=== PATIENT | male | born 1945 | race Caucasian/White ===

== ENCOUNTER 2017-07-07 12:32 | Observation (INO) | payer OTHER ==
--- OUTSIDE RECORDS SUMMARY | 2017-07-07 12:35 | XMS REPORT ---
:1945 Author Organization eClinicalWorks Care Team Providers Name Role Phone Drake Blanca Provider Role Unavailable Allergies, Adverse Reactions, Alerts Substance Reaction Event Type penicillin Info Not Available Drug Allergy Sulfa Info Not Available Drug Allergy Tetanus swelling Drug Allergy Low-Dose Aspirin hives Drug Allergy Problems Problem Type Condition Code Onset Dates Condition Status Problem Abnormal CT scan R93.8 Active Problem Lumbar radiculopathy M54.16 Active Problem Pure hypercholesterolemia E78.00 Active Problem Allergic rhinitis J30.9 Active Problem Obesity E66.9 Active Problem Hyperlipidemia E78.5 Active Problem Plantar fasciitis M72.2 Active Problem Colonic polyp K63.5 Active Problem Peripheral neuropathy G62.9 Active Problem HTN (hypertension) I10 Active Assessment Cough R05 Active Assessment Allergic rhinitis, unspecified J30.9 Active seasonality, unspecified trigger Problem Spinal stenosis of lumbar region M48.062 Active with neurogenic claudication Problem Anemia, mild D64.9 Active Medications Medication Code Code Instructions Start End Status Dosage System Date Cymbalta [facility] 73490199538 30 MG Orally Active 1 capsule Once a day Multivitamins [facility] 65247-38960 Active not defined Lisinopril [facility] 41237323804 20MG Active TAKE ONE TABLET BY MOUTH ONCE DAILY Triamcinolone ND 29698866566 0.1 % Mar 28, Active 1 application Acetonide Externally 2018 to affected Twice a day area PredniSONE ND 08986656465 20 MG Orally Active 1 tablet BID Fish Oil [facility] [address]-58 Active not defined CoQ-10 [facility] 89782-95752 Active not defined Proctosol HC [facility] 06102922695 2.5 % Rectal Active 1 application Twice a day to affected area Claritin [facility] 66947311162 10 MG Orally Active 1 capsule Once a day Flor Allergy ND 16512747846 180 MG Orally Active 1 tablet as Once a day needed Pravastatin ND 44488870165 40MG Active TAKE ONE Sodium TABLET BY MOUTH ONCE [place] [address]-49 Active not defined MiraLax [facility] 06622974947 - Orally Active not defined Results No Known Results Summary Purpose eClinicalWorks Submission
[2017-07-07] MEDS ORDERED: AZITHROMYCIN IV 500 MG in NA CHLORIDE 0.9% 250 ML IVPB ONE (14:00)
--- NOTE | 2017-07-07 14:22 | ER ---
Nurse's Notes [facility] Name: Terrence Monroy Age: 71 yrs Sex: Male : 1945 Arrival Date: 07/07/2017 Time: 12:36 Bed 16 Private MD: Alissa Uribe Diagnosis: Pneumonia due to other specified bacteria;Fever, unspecified;Hypoxemia Presentation: 07/07 12:39 Presenting complaint: Patient states: I have had a cough for over a week and its la1 getting worse, I get SOB very easy. Transition of care: patient was not received from another setting of care. Onset of symptoms was July 07, 2017. Initial Sepsis Screen: Does the patient meet any 2 criteria? RR > 20 per min. HR > 90 bpm. Does the patient have a suspected source of infection? Yes: Productive cough/pneumonia. Care prior to arrival: None. 12:39 Method Of Arrival: Ambulatory la1 12:39 Acuity: CARMEN 2 la1 Triage Assessment: 12:45 Respiratory: Onset: The symptoms/episode began/occurred gradually, the patient has rb1 moderate shortness of breath. Historical: - Allergies: 12:40 Aspirin; la1 12:40 PENICILLINS; la1 12:40 Tetanus-Diphtheria Toxoids-Td; la1 12:40 Sulfa (Sulfonamide Antibiotics); la1 - PMHx: 12:40 High Cholesterol; Hypertension; la1 - Immunization history:: Adult Immunizations up to date. - Social history:: Smoking status: Patient/guardian denies using tobacco. - Family history:: not pertinent. Screenin:45 Abuse screen: Denies threats or abuse. Nutritional screening: No deficits noted. rb1 Tuberculosis screening: No symptoms or risk factors identified. Fall Risk None identified. Assessment: 12:45 General: Appears in no apparent distress. comfortable, Behavior is calm, cooperative. rb1 Neuro: Level of Consciousness is awake, alert, obeys commands, Oriented to person, place, time, situation. Cardiovascular: Capillary refill < 3 seconds is brisk in bilateral fingers. Respiratory: Reports cough that is productive. Respiratory: Airway is patent Respiratory effort is even, labored, Respiratory pattern is regular, symmetrical. Derm: Skin is pink, warm \T\ dry. Musculoskeletal: Range of motion: intact in all extremities. 12:45 Pain: Denies pain. Cardiovascular: Rhythm is regular. rb1 12:45 Respiratory: Breath sounds are diminished bilaterally. Breath sounds with rhonchi rb1 Breath sounds with wheezes bilaterally. 13:40 Reassessment: Patient appears in no apparent distress at this time. No changes from rb1 previously documented assessment. 14:30 Reassessment: Patient appears in no apparent distress at this time. Patient and/or rb1 family updated on plan of care and expected duration. Pain level reassessed. Patient is alert, oriented x 3, equal unlabored respirations, skin warm/dry/pink. Medications delayed due to blood cultures needing to be drawn. 15:27 Reassessment: Patient appears in no apparent distress at this time. No changes from rb1 previously documented assessment. 16:20 Reassessment: Patient appears in no apparent distress at this time. Patient and/or rb1 family updated on plan of care and expected duration. Pain level reassessed. Patient is alert, oriented x 3, equal unlabored respirations, skin warm/dry/pink. Called report to SHANNON Nails. Information from the SB[facility] was given. All questions asked and answered. Patient denies pain at this time. Patient states symptoms have improved. Vital Signs: 12:40 BP 131 / 70; Pulse 132; Resp 24; Temp 98.3(O); Pulse Ox 91% on R/A; Weight 108.86 kg; la1 Height 6 ft. 0 in. (182.88 cm); 14:00 BP 136 / 72; Pulse 98; Resp 18; Pulse Ox 98% on R/A; rb1 15:00 BP 129 / 79; Pulse 89; Resp 19; Pulse Ox 99% on R/A; rb1 16:00 BP 132 / 71; Pulse 91; Resp 19; Pulse Ox 98% on R/A; rb1 12:40 Body Mass Index 32.55 (108.86 kg, 182.88 cm) la1 ED Course: 12:36 Patient arrived in ED. sb2 12:37 Alissa Uribe MD is Private Physician. sb2 12:39 Triage completed. la1 12:40 Arm band placed on left wrist. la1 12:42 Jevon Elizabeth MD is Attending Physician. gagandeep 12:45 Patient has correct armband on for positive identification. Bed in low position. Call rb1 light in reach. Pulse ox on. NIBP on. Warm blanket given. 13:02 Tara Rondon RN is Primary Nurse. rb1 13:52 X-ray completed. jw2 13:53 Chest Pa And Lat (2 Views) XRAY In Process Unspecified. EDMS 14:08 Inserted saline lock: 20 gauge in right antecubital area, using aseptic technique. aa5 Blood collected. 14:08 Initial lab(s) drawn, by me, sent to lab. First set of blood cultures drawn by me. aa5 14:20 Harley Navarro MD is Hospitalizing Provider. [facility] 14:22 Unable to collect 2nd set of blood cultures, lab contacted and construction laborer will come draw. aa5 17:00 No provider procedures requiring assistance completed. Patient admitted, IV remains in rb1 place. Administered Medications: 14:40 Drug: AtroVENT Aerosol 0.5 mg Route: Inhalation; rb1 14:40 Drug: SOLU-Medrol 125 mg Route: IVP; Site: right antecubital; rb1 15:59 Follow up: Response: No adverse reaction rb1 14:40 Drug: Xopenex 2.5 mg Route: Inhalation; rb1 14:45 Drug: NS 0.9% 1000 ml Route: IV; Rate: 1 bolus; Site: right antecubital; rb1 16:14 Follow up: IV Status: Completed infusion rb1 14:45 Drug: Rocephin - (cefTRIAXone) 2 grams Route: IVPB; Infused Over: 30 mins; Site: right rb1 antecubital; 14:50 Follow up: IV Status: Completed infusion rb1 15:10 Follow up: Response: No adverse reaction rb1 14:50 Drug: Zithromax 500 mg Route: IVPB; Infused Over: 1 hrs; Site: right antecubital; rb1 15:54 Follow up: Response: No adverse reaction; IV Status: Completed infusion rb1 15:54 Drug: Xopenex 2.5 mg Route: Inhalation; rb1 Outcome: 14:21 Decision to Hospitalize by Provider. gagandeep 17:00 Patient left the ED. rb1 17:00 Admitted to Tele accompanied by tech, via wheelchair, room 429, with chart, Report rb1 called to SHANNON Nails 17:00 Condition: stable 17:00 Instructed on the need for admit. Signatures: Dispatcher [employer] EDJevon Snider MD MD cha Calderon, Audri RN RN aa5 Willian Denny RN RN la1 Tara Rondon RN RN rb1 Coco Tian jw2 Rachel Dudley sb2 Corrections: (The following items were deleted from the chart) 15:57 12:45 Respiratory: Airway is patent Respiratory effort is even, unlabored, Respiratory rb1 pattern is regular, symmetrical, rb1 18:51 17:14 Patient left the ED. rb1 rb1 18:54 16:20 Reassessment: Patient appears in no apparent distress at this time. Patient rb1 and/or family updated on plan of care and expected duration. Pain level reassessed. Patient is alert, oriented x 3, equal unlabored respirations, skin warm/dry/pink. Patient denies pain at this time. Patient states symptoms have improved. rb1
--- NOTE | 2017-07-07 14:22 | EDPHYS ---
Physician Documentation [facility] Name: Terrence Monroy Age: 71 yrs Sex: Male : 1945 Arrival Date: 07/07/2017 Time: 12:36 Bed 16 Private MD: Alissa Uribe ED Physician Jevon Elizabeth HPI: 07/07 13:11 This 71 yrs old Male presents to ER via Ambulatory with complaints of gagandeep Productive Cough. 13:11 The patient or guardian reports cough, difficulty breathing. Onset: The gagandeep symptoms/episode began/occurred 3 day(s) ago. Severity of symptoms: At their worst the symptoms were moderate, in the emergency department the symptoms are unchanged. Modifying factors: The symptoms are alleviated by nothing, the symptoms are aggravated by nothing. Associated signs and symptoms: The patient has no apparent associated signs or symptoms. The patient has not experienced similar symptoms in the past. Historical: - Allergies: 12:40 Aspirin; la1 12:40 PENICILLINS; la1 12:40 Tetanus-Diphtheria Toxoids-Td; la1 12:40 Sulfa (Sulfonamide Antibiotics); la1 - PMHx: 12:40 High Cholesterol; Hypertension; la1 - Immunization history:: Adult Immunizations up to date. - Social history:: Smoking status: Patient/guardian denies using tobacco. - Family history:: not pertinent. ROS: 13:11 Constitutional: Negative for fever, chills, and weight loss, Eyes: Negative for injury, gagandeep pain, redness, and discharge, ENT: Negative for injury, pain, and discharge, Neck: Negative for injury, pain, and swelling, Abdomen/GI: Negative for abdominal pain, nausea, vomiting, diarrhea, and constipation, Back: Negative for injury and pain, : Negative for injury, bleeding, discharge, and swelling, MS/Extremity: Negative for injury and deformity, Skin: Negative for injury, rash, and discoloration, Neuro: Negative for headache, weakness, numbness, tingling, and seizure, Psych: Negative for depression, anxiety, suicide ideation, homicidal ideation, and hallucinations, Allergy/Immunology: Negative for hives, rash, and allergies, Endocrine: Negative for neck swelling, polydipsia, polyuria, polyphagia, and marked weight changes, Hematologic/Lymphatic: Negative for swollen nodes, abnormal bleeding, and unusual bruising. 13:11 Cardiovascular: Positive for chest pain, Negative for palpitations. Exam: 13:11 Constitutional: This is a well developed, well nourished patient who is awake, alert, gagandeep and in no acute distress. Head/Face: Normocephalic, atraumatic. Eyes: Pupils equal round and reactive to light, extra-ocular motions intact. Lids and lashes normal. Conjunctiva and sclera are non-icteric and not injected. Cornea within normal limits. Periorbital areas with no swelling, redness, or edema. ENT: Nares patent. No nasal discharge, no septal abnormalities noted. Tympanic membranes are normal and external auditory canals are clear. Oropharynx with no redness, swelling, or masses, exudates, or evidence of obstruction, uvula midline. Mucous membranes moist. Neck: Trachea midline, no thyromegaly or masses palpated, and no cervical lymphadenopathy. Supple, full range of motion without nuchal rigidity, or vertebral point tenderness. No Meningismus. Chest/axilla: Normal chest wall appearance and motion. Nontender with no deformity. No lesions are appreciated. Cardiovascular: Regular rate and rhythm with a normal S1 and S2. No gallops, murmurs, or rubs. Normal PMI, no JVD. No pulse deficits. Abdomen/GI: Soft, non-tender, with normal bowel sounds. No distension or tympany. No guarding or rebound. No evidence of tenderness throughout. Back: No spinal tenderness. No costovertebral tenderness. Full range of motion. Male : Normal genitalia with no discharge or lesions. Skin: Warm, dry with normal turgor. Normal color with no rashes, no lesions, and no evidence of cellulitis. MS/ Extremity: Pulses equal, no cyanosis. Neurovascular intact. Full, normal range of motion. Neuro: Awake and alert, GCS 15, oriented to person, place, time, and situation. Cranial nerves II-XII grossly intact. Motor strength 5/5 in all extremities. Sensory grossly intact. Cerebellar exam normal. Normal gait. Psych: Awake, alert, with orientation to person, place and time. Behavior, mood, and affect are within normal limits. 13:11 Respiratory: moderate respiratory distress is noted, Respirations: normal, Breath sounds: decreased breath sounds, rhonchi, wheezing: Respiratory rate: 24 Vital Signs: 12:40 BP 131 / 70; Pulse 132; Resp 24; Temp 98.3(O); Pulse Ox 91% on R/A; Weight 108.86 kg; la1 Height 6 ft. 0 in. (182.88 cm); 14:00 BP 136 / 72; Pulse 98; Resp 18; Pulse Ox 98% on R/A; rb1 15:00 BP 129 / 79; Pulse 89; Resp 19; Pulse Ox 99% on R/A; rb1 16:00 BP 132 / 71; Pulse 91; Resp 19; Pulse Ox 98% on R/A; rb1 12:40 Body Mass Index 32.55 (108.86 kg, 182.88 cm) la1 MDM: 12:42 Patient medically screened. [facility] 13:18 Data reviewed: vital signs, nurses notes, lab test result(s), EKG, radiologic studies, gagandeep plain films. 07/07 13:11 Order name: Basic Metabolic Panel; Complete Time: 15:06 [facility] 07/07 13:11 Order name: BNP; Complete Time: 15: [facility] 07/07 13:11 Order name: CBC with Diff; Complete Time: 15: [facility] 07/07 13:11 Order name: Ckmb; Complete Time: 15: [facility] 07/07 13:11 Order name: CPK; Complete Time: 15: [facility] 07/07 13:11 Order name: LFT's; Complete Time: 15: [facility] 07/07 13:11 Order name: Magnesium; Complete Time: 15:06 [facility] 07/07 13:11 Order name: PT-INR; Complete Time: 15: [facility] 07/07 13:11 Order name: Ptt, Activated; Complete Time: 15: [facility] 07/07 13:11 Order name: Troponin (emerg Dept Use Only); Complete Time: 15:06 [facility] 07/07 13:11 Order name: Lactate; Complete Time: 15: [facility] 07/07 13:11 Order name: Blood Culture Adult (2) [facility] 07/07 13:11 Order name: Procalcitonin; Complete Time: 15:06 [facility] 07/07 13:12 Order name: Blood Culture EDNE 07/07 13:11 Order name: EKG; Complete Time: 13:13 [facility] 07/07 13:11 Order name: Cardiac monitoring; Complete Time: 14:44 [facility] 07/07 13:11 Order name: EKG - Nurse/Tech; Complete Time: 16:15 [facility] 07/07 13:11 Order name: IV Saline Lock; Complete Time: 14:43 [facility] 07/07 13:11 Order name: Labs collected and sent; Complete Time: 14:44 [facility] 07/07 13:11 Order name: O2 Per Protocol; Complete Time: 14:44 [facility] 07/07 13:11 Order name: Chest Pa And Lat (2 Views) XRAY; Complete Time: 15:06 [facility] 07/07 16:28 Order name: Urine Dipstick--Ancillary (enter results) ag 07/07 17:07 Order name: Urine Dipstick-Ancillary EDMS 07/07 13:11 Order name: O2 Sat Monitoring; Complete Time: 14:44 [facility] 07/07 13:11 Order name: Urine Dipstick-Ancillary (obtain specimen); Complete Time: 16:22 [facility] Administered Medications: 14:40 Drug: AtroVENT Aerosol 0.5 mg Route: Inhalation; rb1 14:40 Drug: SOLU-Medrol 125 mg Route: IVP; Site: right antecubital; rb1 15:59 Follow up: Response: No adverse reaction rb1 14:40 Drug: Xopenex 2.5 mg Route: Inhalation; rb1 14:45 Drug: NS 0.9% 1000 ml Route: IV; Rate: 1 bolus; Site: right antecubital; rb1 16:14 Follow up: IV Status: Completed infusion rb1 14:45 Drug: Rocephin - (cefTRIAXone) 2 grams Route: IVPB; Infused Over: 30 mins; Site: right rb1 antecubital; 14:50 Follow up: IV Status: Completed infusion rb1 15:10 Follow up: Response: No adverse reaction rb1 14:50 Drug: Zithromax 500 mg Route: IVPB; Infused Over: 1 hrs; Site: right antecubital; rb1 15:54 Follow up: Response: No adverse reaction; IV Status: Completed infusion rb1 15:54 Drug: Xopenex 2.5 mg Route: Inhalation; rb1 Disposition: 07/07/17 14:21 Hospitalization ordered by Harley Navarro for Inpatient Admission. Preliminary diagnosis are Pneumonia due to other specified bacteria, Fever, unspecified, Hypoxemia. - Bed requested for Telemetry/MedSurg (Inpatient). - Status is Inpatient Admission. rb1 - Condition is Fair. - Problem is new. - Symptoms have improved. UTI on Admission? No Signatures: Dispatcher [employer] EDMS Jevon Elizabeth MD MD cha Attema, Lee RN RN la1 Mary Jo Chandra Rebecca, RN RN rb1 Corrections: (The following items were deleted from the chart) 15:59 14:21 Hospitalization Ordered by Harley Navarro MD for Inpatient Admission. ag Preliminary diagnosis is Pneumonia due to other specified bacteria; Fever, unspecified; Hypoxemia. Bed requested for Telemetry/MedSurg (Inpatient). Status is Inpatient Admission. Condition is Fair. Problem is new. Symptoms have improved. UTI on Admission? No. [facility] 17:14 15:59 07/07/2017 14:21 Hospitalization Ordered by Harley Navarro MD for Inpatient rb1 Admission. Preliminary diagnosis is Pneumonia due to other specified bacteria; Fever, unspecified; Hypoxemia. Bed requested for Telemetry/MedSurg (Inpatient). Status is Inpatient Admission. Condition is Fair. Problem is new. Symptoms have improved. UTI on Admission? No. ag
[2017-07-07 14:23] LABS: Absolute Lymphocytes (CBC) 2.2 K/uL (0.7-4.9); Absolute Monocytes 1.8 K/uL (0.1-1.3); Absolute Neutrophil 11.9 K/uL (1.8-8.0); Basophils % 0.6 % (0-1.3); Eosinophils % 0.9 % (0-4.4); Hematocrit 43.3 % (39.6-49.0); Lymphocytes % 13.6 % (15.3-44.8); MCH 31.4 pg (27.0-35.0); MCV 94.9 fL (80-100); MPV 8.8 fL (7.6-11.3); RBC Red Blood Cell Count 4.56 M/uL (4.33-5.43)
[2017-07-07 14:26] LABS: Protime INR 0.96
[2017-07-07 14:34] LABS: Potassium 4.3 mEq/L (3.6-5.0)
[2017-07-07 14:40] LABS: Bilirubin Direct 0.1 mg/dL (0-0.2); Bilirubin Total 0.8 mg/dL (0.3-1.2); Magnesium 2.1 mg/dL (1.8-2.5); Protein, Total 8.1 g/dL (6.0-8.3)
[2017-07-07 14:43] LABS: CKMB Creatine Kinase MB 1.7 ng/ml (0.3-4.0)
[2017-07-07] MEDS ORDERED: CEFTRIAXONE/SWI 2gm 2 GM/20 ML SYR IVP ONE (15:00)
[2017-07-07] MEDS ORDERED: CEFTRIAXONE/SWI 2gm 2 GM/20 ML SYR IV ONE (15:00)
--- NOTE | 2017-07-07 15:03 | RAD REPORT ---
EXAM DESCRIPTION: Raudel Cueva And Lat (2 Views)07/07/2017 1:58 pm CLINICAL HISTORY: Cough COMPARISON: August 2016 FINDINGS: Mild reticulonodular opacities are present within the left lower lobe. Right lung appears clear. The heart is normal size IMPRESSION: Mild reticulonodular opacities within left lower lobe may indicate an atypical pneumonia
--- NOTE | 2017-07-07 15:24 | P.HP ---
Certification for Inpatient Patient admitted to: Inpatient With expected LOS: >2 Midnights Practitioner: I am a practitioner with admitting privileges, knowledge of patient current condition, hospital course, and medical plan of care. Services: Services provided to patient in accordance with Admission requirements found in Title 42 Section 412.3 of the Code of Federal Regulations Patient History Date of Service: 07/07/17 Reason for admission: Productive cough and shortness of breath History of Present Illness: Patient is 71 years of age no significant past medical history admitted with 1 week history of a productive cough he went to urgent care it and was given medication for 10 days I presume antibiotic he took some Mucinex DM over-the- counter with no relief any ended up here in the emergency room while he brought his were HIDA severe my good in attack this morning also has some dyspnea for the past couple of days he denies any baseline dyspnea quit smoking 15 years ago former pack-a-day smoker no prior history of obstructive airways disease or any cardiac history Allergies aspirin Allergy (Verified 04/18/16 16:12) Itching/Hives/Rash Penicillins Allergy (Verified 04/18/16 16:12) Hives/Rash Tetanus Vaccines and Toxoid [Tetanus Vaccines & Toxoid] Allergy (Verified 16:12) Anaphylaxis Teta Allergy (Uncoded 09/06/16 17:31) Unknown Home Medications: Acetaminophen [Pain Reliever] 500 mg PO DAILY 06/23/14 Fish Oil/Borage/Flax/Om3,6,9#1 [[place] 3-6-9 1,200 mg Softgel] 1,200 mg PO DAILY 06/23/14 Lisinopril [Prinivil*] 20 mg PO [id number] 06/23/14 Multivitamin/Iron/Folic Acid [Multi-Day Plus Iron Tablet] 1 each PO DAILY Pravastatin [Pravachol*] 40 mg PO DAILY 06/23/14 Ubidecarenone [Co Q-10] 200 mg PO DAILY 06/23/14 Duloxetine HCl [Cymbalta] 30 mg PO DAILY 04/17/16 Polyethylene Glycol 3350 [Miralax] 17 gm PO DAILY 04/17/16 Turmeric/Turmeric Root Extract [Turmeric] 500 mg PO DAILY 04/17/16 - Past Medical/Surgical History Diabetic: No -: HTN -: ARTHRITIS -: CHOLESTEROL -: back surg 2006 -: back surg 2012 -: right shoulder replacement 2013 -: right knee replacement 2014 -: left knee replacement 2015 - Family History Father -: Heart disease, Hypertension Notes: mother had 2 strokes, bro diabetes Mother -: Stroke - Social History Alcohol use: No CD- Drugs: No Caffeine use: Yes Review of Systems 10-point ROS is otherwise unremarkable Physical Examination - Physical Exam General: Alert, Oriented x3, Mild distress HEENT: Atraumatic Neck: Supple Respiratory: Crackles/rales (Basilar crackles), Expiratory wheezes Cardiovascular: No edema, Regular rate/rhythm, Normal S1 S2 Gastrointestinal: Normal bowel sounds, Soft and benign Musculoskeletal: No clubbing, No swelling, No contractures Integumentary: No rashes, No breakdown, No significant lesion Neurological: Normal speech, Normal strength at 5/5 x4 extr, Cranial nerves 3- 12 intact - Studies Laboratory Data (last 24 hrs) 07/07/17 14:08: PT 11.3, INR 0.96, APTT 24.1 L 07/07/17 14:08: WBC 16.1 H, Hgb 14.3, Hct 43.3, Plt Count 247 07/07/17 14:08: B-Natriuretic Peptide 29 07/07/17 14:08: Sodium 133 L, Potassium 4.3, BUN 24 H, Creatinine 1.10, Glucose 96, Magnesium 2.1, Total Bilirubin 0.8, AST 23, ALT 26, Alkaline Phosphatase 64 Assessment and Plan - Problems (Diagnosis) (1) COPD (chronic obstructive pulmonary disease) Current Visit: Yes Status: Acute Plan: Patient is 71 years of age admitted with a week's history of or duct of cough that would not and improve with antibiotics and Mucinex DM admission precipitated by a shortness of breath is a former smoker the multiple orthopedic problems blood pressure thus well controlled no prior history of coronary artery disease I suspect that he has underlying COPD chest x-rays clear labs unremarkable apart from a mildly elevated white count treated with steroids fluoroquinolones and bronchodilators he can probably be discharged home tomorrow on low-dose prednisone 10 mg twice a day for 7 days and Advair follow-up with me in 2 weeks may be levofloxacin for 304 days 2D echo with Doppler Rodri room-air pulse ox - Advance Directives Does patient have a Living Will: Yes Does patient have a Durable POA for Healthcare: Yes
[2017-07-07 17:06] LABS: Urine Blood NEGATIVE (NEG); Urine Glucose NEGATIVE (NEG); Urine Protein NEGATIVE (NEG); Urine Specific Gravity 1.015 (1.005-1.030)
[2017-07-07] MEDS: levoFLOXacin 500 MG TAB PO SCH (17:22)
[2017-07-07] MEDS: METHYLPREDNISOLONE 40 MG INJ IV SCH (17:22)
[2017-07-07 18:47] VITALS: BMI 4686.6
[2017-07-07] MEDS: ARFORMOTEROL TARTRATE 15 MCG/2 ML VIAL.NEB NEB SCH (20:07)
[2017-07-07] MEDS: IPRATROPIUM BROM 0.5MG/2.5ML NEB SCH (20:07)
[2017-07-08] MEDS: METHYLPREDNISOLONE 40 MG INJ IV SCH ×2 (00:42→09:16)
[2017-07-08] MEDS: IPRATROPIUM BROM 0.5MG/2.5ML NEB SCH ×3 (01:32→14:44)
[2017-07-08 05:27] LABS: Hematocrit 37.7 % (39.6-49.0); MCH 31.8 pg (27.0-35.0); MCV 95.5 fL (80-100); MPV 9.1 fL (7.6-11.3); RBC Red Blood Cell Count 3.95 M/uL (4.33-5.43)
[2017-07-08] MEDS ORDERED: LISINOPRIL 10 MG TAB PO SCH (06:00)
--- NOTE | 2017-07-08 08:01 | EKG ---
Test Date: 2017-07-07 Test Time: 16:14:11 Prosthodontist/Owner: JOSHUA MEASUREMENT RESULTS: Intervals: Rate: 101 MD: 138 QRSD: 92 QT: 366 QTc: 474 [place]: P: 58 MD: 138 QRS: -23 T: 59 INTERPRETIVE STATEMENTS: Sinus tachycardia Otherwise normal ECG Compared to ECG 09/06/2016 12:56:01 Sinus rhythm no longer present Atrial premature complex(es) no longer present Prolonged QT interval no longer present Electronically Signed On 07-08-17 07:59:54 CDT by Daniel Gandara
[2017-07-08] MEDS: ARFORMOTEROL TARTRATE 15 MCG/2 ML VIAL.NEB NEB SCH (08:25)
[2017-07-08] MEDS ORDERED: DULOXETINE 30 MG CAP PO SCH (09:00)
[2017-07-08] MEDS: levoFLOXacin 500 MG TAB PO SCH (09:16)
--- NOTE | 2017-07-08 10:42 | RAD REPORT ---
EXAM DESCRIPTION: RAD - Chest Pa And Lat (2 Views) - 07/08/2017 10:34 am CLINICAL HISTORY: Pneumonia, COPD COMPARISON: 07/07/2017, 09/06/2016 FINDINGS: Mild diffuse COPD is present. Reticular opacities in left lung base posteriorly appears es sentially stable since comparative study. The heart is normal in size. No displaced fractures. Bilate ral shoulder arthroplasty noted. IMPRESSION: Diffuse COPD with no significant change in reticular opacity in the left mid lung night clerk iorly.
--- NOTE | 2017-07-08 11:05 | ECHO ---
HEIGHT: 0 ft 6 in WEIGHT: 240 lb 0 oz DATE OF STUDY: 10/08/[address]: Harley Navarro MD 2-DIMENSIONAL: YES M.MODE: YES DOPPLER: YES COLOR FLOW: YES TDS: NO PORTABLE: NO DEFINITY: NO BUBBLE STUDY: NO DIAGNOSIS: DYSPNEA CARDIAC HISTORY: CATHERIZATION: NO SURGERY: NO PROSTHETIC VALVE: NO PACEMAKER: NO MEASUREMENTS (cm) DIASTOLIC (NORMALS) SYSTOLIC (NORMALS) IVSd 1.1 (0.6-1.2) LA Diam 3.8 (1.9-4.0) LVEF 74% LVIDd 4.3 (3.5-5.7) LVIDs 2.5 (2.0-3.5) %FS 43% LVPWd 1.0 (0.6-1.2) Ao Diam 2.9 (2.0-3.7) 2 DIMENSIONAL ASSESSMENT: RIGHT ATRIUM: NORMAL LEFT ATRIUM: NORMAL RIGHT VENTRICLE: NORMAL LEFT VENTRICLE: NORMAL TRICUSPID VALVE: NORMAL MITRAL VALVE: NORMAL PULMONIC VALVE: NORMAL AORTIC VALVE: MILD SCLEROSIS PERICARDIAL EFFUSION: NONE AORTIC ROOT: NORMAL LEFT VENTRICULAR WALL MOTION: NORMAL. DOPPLER/COLOR FLOW: NO AORTIC STENOSIS OR AORTIC REGURGITATION. NORMAL CARDIAC DOPPLER. COMMENTS: NORMAL LEFT VENTRICULAR EJECTION FRACTION. AORTIC SCLEROSIS WITH NO AORTIC STENOSIS OR AORTIC REGURGITATION. OTHERWISE NORMAL 2D CHO WITH DOPPLER. TECHNOLOGIST: ELVIN PACK
--- NOTE | 2017-07-08 15:02 | P.DS ---
Admission Date: 07/07/17 Discharge Date: 07/08/17 Primary Care Provider: Dr. Uribe Disposition: ROUTINE DISCHARGE Discharge Condition: GOOD Reason for Admission: Productive cough and shortness of breath Consultations: Pulmonology-Dr. Navarro Procedures: Echocardiogram: Ejection fraction 74% Chest xray: FINDINGS: Mild reticulonodular opacities are present within the left lower lobe. Right lung appears clear. The heart is normal size IMPRESSION: Mild reticulonodular opacities within left lower lobe may indicate an atypical pneumonia - Problems (1) Shortness of breath Current Visit: Yes Status: Acute (2) Hypertension Current Visit: Yes Status: Chronic Qualifiers: Hypertension type: essential hypertension Qualified Code(s): I10 - Essential (primary) hypertension (3) Pneumonia Current Visit: Yes Status: Acute Qualifiers: Pneumonia type: due to unspecified organism Laterality: left Lung location: lower lobe of lung Qualified Code(s): J18.1 - Lobar pneumonia, unspecified organism (4) Hyperlipidemia Current Visit: Yes Status: Chronic Qualifiers: Hyperlipidemia type: unspecified Qualified Code(s): E78.5 - Hyperlipidemia , unspecified (5) CHF (congestive heart failure) Current Visit: Yes Status: Chronic Qualifiers: Heart failure type: diastolic Heart failure chronicity: chronic Qualified Code(s): I50.32 - Chronic diastolic (congestive) heart failure (6) COPD (chronic obstructive pulmonary disease) Current Visit: Yes Status: Acute Qualifiers: COPD type: COPD with acute exacerbation Qualified Code(s): J44.1 - Chronic obstructive pulmonary disease with (acute) exacerbation (7) Former tobacco use Current Visit: Yes Status: Chronic Brief History of Present Illness: 71-year-old male presented emergency room with increasing shortness of breath and cough. Patient evaluated emergency room. COPD exacerbation with possible atypical pneumonia was suspected. Patient was admitted for evaluation and treatment. Hospital Course: Patient presented with shortness of breath and cough. Patient with history of former tobacco use. Patient evaluated by pulmonology. Pulmonology felt the patient had underlying COPD exacerbation with atypical pneumonia. Echocardiogram showed an ejection fraction 75%. A component of possible diastolic CHF was also identified. Patient did well during the course of his stay. At discharge he did not require any oxygen. He was without any significant chest pain or shortness of breath. At discharge for his COPD has been started on Symbicort 160 mcg 2 puffs twice daily and Pro air 2 puffs 3 times a day as needed for shortness of breath. Patient will continue with prednisone 20 mg 1 pill twice daily for 5 days then 1 pill once daily for 5 days. Recommendation is to recheck chest x-ray in 2-4 weeks to monitor his progress. Recommendation is for the patient follow up with pulmonology as an outpatient for pulmonary function test evaluation. Patient found to have atypical pneumonia. Patient will continue with Levaquin 500 mg 1 pill daily for 7 days. As for possible CHF patient will continue with a 1500 cc per day fluid restriction. This can be further monitored and evaluated as an outpatient by his PCP. Patient has HTN. He will continue with his medication.Recommendation is to maintain blood pressures less 150/80. Further adjustment can be done by his PCP. Patient has hyperlipidemia. Patient continue with his medication. Vital Signs/Physical Exam: Temp Pulse Resp BP Pulse Ox 97.1 F 70 18 118/64 93 07/08/17 12:00 07/08/17 12:00 07/08/17 12:00 07/08/17 12:00 07/08/17 12:00 General: Alert, In no apparent distress, Oriented x3, Cooperative HEENT: Atraumatic Neck: Supple Respiratory: Expiratory wheezes (Minimal wheezing bilateral) Cardiovascular: Normal pulses, Regular rate/rhythm Gastrointestinal: Normal bowel sounds, Soft and benign, Non-distended, No tenderness, No masses, No rebound, No guarding Musculoskeletal: No erythema, No tenderness, No warmth Integumentary: No tenderness/swelling, No erythema, No warmth, No cyanosis Neurological: Normal speech, Normal strength at 5/5 x4 extr, Normal tone, Normal affect Lymphatics: No axilla or inguinal lymphadenopathy Laboratory Data at Discharge: WBC 13.0 K/uL (4.3-10.9) H D 07/08/17 04:58 Hgb 12.6 g/dL (13.6-17.9) L 07/08/17 04:58 Hct 37.7 % (39.6-49.0) L 07/08/17 04:58 Plt Count 217 K/uL (152-406) 07/08/17 04:58 PT 11.3 SECONDS (9.5-12.5) 07/07/17 14:08 INR 0.96 07/07/17 14:08 APTT 24.1 SECONDS (24.3-36.9) L 07/07/17 14:08 Sodium 133 mEq/L (135-145) L 07/07/17 14:08 Potassium 4.3 mEq/L (3.6-5.0) 07/07/17 14:08 BUN 24 mg/dL (6-20) H 07/07/17 14:08 Creatinine 1.10 mg/dL (0.61-1.24) 07/07/17 14:08 Glucose 96 mg/dL (65-120) 07/07/17 14:08 Magnesium 2.1 mg/dL (1.8-2.5) 07/07/17 14:08 Total Bilirubin 0.8 mg/dL (0.3-1.2) 07/07/17 14:08 AST 23 IU/L (10-42) 07/07/17 14:08 ALT 26 IU/L (10-60) 07/07/17 14:08 Alkaline Phosphatase 64 IU/L (42-121) 07/07/17 14:08 B-Natriuretic Peptide 29 pg/ml (<=100) 07/07/17 14:08 Home Medications: Acetaminophen [Pain Reliever] 500 mg PO DAILY 06/23/14 Fish Oil/Borage/Flax/Om3,6,9#1 [[place] 3-6-9 1,200 mg Softgel] 1,200 mg PO DAILY 06/23/14 Lisinopril [Prinivil*] 20 mg PO [id number] 06/23/14 Multivitamin/Iron/Folic Acid [Multi-Day Plus Iron Tablet] 1 each PO DAILY Pravastatin [Pravachol*] 40 mg PO DAILY 06/23/14 Ubidecarenone [Co Q-10] 200 mg PO DAILY 06/23/14 Duloxetine HCl [Cymbalta] 30 mg PO DAILY 04/17/16 Polyethylene Glycol 3350 [Miralax] 17 gm PO DAILY 04/17/16 Turmeric/Turmeric Root Extract [Turmeric 500 mg Capsule] 500 mg PO DAILY Albuterol Sulfate [Proair Hfa] 8.5 gm IH TID PRN #1 hfa.aer.ad 05/21/18 Budesonide/Formoterol Fumarate [Symbicort 160-4.5 Mcg Inhaler] 2 puff IH BID #1 hfa.aer.ad 07/08/17 Levofloxacin [Levaquin*] 500 mg PO DAILY #7 tab 07/08/17 Prednisone [Deltasone] 20 mg PO SEECOM #15 tab 07/08/17 New Medications: Albuterol Sulfate [Proair Hfa] 8.5 gm IH TID PRN #1 hfa.aer.ad PRN Reason: Shortness Of Breath Budesonide/Formoterol Fumarate [Symbicort 160-4.5 Mcg Inhaler] 2 puff IH BID #1 hfa.aer.ad Levofloxacin [Levaquin*] 500 mg PO DAILY #7 tab Prednisone [Deltasone] 20 mg PO SEECOM #15 tab Patient Discharge Instructions: 1. Patient will need to follow up with his PCP in 1 week to follow up this hospitalization. 2. Patient presented with shortness of breath and cough. Patient with history of former tobacco use. Patient evaluated by pulmonology. Pulmonology found to have underlying COPD exacerbation with atypical pneumonia. Echocardiogram showed an ejection fraction 75%. A component of possible diastolic CHF was also identified. Patient did well during the course of his stay. At discharge for his COPD, he has been started on Symbicort 160 mcg 2 puffs twice daily and Pro air 2 puffs 3 times a day as needed for shortness of breath. Patient will continue with prednisone 20 mg 1 pill twice daily for 5 days then 1 pill once daily for 5 days. Recommendation is to recheck chest x-ray in 2-4 weeks to monitor his progress. Recommendation is for the patient follow up with pulmonology as an outpatient for pulmonary function test evaluation. Patient found to have atypical pneumonia. Patient will continue with Levaquin 500 mg 1 pill daily for 7 days. As for possible CHF patient will continue with a 1500 cc per day fluid restriction. This can be further monitored and evaluated as an outpatient by his PCP. 3. Patient has HTN. He will continue with his medication.Recommendation is to maintain blood pressures less 150/80. Further adjustment can be done by his PCP. 4. Patient has hyperlipidemia. Patient continue with his medication. Diet: AHA Activity: Ad yolette Time spent managing pt's care (in minutes): 55
[2017-07-08 16:08] VITALS: O2SAT 94
[2017-07-08 17:39] VITALS: BP 122/64; TEMP 97.3
== END 2017-07-08 16:36 | disposition home or self-care (01) ==
LOC: ER 12:32 → ERHOLD 14:22 → INTOOBSV 14:22 → 4TH 16:26
PROVIDERS: ADMIT Internal Medicine Sleep Medicine; ATTEND Internal Medicine Sleep Medicine
DX: J44.0 Chronic obstructive pulmonary disease with (acute) lower respiratory infection (principal); J18.9 Pneumonia, unspecified organism; J44.1 Chronic obstructive pulmonary disease with (acute) exacerbation; Z87.891 Personal history of nicotine dependence; E78.5 Hyperlipidemia, unspecified; I10 Essential (primary) hypertension; Z88.6 Allergy status to analgesic agent; Z88.0 Allergy status to penicillin; Z88.7 Allergy status to serum and vaccine; Z96.611 Presence of right artificial shoulder joint; Z96.653 Presence of artificial knee joint, bilateral
CPT/HCPCS: 36415; 71046 ×2; 80048; 80076; 81003; 82550; 82553; 83605; 83735; 83880; 84145; 84484; 85025; 85027; 85610; 85730; 87040 ×2; 87070; 87077; 87186; 87205 ×2; 93005; 93306; 94640; 96361; 96365; 96375; 99285; G0378 ×2; J0456; J0696; J2920 ×3; J7605 ×2

== ENCOUNTER 2017-07-19 15:39 | Emergency (ER) | payer OTHER ==
--- OUTSIDE RECORDS SUMMARY | 2017-07-19 15:41 | XMS REPORT ---
[...] End Status Dosage System Date Cymbalta [facility] 61285213187 30 MG Orally Active 1 capsule Once a day Multivitamins [facility] [address] Active not defined Lisinopril [facility] 75228092979 20MG Active TAKE ONE TABLET BY MOUTH ONCE DAILY Triamcinolone ND 03476221287 0.1 % Mar 28, Active 1 application Acetonide Externally 2018 to affected Twice a day area PredniSONE ND 12669533713 20 MG Orally Active 1 tablet BID Fish Oil [facility] [address]-52 Active not defined CoQ-10 [facility] [address]851 Active not defined Proctosol HC [facility] 07908818163 2.5 % Rectal Active 1 application Twice a day to affected area Claritin [facility] 58715188345 10 MG Orally Active 1 capsule Once a day Flor Allergy ND 27170377896 180 MG Orally Active 1 tablet as Once a day needed Pravastatin ND 50635526407 40MG Active TAKE ONE Sodium TABLET BY MOUTH ONCE [place] [address]-51 Active not defined MiraLax [facility] 17790031851 - Orally Active not defined Results No Known Results Summary Purpose eClinicalWorks Submission
--- OUTSIDE RECORDS SUMMARY | 2017-07-19 15:41 | XMS REPORT ---
:1945 Author Organization eClinicalWorks Care Team Providers Name Role Phone Uribe, Na Provider Role Unavailable Allergies, Adverse Reactions, Alerts Substance Reaction Event Type penicillin Info Not Available Drug Allergy Tetanus swelling [...] Active Problem HTN (hypertension) I10 Active Assessment Hyperlipidemia E78.5 Active Assessment HTN (hypertension) I10 Active Problem Spinal stenosis of lumbar region M48.062 Active with neurogenic claudication Assessment Allergic rhinitis J30.9 Active Problem Anemia, mild D64.9 Active Medications Medication Code Code Instructions Start End Status Dosage System Date Date Lisinopril ND 09739929980 10 MG Orally Inactive 1 tablet Once a day Cymbalta [facility] 88997174685 30 MG Orally Active 1 capsule Once a day Flor Allergy [facility] 15675060186 180 MG Orally Active 1 tablet as Once a day needed Triamcinolone ND 94758808236 0.1 % Mar 28, Active 1 application Acetonide Externally 2018 to affected Twice a day area Lisinopril [facility] 98563365746 20MG Active TAKE ONE TABLET BY MOUTH ONCE DAILY Pravastatin ND 63777816218 40MG Active TAKE ONE Sodium TABLET BY MOUTH ONCE DAILY AT BEDTIME MiraLax ND 04180533347 - Orally Active not defined Proctosol HC ND 29329375151 2.5 % Rectal Active 1 application Twice a day to affected area Duloxetine HCl ND 82806107702 30MG Active TAKE ONE CAPSULE BY MOUTH AT BEDTIME Claritin ND 15085885827 10 MG Orally Active 1 capsule Once a day Results No Known Results Summary Purpose eClinicalWorks Submission
[2017-07-19] MEDS ORDERED: ONDANSETRON 4 MG/2 ML VIAL ONE (16:11)
--- NOTE | 2017-07-19 16:41 | RAD REPORT ---
EXAM DESCRIPTION: CT - Head Brain Wo Cont - 07/19/2017 4:10 pm CLINICAL HISTORY: Headache COMPARISON: August 2016 TECHNIQUE: Computed axial tomography of the head was obtained. IV contrast was not requested. All CT scans are performed using dose optimization technique as appropriate and may include automated exposure control or mA/KV adjustment according to patient size. FINDINGS: An intracranial bleed is not seen . The ventricles are normal in caliber. No extra-axial fluid collection is noted. A 15 millimeter left cerebral calcification is unchanged co mpatible with a cavernous angioma Fluid within the maxillary sinuses is seen IMPRESSION: No acute intracranial abnormality is seen. If patient's symptoms persist MRI of the bra in would be recommended. Bilateral acute maxillary sinusitis
[2017-07-19] MEDS ORDERED: DIPHENHYDRAMINE 50 MG/ML VIAL ONE (17:15)
[2017-07-19] MEDS ORDERED: DEXAMETHASONE 10 MG/ML VIAL ONE (17:15)
[2017-07-19] MEDS ORDERED: METOCLOPRAMIDE 10 MG/2mL INJ ONE (17:29)
--- NOTE | 2017-07-19 18:22 | EDPHYS ---
Physician Documentation [facility] Name: Terrence Monroy Age: 71 yrs Sex: Male : 1945 Arrival Date: 07/19/2017 Time: 15:43 Bed 20 Private MD: Alissa Uribe ED Physician Shahzad Reilly HPI: 07/19 17:00 This 71 yrs old Male presents to ER via Wheelchair with complaints of pm1 Headache. 17:00 The patient complains of pain to the behind left eye. The patient describes the pm1 headache as constant. Onset: The symptoms/episode began/occurred at 03:00. Associated signs and symptoms: Pertinent positives: nausea, Pertinent negatives: dizziness, fever, rash, vision changes, vision loss, vomiting, weakness. Severity of symptoms: in the emergency department the pain is actually worse. Headache History: The patient has had previous headaches and this one is similar to previous episodes. The patient has experienced similar episodes in the past, multiple times. Patient with headache behind his left eye. Presents like his prior headaches but the headache did not go away with Tylenol and sleep as his prior headaches have resolved. Historical: - Allergies: 16:06 Aspirin; em 16:06 PENICILLINS; em 16:06 Sulfa (Sulfonamide Antibiotics); em 16:06 Tetanus-Diphtheria Toxoids-Td; em - Home Meds: 16:07 lisinopril 20 mg Oral tab 1 tab once daily [Active]; pravastatin 40 mg oral tab 1 tab em once daily [Active]; duloxetine 30 mg oral cpDR 1 cap once daily [Active]; meclizine 25 mg Oral tab as needed [Active]; - PMHx: 16:06 High Cholesterol; Hypertension; em 16:07 CHF; COPD; em - Immunization history:: Adult Immunizations up to date. - Social history:: Smoking status: Patient/guardian denies using tobacco. - Ebola Screening: : No symptoms or risks identified at this time. ROS: 17:00 Constitutional: Negative for fever, chills, and weight loss, Eyes: Negative for injury, pm1 pain, redness, and discharge, ENT: Negative for injury, pain, and discharge, Neck: Negative for injury, pain, and swelling, Cardiovascular: Negative for chest pain, palpitations, and edema, Respiratory: Negative for shortness of breath, cough, wheezing, and pleuritic chest pain, Back: Negative for injury and pain, MS/Extremity: Negative for injury and deformity, Skin: Negative for injury, rash, and discoloration. 17:00 Abdomen/GI: Positive for nausea, Negative for abdominal pain, vomiting, diarrhea. 17:00 Neuro: Positive for headache, Negative for altered mental status, dizziness. Exam: 17:00 Constitutional: This is a well developed, well nourished patient who is awake, alert, pm1 and in no acute distress. Head/Face: Normocephalic, atraumatic. Eyes: Pupils equal round and reactive to light, extra-ocular motions intact. Lids and lashes normal. Conjunctiva and sclera are non-icteric and not injected. Cornea within normal limits. Periorbital areas with no swelling, redness, or edema. ENT: Nares patent. No nasal discharge, no septal abnormalities noted. Tympanic membranes are normal and external auditory canals are clear. Oropharynx with no redness, swelling, or masses, exudates, or evidence of obstruction, uvula midline. Mucous membranes moist. Neck: Trachea midline, no thyromegaly or masses palpated, and no cervical lymphadenopathy. Supple, full range of motion without nuchal rigidity, or vertebral point tenderness. No Meningismus. Chest/axilla: Normal chest wall appearance and motion. Nontender with no deformity. No lesions are appreciated. Cardiovascular: Regular rate and rhythm with a normal S1 and S2. No gallops, murmurs, or rubs. Normal PMI, no JVD. No pulse deficits. Respiratory: Lungs have equal breath sounds bilaterally, clear to auscultation and percussion. No rales, rhonchi or wheezes noted. No increased work of breathing, no retractions or nasal flaring. Abdomen/GI: Soft, non-tender, with normal bowel sounds. No distension or tympany. No guarding or rebound. No evidence of tenderness throughout. Back: No spinal tenderness. No costovertebral tenderness. Full range of motion. Skin: Warm, dry with normal turgor. Normal color with no rashes, no lesions, and no evidence of cellulitis. MS/ Extremity: Pulses equal, no cyanosis. Neurovascular intact. Full, normal range of motion. 17:00 Neuro: Orientation: is normal, Mentation: is normal, Cranial nerves: CN II- XII are normal as tested, Cerebellar function: normal finger to nose testing, Motor: moves all fours, strength is 5/5 in all extremities, Sensation: is normal, no obvious gross deficits. Vital Signs: 16:04 BP 101 / 64; Pulse 68; Resp 16; Temp 97.5(O); Pulse Ox 96% on R/A; Weight 115.21 kg; em Height 6 ft. 0 in. (182.88 cm); Pain 8/10; 16:49 BP 118 / 73; Pulse 62; Resp 18; Pulse Ox 98% on R/A; em 17:37 BP 117 / 73; Pulse 59; Resp 16; Pulse Ox 96% on R/A; Pain 6/10; em 18:45 BP 116 / 66; Pulse 75; Resp 18; Pulse Ox 100% on R/A; Pain 2/10; em 16:04 Body Mass Index 34.45 (115.21 kg, 182.88 cm) em MDM: 15:47 Patient medically screened. pm1 18:21 Data reviewed: vital signs. Data interpreted: Pulse oximetry: on room air is 96 %. pm1 Interpretation: normal. Counseling: I had a detailed discussion with the patient and/or guardian regarding: the historical points, exam findings, and any diagnostic results supporting the discharge/admit diagnosis, radiology results, the need for outpatient follow up, to return to the emergency department if symptoms worsen or persist or if there are any questions or concerns that arise at home. 07/19 15:56 Order name: CT Head Brain wo Cont; Complete Time: 16:52 pm1 07/19 15:56 Order name: IV Saline Lock; Complete Time: 16:21 pm1 Administered Medications: 16:21 Drug: Zofran 4 mg Route: IVP; Site: right antecubital; ae1 17:21 Follow up: Response: No adverse reaction em 17:18 Drug: Benadryl 12.5 mg Route: IVP; Site: right antecubital; ae1 18:57 Follow up: Response: No adverse reaction; Pain is decreased em 17:22 Drug: Decadron - Dexamethasone 10 mg Route: IVP; Site: right antecubital; ae1 18:57 Follow up: Response: No adverse reaction; Pain is decreased em 17:30 Drug: Reglan 10 mg Route: IVP; Site: right antecubital; ae1 18:57 Follow up: Response: No adverse reaction; Pain is decreased em Point of Care Testing: Blood Glucose: 15:47 Blood Glucose: 90 mg/dL; ae1 Ranges: Critical Glucose Levels:Adult <50 mg/dl or >400 mg/dl <40 mg/dl or >180 mg/dl Disposition: 07/19/17 18:21 Discharged to Home. Impression: Headache. - Condition is Stable. - Discharge Instructions: General Headache Without Cause, Migraine Headache. - Medication Reconciliation Form, Thank You Letter form. - Follow up: Emergency Department; When: As needed; Reason: Worsening of condition. Follow up: Alissa Uribe MD; When: 2 - 3 days; Reason: Recheck today's complaints, Continuance of care, Re-evaluation by your physician. - Problem is new. - Symptoms have improved. Signatures: Dispatcher [employer] EDMS Marko Sam, PROFESSOR CRIMINAL JUSTICE PROFESSOR CRIMINAL JUSTICE em Aldo Rubio, [employer] T[employer]OR pm1 Andres Cedillo RN RN ae1 Corrections: (The following items were deleted from the chart) 18:58 18:21 07/19/2017 18:21 Discharged to Home. Impression: Headache. Condition is Stable. em Forms are Medication Reconciliation Form, Thank You Letter, Antibiotic Education, Prescription Opioid Use. Follow up: Emergency Department; When: As needed; Reason: Worsening of condition. Follow up: Alissa Uribe; When: 2 - 3 days; Reason: Recheck today's complaints, Continuance of care, Re-evaluation by your physician. Problem is new. Symptoms have improved. pm1
--- NOTE | 2017-07-19 18:22 | ER ---
Nurse's Notes [facility] Name: Terrence Monroy Age: 71 yrs Sex: Male : 1945 Arrival Date: 07/19/2017 Time: 15:43 Bed 20 Private MD: Alissa Uribe Diagnosis: Headache Presentation: 07/19 16:01 Presenting complaint: Patient states: has had a headache since 0300 this morning, hx of em headaches but this one is worse, c/o pain behind left eye described as sharp rates 8/10, reports nausea, denies vomiting, was seen by neurologist yesterday. Transition of care: patient was not received from another setting of care. Onset of symptoms was July 19, 2017. Risk Assessment: Do you want to hurt yourself or someone else? Patient reports no desire to harm self or others. Initial Sepsis Screen: Does the patient meet any 2 criteria? No. Patient's initial sepsis screen is negative. Does the patient have a suspected source of infection? No. Patient's initial sepsis screen is negative. Care prior to arrival: None. 16:01 Method Of Arrival: Wheelchair em 16:01 Acuity: CARMEN 3 aa5 Triage Assessment: 16:08 Headache History: The patient has had previous headaches and this one is more severe em than previous episodes. General: Appears in no apparent distress. uncomfortable, Behavior is cooperative. Pain: Also complains of. Pain: Complains of pain in left eye. Pain: Pain currently is 8 out of 10 on a pain scale. Quality of pain is described as sharp, Pain began 0300. Neuro: Level of Consciousness is awake, alert, obeys commands, Oriented to person, place, time, situation, Clinical Rn are equal bilaterally Speech is normal, Facial symmetry appears normal, Pupils are PERRLA, Reports headache in left. Cardiovascular: Cardiovascular: Capillary refill < 3 seconds. Respiratory: Airway is patent Respiratory effort is even, unlabored, Respiratory pattern is regular, symmetrical. GI: Abdomen is flat. : No signs and/or symptoms were reported regarding the genitourinary system. Derm: Skin is intact, Skin is clammy, Skin is dusky, Skin temperature is cool. Musculoskeletal: Range of motion: intact in all extremities. Historical: - Allergies: 16:06 Aspirin; em 16:06 PENICILLINS; em 16:06 Sulfa (Sulfonamide Antibiotics); em 16:06 Tetanus-Diphtheria Toxoids-Td; em - Home Meds: 16:07 lisinopril 20 mg Oral tab 1 tab once daily [Active]; pravastatin 40 mg oral tab 1 tab em once daily [Active]; duloxetine 30 mg oral cpDR 1 cap once daily [Active]; meclizine 25 mg Oral tab as needed [Active]; - PMHx: 16:06 High Cholesterol; Hypertension; em 16:07 CHF; COPD; em - Immunization history:: Adult Immunizations up to date. - Social history:: Smoking status: Patient/guardian denies using tobacco. - Ebola Screening: : No symptoms or risks identified at this time. Screenin:20 Abuse screen: Denies threats or abuse. Nutritional screening: No deficits noted. em Tuberculosis screening: No symptoms or risk factors identified. Fall Risk None identified. Assessment: 16:07 General: Appears in no apparent distress. uncomfortable, Behavior is cooperative. Pain: em Complains of pain in left eye Pain currently is 8 out of 10 on a pain scale. Pain began 0300. Neuro: Level of Consciousness is awake, alert, obeys commands, Oriented to person, place, time, situation. Cardiovascular: Capillary refill < 3 seconds Patient's skin is warm and dry. Respiratory: Airway is patent Respiratory effort is even, unlabored, Respiratory pattern is regular, symmetrical. GI: Abdomen is flat. : No signs and/or symptoms were reported regarding the genitourinary system. Derm: Skin is intact, Skin is clammy, Skin is dusky, Skin temperature is cool. 16:07 Reassessment: I agree with assessment completed by Marko Sam LVN . aa5 16:07 GI: Reports nausea. aa5 16:49 Reassessment: Patient appears in no apparent distress at this time. Patient and/or em family updated on plan of care and expected duration. Pain level reassessed. Patient is alert, oriented x 3, equal unlabored respirations, skin warm/dry/pink. 17:45 Reassessment: Patient appears in no apparent distress at this time. Patient and/or em family updated on plan of care and expected duration. Pain level reassessed. Patient is alert, oriented x 3, equal unlabored respirations, skin warm/dry/pink. rates pain 3/10 Patient states feeling better. Patient states symptoms have improved. 18:48 Reassessment: Patient appears in no apparent distress at this time. Patient and/or em family updated on plan of care and expected duration. Pain level reassessed. Patient is alert, oriented x 3, equal unlabored respirations, skin warm/dry/pink. pt ambulated to the restroom Patient states feeling better. Vital Signs: 16:04 BP 101 / 64; Pulse 68; Resp 16; Temp 97.5(O); Pulse Ox 96% on R/A; Weight 115.21 kg; em Height 6 ft. 0 in. (182.88 cm); Pain 8/10; 16:49 BP 118 / 73; Pulse 62; Resp 18; Pulse Ox 98% on R/A; em 17:37 BP 117 / 73; Pulse 59; Resp 16; Pulse Ox 96% on R/A; Pain 6/10; em 18:45 BP 116 / 66; Pulse 75; Resp 18; Pulse Ox 100% on R/A; Pain 2/10; em 16:04 Body Mass Index 34.45 (115.21 kg, 182.88 cm) em ED Course: 15:43 Patient arrived in ED. sb2 15:47 Aldo Rubio NP is PHCP. pm1 15:47 Shahzad Reilly MD is Attending Physician. pm1 15:58 Alissa Uribe MD is Private Physician. sb2 16:01 Marko Sam LVN is Primary Nurse. em 16:05 Arm band placed on. em 16:07 Patient has correct armband on for positive identification. Placed in gown. Bed in low em position. Call light in reach. Side rails up X2. Adult w/ patient. 16:07 No provider procedures requiring assistance completed. Inserted saline lock: 20 gauge em in right antecubital area, using aseptic technique. Blood collected. 16:10 CT Head Brain wo Cont In Process Unspecified. EDMS 16:46 Triage completed. aa5 18:21 Alissa Uribe MD is Referral Physician. pm1 18:56 IV discontinued, intact, bleeding controlled, No redness/swelling at site. Pressure em dressing applied. Administered Medications: 16:21 Drug: Zofran 4 mg Route: IVP; Site: right antecubital; ae1 17:21 Follow up: Response: No adverse reaction em 17:18 Drug: Benadryl 12.5 mg Route: IVP; Site: right antecubital; ae1 18:57 Follow up: Response: No adverse reaction; Pain is decreased em 17:22 Drug: Decadron - Dexamethasone 10 mg Route: IVP; Site: right antecubital; ae1 18:57 Follow up: Response: No adverse reaction; Pain is decreased em 17:30 Drug: Reglan 10 mg Route: IVP; Site: right antecubital; ae1 18:57 Follow up: Response: No adverse reaction; Pain is decreased em Point of Care Testing: Blood Glucose: 15:47 Blood Glucose: 90 mg/dL; ae1 Ranges: Outcome: 18:21 Discharge ordered by MD. pm1 18:56 Discharged to home ambulatory. em 18:56 Condition: good 18:56 Discharge instructions given to patient, Instructed on discharge instructions, follow up and referral plans. Demonstrated understanding of instructions, follow-up care. 18:58 Patient left the ED. em Signatures: Dispatcher [employer] Marko Smith LVN LVN em Benita Davies RN RN aa5 Aldo Rubio NP SUPER[employer] pm1 Andres Cedillo RN RN ae1 Rachel Dudley sb2 Corrections: (The following items were deleted from the chart) 17:23 16:07 Pain: Pain em em 18:51 16:07 Reassessment: I agree with assessment completed by Marko Sam LVN . elvis aaNu 18:56 18:45 BP 116 / 66; Pulse 18bpm; Resp 18bpm; Pulse Ox 100% RA; Pain 2/10; em em
[2017-07-19 19:07] VITALS: TEMP 97.5
[2017-07-19 19:10] VITALS: BP 116/66; O2SAT 100
== END 2017-07-19 18:58 | disposition home or self-care (01) ==
LOC: ER 15:39
DX: R51 Headache (principal); I10 Essential (primary) hypertension; E78.00 Pure hypercholesterolemia, unspecified; J44.9 Chronic obstructive pulmonary disease, unspecified; Z88.6 Allergy status to analgesic agent; Z88.0 Allergy status to penicillin; Z88.2 Allergy status to sulfonamides; Z88.7 Allergy status to serum and vaccine
CPT/HCPCS: 70450; 82962; 96374; 96375; 99284; J1100; J2405; J2765

== ENCOUNTER 2020-06-13 14:41 | Emergency (ER) | payer SELFPAY ==
--- OUTSIDE RECORDS SUMMARY | 2020-06-13 14:44 | XMS REPORT | Continuity of Care Document ---
:1945 Author Organization [facility] t Address 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, stenosis, 8-08 Meth jane lumbar lumbar 00:00: st region region 00 with with neurogenic neurogenic claudicati claudicati on on Lumbar Lumbar Disease Active [place] stenosis stenosis 1-16 Method i with with 00:00: st neurogenic neurogenic 00 claudicati claudicati on on Allergies, Adverse Reactions, Alerts Allergy Allergy Status Severity Reaction(s) Onset Inactive Treating Comm ents Source Name Type Date Date Clinician Aspirin Propensi Active [place] ty to 1-15 Methodi adverse 00:00: st reaction 00 s to drug Penicill Propensi Active Ancato n amine ty to 1-15 Methodi adverse 00:00: st reaction 00 s to drug Sulfur Propensi Active [place] ty to 1-15 Methodi adverse 00:00: st reaction 00 s to drug Tetanus Propensi Active [place] Vaccines ty to 1-15 Methodi And adverse 00:00: st Toxoid reaction 00 s to drug penicill Adverse Active Info Not [facility] Tetanus Adverse Active swelling [facility] Reaction [facility] Clinics Low-Dose Adverse Active hives [facility] Aspirin Reaction [facility] Sulfa Adverse Active Info Not [facility] Reaction [facility] Family History Family Member Diagnosis Comments Start Date Stop Date Source Other Diabetes [place] Method ist Other Heart disease [place] Met hodist Other Hypertension [place] Meth odist Other Rheum arthritis [place] M ethodist Other Cancer [place] Method ist Social History Social Habit Start Date Stop Date Quantity Comments Source History of tobacco Current smoker [place] Religious use History [facility] Meth odist Alcohol Frequency History [facility] Meth odist Alcohol Binge Cigarettes smoked 2018-09-29 2018-09-29 [place] [facility] current (pack per 00:00:00 00:00:00 day) - Reported Cigarette 2018-09-29 2018-09-29 [place] Method ist pack-years 00:00:00 00:00:00 Tobacco use and 2018-09-29 2018-09-29 Never used Tal M ethodist exposure 00:00:00 00:00:00 Alcohol intake 2018-09-29 2018-09-29 Current drinker [place] [facility] 00:00:00 00:00:00 of alcohol (finding) Alcohol Comment 2018-09-15 2018-09-15 rarely Tal Kraft ethodist 00:00:00 00:00:00 History SDOH 2018-03-05 2018-03-05 2 [place] Meth odist Alcohol Std Drinks 00:00:00 00:00:00 Sex [birth year] Tal M ethodist 00:00:00 00:00:00 Smoking Status Start Date Stop Date Source Former smoker 2018-09-29 00:00:00 2018-09-29 00:00:00 [place] [facility] Medications Ordered Filled Start Stop Current Ordering Indication Dosage Frequency Signature Comments Components Source Medication Medication Date Date Medication? Clinician (SIG) Name Name Montelukast Montelukast Yes Na Uribe [address] [facility] Sodium Sodium 9-15 [facility] 00[facility] 00 l [facility] Ipratropium Ipratropium 2019-2020- No Na Uribe [address] [facility] Cartwright [place] 9-15 03-13 in each [facility] 00:00: 00:00 nostril [facility] 00 :00 [facility] lisinopril 2019-0 Yes 20mg QD Take 20 mg [place] (PRINIVIL,Z 8-11 by mouth Meth jane ESTRIL) 20 16:08: daily. st mg tablet 21 pravastatin 2019-0 Yes 40mg QD Take 40 mg [place] (PRAVACHOL) 8-11 by mouth Meth jane 40 MG 16:08: daily. st tablet 21 DULoxetine 2019- Yes 30mg QD Take 30 mg [place] (CYMBALTA) 8-11 by mouth Metho di 30 MG 16:08: daily. st capsule 21 folic 2019-0 Yes Take by [place] acid/multiv 8-11 mouth. Method i it-min/lute 16:08: st in (CENTRUM 21 SILVER ORAL) omega-3s/dh 2019-0 Yes Take by [place] a/epa/fish 8-11 mouth. Methodi oil (OMEGA 16:08: st 3 ORAL) 21 coenzyme 2019-0 Yes 200mg QD Take 200 [place] Q10 200 mg 8-11 mg by [facility] capsule 16:08: mouth st 21 daily. TURMERIC 2019-0 Yes 1500mg Take 1,500 [place] ORAL 8-11 mg by Methodi 16:08: mouth. st 21 gabapentin 2019-0 Yes 300mg [id number] Take 300 [place] (NEURONTIN) 8-11 [id number] mg by Swapnil escamillaodi 300 mg 16:08: 3D mouth 3 st capsule 21 (three) times a day. fluticasone 2019-0 Yes into each [place] propionate 8-11 nostril. Metho di (FLONASE 16:08: st NASL) 21 cetirizine 2019-0 Yes Take by [place] HCl (ZYRTEC 8-11 mouth. Method i ORAL) 16:08: st 21 Duloxetine Duloxetine Yes Na Uribe TAKE ONE [facility] HCl HCl CAPSULE BY [facility] AT [facility] BEDTIME [facility] Claritin Claritin Yes Na Uribe [address] [facility] Gabapentin Gabapentin Yes Na Uribe [address] [facility] Pravastatin Pravastatin Yes Na Uribe TAKE ONE [facility] Sodium Sodium TABLET BY [facility]TH ONCE [facility] DAILY AT l BEDTIME Outpati ent Clinics Lisinopril Lisinopril Yes Na Uribe Take [address] [facility] tablet by [facility] - mouth once [facility] daily l Outpat[facility] ent Clinics Procedures Procedure Date / Time Performed Performing Clinician Sourc e CT SPINE EXTERNAL STUDY 2019-10-06 11:49:00 Agustin Hanson Religious Plan of Care Planned Activity Planned Date Details Comments Source Future Scheduled 2020-09-18 INFLUENZA VACCINE [place] [facility] Test 00:00:00 [code = INFLUENZA VACCINE] Future Scheduled 2008-07-30 65+ PNEUMOCOCCAL [place] [facility] Test 00:00:00 VACCINE (1 of 1 - PPSV23) [code = 65+ PNEUMOCOCCAL VACCINE (1 of 1 - PPSV23)] Future Scheduled 1993-07-30 SHINGLES VACCINES (#1) [facility] Religious Test 00:00:00 [code = SHINGLES VACCINES (#1)] Future Scheduled 1993-07-30 COLONOSCOPY SCREENING [place] [facility] Test 00:00:00 [code = COLONOSCOPY SCREENING] Future Scheduled 1961-07-30 Hepatitis C screening [place] [facility] Test 00:00:00 (procedure) [code = 219502590] Future Scheduled 1959 COVID-19 VACCINE (1) [place] Religious Test 00:00:00 [code = COVID-19 VACCINE (1)] Encounters Start End Encounter Admission Attending Care Care Encounter Source Date/Time Date/Time Type Type Clinicians Facility Department ID 2020-05-31 2020-05-31 Outpatient [facility] [id number] [facility] 2020-04-19 2020-04-19 Outpatient [facility] [id number] [facility] 2020-04-19 2020-04-19 Outpatient [facility] [id number] [facility] 2020-04-12 2020-04-12 Outpatient [facility] [id number] [facility] 2019-12-18 2019-12-18 Outpatient [facility] [id number] [facility] 2019-12-03 2019-12-03 Outpatient [facility] [id number] [facility] 2019-12-01 2019-12-01 Outpatient [facility] [id number] [facility] 2019-11-26 2019-11-26 Outpatient [facility] [id number] [address] [place] [address] 00:00:00 00:00:00 AGUSTIN Cui [facility] i [facility] 2019-11-03 2019-11-03 [facility] [id number] [facility] 11:00:00 11:00:00 t [employer] s - [facility]Port [facility] Medicine Medicine Outpati ent Clinics 2019-11-03 2019-11-03 [facility] [id number] 09:23:00 09:23:00 t [employer] - [facility] [facility] Medicine Medicine Outpati ent Clinics 2019-09-16 2019-09-16 [facility] [id number] 13:52:00 13:52:00 t [employer] - [facility] l Medicine Outpati ent Clinics 2019-08-03 2019-08-03 [facility] [id number] 08:04:00 08:04:00 t [employer] - [employer] [facility] l Medicine Outpati ent Clinics 2019-07-29 2019-07-29 [facility] [id number] [address] 10:00:00 10:00:00 t [employer] [facility] Medicine l Medicine Outpati ent Clinics 2019-07-29 2019-07-29 [facility] [id number] 09:00:00 09:00:00 t [employer] s - Drive [facility] Medicine Outpati ent Clinics 2019-04-07 2019-04-07 [facility] [id number] 08:41:00 08:41:00 t [employer] [facility] Medicine Outpati ent Clinics 2019-03-30 2019-03-30 [facility] [id number] 10:00:00 10:00:00 t [employer] - Drive [facility] Medicine Outpati ent Clinics 2018-12-26 2018-12-26 [facility] [id number] 10:00:00 10:00:00 t [employer] [facility] Medicine Outpati ent Clinics 2018-11-25 2018-11-25 [facility] [id number] 10[facility]20:00 10:20:00 t [employer] [facility] Medicine Outpati ent Clinics 2018-10-16 2018-10-16 [facility] [id number] 09:00:00 09:00:00 t [employer] [facility] Medicine Outpati ent Clinics 2018-08-27 2018-08-27 [facility] [id number] 11:40:00 11:40:00 t [employer] - [employer] [facility] Medicine Outpati ent Clinics 2018 2018 [facility] [id number] 10:16:00 10:16:00 t [employer] [address] [facility] Medicine Outpati ent Clinics 2018-06-19 2018-06-19 [facility] [id number] 08:28:00 08:28:00 t [employer] [facility] Medicine Outpati ent Clinics 2018-05-20 2018-05-20 [facility] [id number] 09:30:00 09:30:00 t Bone Bone and [facility] of [facility] ent Clinics 2018-04-28 2018-04-28 [facility] [id number] 16:04:00 16:04:00 t Learn with Homer [facility] Outpati ent Clinics 2018-04-10 2018-04-10 [facility] [id number] 09:30:00 09:30:00 t Learn with Homer [facility] Outpati ent Clinics 2018-04-07 2018-04-07 [facility] [id number] 14:59:00 14:59:00 t Learn with Homer [facility] Outpati ent Clinics 2017-09-26 2017-09-26 [facility] [id number] 10:00:00 10:00:00 t Bone Bone and [facility] 2017-09-05 2017-09-05 [facility] [id number] 09:00:00 09:00:00 t [employer] [facility] ent Clinics 2017-07-11 2017-07-11 [facility] [id number] 11:15:00 11:15:00 t [employer] [facility] Outpati ent Clinics 2017-07-01 2017-07-01 [facility] [id number] 11:15:00 11:15:00 t Urgent Urgent Care L [facility] Clinics 2017-06-06 2017-06-06 [facility] [id number] 08:45:00 08:45:00 t Learn with [facility] ent Clinics Results Test Description Test Time Test Comments Results Result Sour e Comments CT Spine External 2019-11-26 This exam was not [place] Study 16:26:33 acquired at a Religious Religious facility and has not been interpreted by a Religious Provider. The exam was imported into our imaging system.
--- NOTE | 2020-06-13 17:59 | ER ---
Nurse's Notes [facility] Name: Terrence Monroy Age: 74 yrs Sex: Male : 1945 Arrival Date: 06/13/2020 Time: 14:43 Bed Waiting Private MD: Alissa Uribe Diagnosis: Presentation: 06/13 14:53 Chief complaint: Patient states: L hand cat bite, L arm cat scratch, happened yesterday ll1 morning by a feral cat. No fever or pain. Coronavirus screen: Client denies travel out of the [place] in the last 14 days. At this time, the client does not indicate any symptoms associated with coronavirus-19. Ebola Screen: Patient denies travel to an Ebola-affected area in the 21 days before illness onset. Initial Sepsis Screen: Does the patient meet any 2 criteria? No. Patient's initial sepsis screen is negative. Does the patient have a suspected source of infection? Yes: Skin breakdown/wound. Risk Assessment: Do you want to hurt yourself or someone else? Patient reports no desire to harm self or others. Onset of symptoms was June 12, 2020. 14:53 Method Of Arrival: Ambulatory ll1 14:53 Acuity: CARMEN 4 ll1 Historical: - Allergies: 14:55 PENICILLINS; ll1 14:55 Aspirin; ll1 14:55 Sulfa (Sulfonamide Antibiotics); ll1 14:55 Tetanus-Diphtheria Toxoids-Td; ll1 - PMHx: 14:55 CHF; COPD; High Cholesterol; Hypertension; ll1 - PSHx: 14:55 joint sx; ll1 - Immunization history:: Client reports receiving the 2nd dose of the Covid vaccine, Last tetanus immunization: allergic. Pneumococcal vaccine is up to date, Flu vaccine is up to date. - Social history:: Smoking status: Patient denies any tobacco usage or history of. Vital Signs: 14:53 BP 135 / 78; Pulse 74; Resp 16; Temp 97.5; Pulse Ox 95% ; Weight 104.33 kg; Height 6 ll1 ft. 0 in. (182.88 cm); Pain 0/10; 14:53 Body Mass Index 31.19 (104.33 kg, 182.88 cm) ll1 ED Course: 14:43 Patient arrived in ED. am2 14:43 Alissa Uribe MD is Private Physician. am2 14:55 Triage completed. ll1 14:56 Arm band placed on. ll1 17:10 [facility] cp 17:10 Jevon Elizabeth MD is Attending Physician. cp 17:30 Patient's name was called from ER lobby. No response. aa5 Administered Medications: No medications were administered Outcome: 17:59 Patient left the ED. ll1 Signatures: Benita Davies RN RN aa5 Jevon Tilley PA PA Asha Jarquin am2 Cindy Harris RN RN ll1
[2020-06-13 18:12] VITALS: BP 135/78; TEMP 97.5; O2SAT 95
== END 2020-06-13 17:59 | disposition left against medical advice (07) ==
LOC: ER 14:41
DX: Z53.21 Procedure and treatment not carried out due to patient leaving prior to being seen by health care provider (principal)
CPT/HCPCS: 99281

== ENCOUNTER 2022-03-26 10:29 | Emergency (ER) | payer OTHER ==
--- OUTSIDE RECORDS SUMMARY | 2022-03-26 10:39 | XMS REPORT | Continuity of Care Document ---
:1945 Author Organization [facility] t Address [address] [place] [address] Care Team Providers Name Role Phone Alissa Uribe DO Primary Care Physician Alissa Uribe Attending Clinician Unavailable David Gómez Attending Clinician CHRIS BALDWIN Attending Clinician Unavailable Alen-Mbayo_A_AH Attending Clinician Unavailable Alen-Mbayo_A_AH Admitting Clinician Unavailable Payers Payer Name Policy Type Policy Number Effective Date Expiration Date S [place] [employer]NA MEDICARE C1 [id number] 2020 [facility] 00:00:00 - [facility] HU[employer]NA MEDICARE C1 [id number] 2020 Common Sp evelin 00:00:00 - [facility] [employer] OF [place] [id number] 2019 - [employer] 00:00:00 (MEDICARE REPLACEMENT/ADV ANTAGE - HMO) Problems Condition Condition Condition Status Onset Resolution Last Treating Co mments Source Name Details Category Date Date Treatment Clinician Date 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, stenosis, 8-08 st lumbar lumbar 00:00: Hospita region region 00 l with with neurogenic neurogenic claudicati claudicati on on Lumbar Lumbar Disease Active [facility] stenosis stenosis 1-16 st with with 00:00: Hospita neurogenic neurogenic 00 l claudicati claudicati on on Dizziness Dizziness Problem Active 2022-01-06 Memoria and and 10-26 13:04:20 l giddiness giddiness 00:00: Herm sergey (finding) (finding) 00 Active 10/26/2016 Problem 01/06/2022 [facility] Congenital Congenita Problem Active 2014-022022-01-06 Memoria vascular l vascular 0-30 13:04:20 l malformati malformati 00:00: He rmann on on 00 (disorder) (disorder) Active 12/17/2014 Problem 01/06/2022 [facility] Essential Essential Problem Active 2014-022022-01-06 Memoria hypertensi hypertensi 0-30 13:04:20 l on on 00:00: Christofer (disorder) (disorder) 00 Active 12/17/2014 Problem 01/06/2022 [facility] Lumbosacra Lumbosacr Problem Active 2014-022022-01-06 Memoria l al 0-30 13:04:20 l spondylosi spondylosi 00:00: He rmann s without s without 00 myelopathy myelopathy (disorder) (disorder) Active 12/17/2014 Problem 01/06/2022 [facility] [id number] Acute Problem Common bronchitis Spirit , - [facility] unspecifie [facility] [id number] Primary Problem 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 itis, - [facility]I right hand [facility] [id number] Primary Problem 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 itis, left - CHI hand [facility] [id number] Chronic Problem Common sinusitis, Spirit unspecifie - [facility] d location [facility] [id number] Decreased Problem Com mon hearing of Spirit right ear [facility] [id number] Temporary Problem Com mon low Spirit platelet - [facility] count [facility] Hyperlipid Hyperlipid Problem C ommon emia emia [facility] Allergic Allergic Problem Commo n rhinitis rhinitis [facility] Lumbar Lumbar Problem Common radiculopa radiculopa Sp evelin thy thy [facility] Colonic Colonic Problem Common polyp polyp [facility] Anemia Anemia, Problem Common mild [facility] 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 Spir it on of lumbar - CHI co-occurre region [facility] with [facility] spinal neurogenic Med ical stenosis claudicati Cent er of lumbar on region [id number] Pure Problem Common hyperchole [facility] sterolemia [facility] Plantar Plantar Problem Common fasciitis fasciitis Spir it [facility] Computed Abnormal Problem Commo n tomography CT scan Spiri t result - [facility] abnormal [facility] [id number] Hospital Problem Comm on discharge [facility] follow-up [facility] [id number] Chronic Problem Common obstructiv [facility] e [facility] pulmonary [facility] unspecifie Medica l d [facility] Center type [id number] Pneumonia, Problem Com mon primary [facility] atypical [facility] [id number] Fusion of Problem Com mon spine, [facility] lumbar [facility] region [facility] [id number] Primary Problem Commo n osteoarthr Spirit itis of [facility] left hip [facility] Peripheral Peripheral Problem C ommon neuropathy neuropathy Sp evelin [facility] [id number] Seasonal Problem Comm on allergic Spirit rhinitis, - [facility] unspecifie [facility] [id number] Pain of Problem Comm on [id number] left heel [facility] Hypertensi HTN Problem Commo n on (hypertens [facility] ion) [facility] Obesity Obesity Problem Common [facility] [id number] Left sided Problem Com mon sciatica [facility] [id number] Left hip Problem Commo n pain [facility] [id number] History of Problem Co mmon colon [facility] polyps [facility] [id number] BMI Problem Common 32.0-32.9, [facility] adult [facility] Headache Headache Problem Active 2022-01-06 Memoria (finding) (finding) 13:04:20 l Active Christofer Problem 01/06/2022 [facility] 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 13:04:20 l a haemangiom Ayad n (disorder) a (disorder) Active Problem 01/06/2022 [facility] Allergies, Adverse Reactions, Alerts Allergy Allergy Status Severity Reaction(s) Onset Inactive Treating Comm ents Source Name Type Date Date Clinician Aspirin Propensi Active Methodi ty to 1-15 st adverse 00:00: Hospita reaction 00 l s to drug Penicill Propensi Active Method i amine ty to 1-15 st adverse 00:00: Hospita reaction 00 l s to drug Sulfur Propensi Active Methodi ty to 1-15 st adverse 00:00: Hospita reaction 00 l s to drug Tetanus Propensi Active Methodi Vaccines ty to 1-15 st And adverse 00:00: Hospita Toxoid reaction 00 l s to drug Penicill Penicill Active Unknown Commo n in in [facility] [id number] Drug Active hives Common allergy [facility] aspirin aspirin Active Memoria l Christofer tetanus tetanus Active Memoria toxoid toxoid l [place] Family History Family Member Diagnosis Comments Start Date Stop Date Source Other Rheum arthritis [facility] Other [facility] Social History Social Habit Start Date Stop Date Quantity Comments Source History of Tobacco [facility] Use [facility] History [facility] Frequency [facility]ita l [facility] SDOH [facility] Alcohol intake 2018-09-29 2018-09-29 Current drinker [facility] 00:00:00 00:00:00 of [facility] (finding) History SDOH 2018-09-25 2018-09-25 2 [facility] Alcohol Std Drinks 00:00:00 00:00:00 Hospit al Tobacco use and 2018-09-15 2018-09-15 Smokeless tobacco Me [facility]ist exposure 00:00:00 00:00:00 non-user Hospital Cigarettes smoked 2018-09-15 2018-09-[address] current (pack per 00:00:00 00:00:00 Hospita l day) - Reported Cigarette 2018-09-15 2018-09-15 [facility] pack-years 00:00:00 00:00:00 Hospital Alcohol Comment 2018-09-15 2018-09-15 rarely [facility] 00:00:00 [facility]:00 Hospital Sex Ass[birth year] At [birth year] [facility] 00:[facility] Smoking Status Start Date Stop Date Source Never Smoker [facility] Tobacco smoking status 2022-01-03 16:01:00 2022-01-03 16:01:00 M javier Beaulieu Medications Ordered Filled Start Stop Current Ordering Indication Dosage Frequency Signature Comments Components Source Medication Medication Date Date Medication? Clinician (SIG) Name Name Triamcinolo Triamcinolo 2021-02 No 1{appli BID Triamcinol ne ne 2-28 cation} one Acetonide Acetonide 00:00: Acetonide 0.1 % 0.1 % 00 0.1 % Triamcinolo Triamcinolo 2021-02 No 1{appli BID Triamcinol ne ne 2-28 cation} one Acetonide Acetonide 00:00: Acetonide 0.1 % 0.1 % 00 0.1 % Triamcinolo Triamcinolo 2021-02 No 1{appli BID Triamcinol ne ne 2-28 cation} one Acetonide Acetonide 00:00: Acetonide 0.1 % 0.1 % 00 0.1 % Triamcinolo Triamcinolo 2021-02 No 1{appli BID Triamcinol ne ne 2-28 cation} one Acetonide Acetonide 00:00: Acetonide 0.1 % 0.1 % 00 0.1 % gabapentin 2021-02 Yes = 2 cap, Mem oria 300 mg oral 1-16 PO, BID, # l capsule 16:43: 360 cap, 2 Herm sergey 00 Refill(s), Pharmacy: [facility], 180.34, cm, 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, Height, 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, kg, 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, Weight Iron-150 2021-02 Yes 1 tab, PO, Mem oria oral tablet 1-16 Daily, 0 l 16:25: Refill(s) Christofer 00 Triamcinolo Triamcinolo No 1{appli BID Triamcinol ne ne 9-16 cation_ one Acetonide Acetonide 00:00: to_affe Acetonide 0.1 % 0.1 % 00 cted_ar 0.1 % ea} Triamcinolo Triamcinolo No 1{appli BID Triamcinol ne ne 9-16 cation_ one Acetonide Acetonide 00:00: to_affe Acetonide 0.1 % 0.1 % 00 cted_ar 0.1 % ea} Triamcinolo Triamcinolo No 1{appli BID Triamcinol ne ne 9-16 cation_ one Acetonide Acetonide 00:00: to_affe Acetonide 0.1 % 0.1 % 00 cted_ar 0.1 % ea} Triamcinolo Triamcinolo No 1{appli BID Triamcinol ne ne 9-16 cation_ one Acetonide Acetonide 00:00: to_affe Acetonide 0.1 % 0.1 % 00 cted_ar 0.1 % ea} Triamcinolo Triamcinolo No 1{appli BID Triamcinol ne ne 9-16 cation_ one Acetonide Acetonide 00:00: to_affe Acetonide 0.1 % 0.1 % 00 cted_ar 0.1 % ea} Triamcinolo Triamcinolo No 1{appli BID Triamcinol ne ne 9-16 cation_ one Acetonide Acetonide 00:00: to_affe Acetonide 0.1 % 0.1 % 00 cted_ar 0.1 % ea} Triamcinolo Triamcinolo No 1{appli BID Triamcinol ne ne 9-16 cation_ one Acetonide Acetonide 00:00: to_affe Acetonide 0.1 % 0.1 % 00 cted_ar 0.1 % ea} Triamcinolo Triamcinolo No 1{appli BID Triamcinol ne ne 9-16 cation_ one Acetonide Acetonide 00:00: to_affe Acetonide 0.1 % 0.1 % 00 cted_ar 0.1 % ea} ferrous Yes 325 mg = 1 Roverto adryan sulfate 325 7- tab, PO, l mg oral 15:54: Daily, 0 Ayad n enteric 00 Refill(s) coated tablet non-formula Yes Vertigone, Memoria ry - Refill(s) l 15:42: 0 Christofer 00 Azithromyci Azithromyci 2021- No QD Azithromyc n 250 MG n 250 MG 04-25 03-13 in 250 MG 00:00: 00:00 00 :00 gabapentin 0 Yes 600 mg = 2 M emoria 300 MG Oral 4-16 cap, PO, l Capsule 19:46: TID, # 540 Herm sergey 00 cap, 3 Refill(s), Pharmacy: [facility], 154.94, cm, 11/12/19 10:22:00 CDT, Height, 107.727, kg, 06/02/20 10:55:00 CDT, Weight pravastatin Yes 40 mg = 1 M emoria 40 mg oral 4-15 tab, PO, l tablet 15:59: Bedtime, # Chari nn 00 30 tab, 0 Refill(s) gabapentin Yes 600 mg = 2 M emoria 300 MG Oral 9-30 cap, PO, l Capsule 23:14: TID, # 540 Herm sergey 00 cap, 2 Refill(s), Pharmacy: [facility], 154.94, cm, 11/12/19 10:22:00 CDT, Height, 105.455, kg, 11/12/19 10:22:00 CDT, Weight gabapentin Yes 300 mg = 1 M emoria 300 MG Oral 9-24 cap, PO, l Capsule 15:37: TID, # 270 Herm sergey 00 cap, 3 Refill(s), Pharmacy: [facility], 154.94, cm, 11/12/19 10:22:00 CDT, Height, 105.455, kg, 11/12/19 10:22:00 CDT, Weight Montelukast Montelukast 2019-0 Yes Na Uribe 1 tablet Common Sodium Sodium 9-15 Spirit 00:00: - [facility] 00 [facility] Montelukast Montelukast 2019-0 No 1{table Montelukas Sodium 10 Sodium 10 9-15 t} t Sodium MG MG 00:00: 10 MG 00 Montelukast Montelukast 2019-0 No 1{table Montelukas Sodium 10 Sodium 10 9-15 t} t Sodium MG MG 00:00: 10 MG 00 Montelukast Montelukast 2019-0 No 1{table Montelukas Sodium 10 Sodium 10 9-15 t} t Sodium MG MG 00:00: 10 MG 00 Montelukast Montelukast 2020-0 No 1{table Montelukas Sodium 10 Sodium 10 9-15 t} t Sodium MG MG 00:00: 10 MG 00 Montelukast Montelukast 2020-0 No 1{table Montelukas Sodium 10 Sodium 10 9-15 t} t Sodium MG MG 00:00: 10 MG 00 Montelukast Montelukast 2020-0 No 1{table Montelukas Sodium 10 Sodium 10 9-15 t} t Sodium MG MG 00:00: 10 MG 00 Montelukast Montelukast 2020-0 No 1{table Montelukas Sodium 10 Sodium 10 9-15 t} t Sodium MG MG 00:00: 10 MG 00 Montelukast Montelukast 2020-0 No 1{table Montelukas Sodium 10 Sodium 10 9-15 t} t Sodium MG MG 00:00: 10 MG 00 Montelukast Montelukast 2020-0 No 1{table Montelukas Sodium 10 Sodium 10 9-15 t} t Sodium MG MG 00:00: 10 MG 00 Montelukast Montelukast 2020-0 No 1{table Montelukas Sodium 10 Sodium 10 9-15 t} t Sodium MG MG 00:00: 10 MG 00 Montelukast Montelukast 2020-0 No 1{table Montelukas Sodium 10 Sodium 10 9-15 t} t Sodium MG MG 00:00: 10 MG 00 Montelukast Montelukast 2020-0 No 1{table Montelukas Sodium 10 Sodium 10 9-15 t} t Sodium MG MG 00:00: 10 MG 00 Montelukast Montelukast 2020-0 No 1{table Montelukas Sodium 10 Sodium 10 9-15 t} t Sodium MG MG 00:00: 10 MG 00 Montelukast Montelukast 2020-0 No 1{table Montelukas Sodium 10 Sodium 10 9-15 t} t Sodium MG MG 00:00: 10 MG 00 Montelukast Montelukast 2020-0 No 1{table Montelukas Sodium 10 Sodium 10 9-15 t} t Sodium MG MG 00:00: 10 MG 00 Montelukast Montelukast 2020-0 No 1{table Montelukas Sodium 10 Sodium 10 9-15 t} t Sodium MG MG 00:00: 10 MG 00 Montelukast Montelukast No 1{table Montelukas Sodium 10 Sodium 10 9-15 t} t Sodium MG MG 00:00: 10 MG 00 Montelukast Montelukast 2019-0 No 1{table Montelukas Sodium 10 Sodium 10 9-15 t} t Sodium MG MG 00:00: 10 MG 00 Montelukast Montelukast No 1{table Montelukas Sodium 10 Sodium 10 9-15 t} t Sodium MG MG 00:00: 10 MG 00 Ipratropium Ipratropium 2020- No Na Uribe 2 sprays Common [place] 11-02 in each Spiri t 00:00: 00:00 nostril - CHI 00 :00 [facility] gabapentin Yes 600 mg = 2 M emoria 300 MG Oral 3-24 cap, PO, l Capsule 16:30: TID, # 180 Herm sergey 00 cap, 4 Refill(s), Pharmacy: [facility] gabapentin Yes = 1 cap, Mem oria 300 MG Oral 9-23 PO, BID, # l Capsule 16:20: 60 cap, 4 Chari nn 49 Refill(s), Pharmacy: [facility] lisinopril Yes 20mg QD Take 20 mg M ethodi (PRINIVIL,Z 8-[address] ESTRIL) 20 16:08: daily. Hospi ta mg tablet 21 l pravastatin Yes 40mg QD Take 40 mg Methodi (PRAVACHOL) 8-[address] 40 MG 16:08: daily. Hospita tablet 21 l DULoxetine Yes 30mg QD Take 30 mg M ethodi (CYMBALTA) 8-[address] 30 MG 16:08: daily. Hospita capsule 21 l folic 0 Yes Take by Methodi acid/multiv 8-[address] it-min/lute 16:08: Hospit a in (CENTRUM 21 l SILVER ORAL) omega-3s/dh Yes Take by Met hodi a/epa/fish [address] oil (OMEGA 16:08: Hospita 3 ORAL) 21 l coenzyme 2019-0 Yes 200mg QD Take 200 Meth jane Q10 200 mg 8-[address] capsule 16:08: mouth Hospita 21 daily. l TURMERIC 2019-0 Yes 1500mg Take 1,500 M ethodi ORAL 8-[address] 16:08: mouth. Hospita 21 l gabapentin 2019-0 Yes 300mg [id number] Take 300 Methodi (NEURONTIN) 8-11 [id number] mg by s t 300 mg 16:08: 3D mouth 3 Hospita capsule 21 (three) l times a day. fluticasone 2019-0 Yes into each M ethodi propionate 8-[address] (FLONASE 16:08: Hospita NASL) 21 l cetirizine 2019-0 Yes Take by Meth jane HCl (ZYRTEC 8-[address] ORAL) 16:08: Hospita 21 l lisinopril 2019-0 Yes 20mg QD Take 20 mg M ethodi (PRINIVIL,Z 8-[address] ESTRIL) 20 16:08: daily. Hospi ta mg tablet 21 l pravastatin 2019-0 Yes 40mg QD Take 40 mg Methodi (PRAVACHOL) 8-[address] 40 MG 16:08: daily. Hospita tablet 21 l DULoxetine 2019-0 Yes 30mg QD Take 30 mg M ethodi (CYMBALTA) 8-[address] 30 MG 16:08: daily. Hospita capsule 21 l folic 2019-0 Yes Take by Methodi acid/multiv 8-[address] it-min/lute 16:08: Hospit a in (CENTRUM 21 l SILVER ORAL) omega-3s/dh 2019-0 Yes Take by Met hodi a/epa/fish 8-[address] oil (OMEGA 16:08: Hospita 3 ORAL) 21 l coenzyme 2019-0 Yes 200mg QD Take 200 Meth jane Q10 200 mg 8-[address] capsule 16:08: mouth Hospita 21 daily. l TURMERIC 2019-0 Yes 1500mg Take 1,500 M ethodi ORAL 8-[address] 16:08: mouth. Hospita 21 l gabapentin 2019-0 Yes 300mg Q.[id number] Take 300 Methodi (NEURONTIN) 8-11 [id number] mg by s t 300 mg 16:08: 3D mouth 3 Hospita capsule 21 (three) l times a day. fluticasone Yes into each M ethodi propionate 8-[address] (FLONASE 16:08: Hospita NASL) 21 l cetirizine Yes Take by Meth jane HCl (ZYRTEC 8-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, Pharmacy: [facility] gabapentin 2017-02 No 300 mg = 1 M emoria 300 MG Oral 0-15 cap, PO, l Capsule 18:36: Bedtime, # Herm sergey 00 30 cap, 3 Refill(s), Pharmacy: [facility] lisinopril 2017-02 Yes 20 mg = 1 Me moria 20 mg oral 0-15 tab, PO, l tablet 18:34: Daily, # Puposky 00 30 tab, 0 Refill(s) Kenalog Kenalog No 40mg Common (Triamcinol (Triamcinol 2-08 S pirit one) one) 00:00: - [facility]I 00 [facility] Kenalog Kenalog No 40mg Common (Triamcinol (Triamcinol 2-08 S pirit one) one) 00:00: - CHI [facility] Kenalog Kenalog No 40mg Common (Triamcinol (Triamcinol 2-08 S pirit one) one) 00:00: - CHI [facility] Kenalog Kenalog 2018-0 No 40mg Common (Triamcinol (Triamcinol 2-08 S pirit one) one) 00:00: - CHI 00 [facility] Kenalog Kenalog 2018-0 No 40mg Common (Triamcinol (Triamcinol 2-08 S pirit one) one) 00:00: - CHI 00 [facility] Kenalog Kenalog 2018-0 No 40mg Common (Triamcinol (Triamcinol 2-08 S pirit one) one) 00:00: - CHI 00 [facility] Kenalog Kenalog 2018-0 No 40mg Common (Triamcinol (Triamcinol 2-08 S pirit one) one) 00:00: - CHI 00 [facility] Kenalog Kenalog 2018-0 No 40mg Common (Triamcinol (Triamcinol 2-08 S pirit one) one) 00:00: - CHI 00 [facility] Kenalog Kenalog 2018-0 No 40mg Common (Triamcinol (Triamcinol 2-08 S pirit one) one) 00:00: - CHI 00 [facility] Kenalog Kenalog 2018-0 No 40mg Common (Triamcinol (Triamcinol 2-08 S pirit one) one) 00:00: - CHI 00 [facility] Kenalog Kenalog 2018-0 No 40mg Common (Triamcinol (Triamcinol 2-08 S pirit one) one) 00:00: - CHI 00 [facility] Kenalog Kenalog 2018-0 No 40mg Common (Triamcinol (Triamcinol 2-08 S pirit one) one) 00:00: - CHI 00 [facility] Kenalog Kenalog 2018-0 No 40mg Common (Triamcinol (Triamcinol 2-08 S pirit one) one) 00:00: - CHI 00 [facility] Kenalog Kenalog 2018-0 No 40mg Common (Triamcinol (Triamcinol 2-08 S pirit one) one) 00:00: - CHI 00 [facility] Kenalog Kenalog 2018-0 No 40mg Common (Triamcinol (Triamcinol 2-08 S pirit one) one) 00:00: - CHI 00 [facility] Duloxetine Duloxetine Yes Na Uribe TAKE ONE Common HCl HCl CAPSULE BY Spirit MOUTH AT - CHI BEDTIME [facility] Claritin Claritin Yes Na Uribe 1 capsule Common Spirit CHI [facility] Gabapentin Gabapentin Yes Na Uribe 1 capsule Common Spirit - [facility] Pravastatin Pravastatin Yes Na Uribe TAKE ONE Common Sodium Sodium TABLET BY Spirit MOUTH ONCE - CHI DAILY AT [facility] Lisinopril Lisinopril Yes Na Uribe Take 1 Common tablet by Spirit mouth once - CHI daily [facility] Pravastatin Pravastatin No Pravastati Sodium 40MG Sodium 40MG n Sodium 40MG DULoxetine DULoxetine No DULoxetine HCl 30 MG HCl 30 MG HCl 30 MG Claritin 10 Claritin 10 No 1{capsu QD Claritin MG MG le} 10 MG Gabapentin Gabapentin No 2{capsu TID Gabapentin 300 MG 300 MG le} 300 MG Pravastatin Pravastatin No Pravastati Sodium 40 Sodium 40 n Sodium MG MG 40 MG Lisinopril Lisinopril No Lisinopril 20MG 20MG 20MG Lisinopril Lisinopril No Lisinopril 20 MG 20 MG 20 MG DULoxetine DULoxetine No DULoxetine HCl 30MG HCl 30MG HCl 30MG Pravastatin Pravastatin No Pravastati Sodium 40MG Sodium 40MG n Sodium 40MG DULoxetine DULoxetine No DULoxetine HCl 30 MG HCl 30 MG HCl 30 MG Claritin 10 Claritin 10 No 1{capsu QD Claritin MG MG le} 10 MG Gabapentin Gabapentin No 2{capsu TID Gabapentin 300 MG 300 MG le} 300 MG Pravastatin Pravastatin No Pravastati Sodium 40 Sodium 40 n Sodium MG MG 40 MG Lisinopril Lisinopril No Lisinopril 20MG 20MG 20MG Lisinopril Lisinopril No Lisinopril 20 MG 20 MG 20 MG DULoxetine DULoxetine No DULoxetine HCl 30MG HCl 30MG HCl 30MG Pravastatin Pravastatin No Pravastati Sodium 40MG Sodium 40MG n Sodium 40MG DULoxetine DULoxetine No DULoxetine HCl 30 MG HCl 30 MG HCl 30 MG Claritin 10 Claritin 10 No 1{capsu QD Claritin MG MG le} 10 MG Gabapentin Gabapentin No 2{capsu TID Gabapentin 300 MG 300 MG le} 300 MG Pravastatin Pravastatin No Pravastati Sodium 40 Sodium 40 n Sodium MG MG 40 MG Lisinopril Lisinopril No Lisinopril 20MG 20MG 20MG Lisinopril Lisinopril No Lisinopril 20 MG 20 MG 20 MG DULoxetine DULoxetine No DULoxetine HCl 30MG HCl 30MG HCl 30MG Lisinopril Lisinopril No Lisinopril 20 MG 20 MG 20 MG Pravastatin Pravastatin No Pravastati Sodium 40MG Sodium 40MG n Sodium 40MG Lisinopril Lisinopril No Lisinopril 20MG 20MG 20MG Claritin 10 Claritin 10 No 1{capsu QD Claritin MG MG le} 10 MG Gabapentin Gabapentin No 2{capsu TID Gabapentin 300 MG 300 MG le} 300 MG Pravastatin Pravastatin No Pravastati Sodium 40 Sodium 40 n Sodium MG MG 40 MG DULoxetine DULoxetine No DULoxetine HCl 30 MG HCl 30 MG HCl 30 MG DULoxetine DULoxetine No DULoxetine HCl 30MG HCl 30MG HCl 30MG Lisinopril Lisinopril No Lisinopril 20 MG 20 MG 20 MG Lisinopril Lisinopril No Lisinopril 20MG 20MG 20MG DULoxetine DULoxetine No DULoxetine HCl 30MG HCl 30MG HCl 30MG Pravastatin Pravastatin No Pravastati Sodium 40MG Sodium 40MG n Sodium 40MG Pravastatin Pravastatin No Pravastati Sodium 40 Sodium 40 n Sodium MG MG 40 MG DULoxetine DULoxetine No DULoxetine HCl 30 MG HCl 30 MG HCl 30 MG Claritin 10 Claritin 10 No 1{capsu QD Claritin MG MG le} 10 MG Gabapentin Gabapentin No 2{capsu TID Gabapentin 300 MG 300 MG le} 300 MG DULoxetine DULoxetine No 1{capsu QD DULoxetine HCl 30 MG HCl 30 MG le} HCl 30 MG Lisinopril Lisinopril No Lisinopril 20MG 20MG 20MG DULoxetine DULoxetine No DULoxetine HCl 30MG HCl 30MG HCl 30MG Pravastatin Pravastatin No Pravastati Sodium 40MG Sodium 40MG n Sodium 40MG Pravastatin Pravastatin No Pravastati Sodium 40 Sodium 40 n Sodium MG MG 40 MG Lisinopril Lisinopril No Lisinopril 20 MG 20 MG 20 MG Claritin 10 Claritin 10 No 1{capsu QD Claritin MG MG le} 10 MG Gabapentin Gabapentin No 2{capsu TID Gabapentin 300 MG 300 MG le} 300 MG Pravastatin Pravastatin No Pravastati Sodium 40 Sodium 40 n Sodium MG MG 40 MG Lisinopril Lisinopril No Lisinopril 20 MG 20 MG 20 MG Claritin 10 Claritin 10 No 1{capsu QD Claritin MG MG le} 10 MG Gabapentin Gabapentin No 2{capsu TID Gabapentin 300 MG 300 MG le} 300 MG DULoxetine DULoxetine No DULoxetine HCl 30MG HCl 30MG HCl 30MG DULoxetine DULoxetine No 1{capsu QD DULoxetine HCl 30 MG HCl 30 MG le} HCl 30 MG Pravastatin Pravastatin No Pravastati Sodium 40 Sodium 40 n Sodium MG MG 40 MG Lisinopril Lisinopril No Lisinopril 20 MG 20 MG 20 MG Claritin 10 Claritin 10 No 1{capsu QD Claritin MG MG le} 10 MG Gabapentin Gabapentin No 2{capsu TID Gabapentin 300 MG 300 MG le} 300 MG DULoxetine DULoxetine No DULoxetine HCl 30MG HCl 30MG HCl 30MG DULoxetine DULoxetine No 1{capsu QD DULoxetine HCl 30 MG HCl 30 MG le} HCl 30 MG Pravastatin Pravastatin No Pravastati Sodium 40 Sodium 40 n Sodium MG MG 40 MG Lisinopril Lisinopril No Lisinopril 20 MG 20 MG 20 MG Claritin 10 Claritin 10 No 1{capsu QD Claritin MG MG le} 10 MG Gabapentin Gabapentin No 2{capsu TID Gabapentin 300 MG 300 MG le} 300 MG DULoxetine DULoxetine No DULoxetine HCl 30MG HCl 30MG HCl 30MG DULoxetine DULoxetine No 1{capsu QD DULoxetine HCl 30 MG HCl 30 MG le} HCl 30 MG Pravastatin Pravastatin No Pravastati Sodium 40 Sodium 40 n Sodium MG MG 40 MG Lisinopril Lisinopril No Lisinopril 20 MG 20 MG 20 MG Claritin 10 Claritin 10 No 1{capsu QD Claritin MG MG le} 10 MG Gabapentin Gabapentin No 2{capsu TID Gabapentin 300 MG 300 MG le} 300 MG DULoxetine DULoxetine No DULoxetine HCl 30MG HCl 30MG HCl 30MG DULoxetine DULoxetine No 1{capsu QD DULoxetine HCl 30 MG HCl 30 MG le} HCl 30 MG DULoxetine DULoxetine No DULoxetine HCl 30 MG HCl 30 MG HCl 30 MG Gabapentin Gabapentin No 2{capsu TID Gabapentin 300 MG 300 MG le} 300 MG Pravastatin Pravastatin No Pravastati Sodium 40 Sodium 40 n Sodium MG MG 40 MG Lisinopril Lisinopril No Lisinopril 20 MG 20 MG 20 MG Claritin 10 Claritin 10 No 1{capsu QD Claritin MG MG le} 10 MG Pravastatin Pravastatin No Pravastati Sodium 40 Sodium 40 n Sodium MG MG 40 MG Gabapentin Gabapentin No 2{capsu TID Gabapentin 300 MG 300 MG le} 300 MG Lisinopril Lisinopril No Lisinopril 20MG 20MG 20MG DULoxetine DULoxetine No DULoxetine HCl 30 MG HCl 30 MG HCl 30 MG Lisinopril Lisinopril No Lisinopril 20 MG 20 MG 20 MG Pravastatin Pravastatin No Pravastati Sodium 40MG Sodium 40MG n Sodium 40MG DULoxetine DULoxetine No DULoxetine HCl 30MG HCl 30MG HCl 30MG Claritin 10 Claritin 10 No 1{capsu QD Claritin MG MG le} 10 MG Claritin 10 Claritin 10 No 1{capsu QD Claritin MG MG le} 10 MG Lisinopril Lisinopril No Lisinopril 20 MG 20 MG 20 MG Lisinopril Lisinopril No Lisinopril 20MG 20MG 20MG DULoxetine DULoxetine No DULoxetine HCl 30MG HCl 30MG HCl 30MG Pravastatin Pravastatin No Pravastati Sodium 40MG Sodium 40MG n Sodium 40MG DULoxetine DULoxetine No DULoxetine HCl 30 MG HCl 30 MG HCl 30 MG Pravastatin Pravastatin No Pravastati Sodium 40 Sodium 40 n Sodium MG MG 40 MG Gabapentin Gabapentin No 2{capsu TID Gabapentin 300 MG 300 MG le} 300 MG Claritin 10 Claritin 10 No 1{capsu QD Claritin MG MG le} 10 MG Lisinopril Lisinopril No Lisinopril 20MG 20MG 20MG Pravastatin Pravastatin No Pravastati Sodium 40 Sodium 40 n Sodium MG MG 40 MG DULoxetine DULoxetine No DULoxetine HCl 30 MG HCl 30 MG HCl 30 MG Pravastatin Pravastatin No Pravastati Sodium 40MG Sodium 40MG n Sodium 40MG Lisinopril Lisinopril No Lisinopril 20 MG 20 MG 20 MG Gabapentin Gabapentin No 2{capsu TID Gabapentin 300 MG 300 MG le} 300 MG DULoxetine DULoxetine No DULoxetine HCl 30MG HCl 30MG HCl 30MG Gabapentin Gabapentin No 2{capsu TID Gabapentin 300 MG 300 MG le} 300 MG Claritin 10 Claritin 10 No 1{capsu QD Claritin MG MG le} 10 MG Mupirocin 2 Mupirocin 2 No 1{appli BID Mupirocin % % cation} 2 % Pravastatin Pravastatin No Pravastati Sodium 40MG Sodium 40MG n Sodium 40MG DULoxetine DULoxetine No DULoxetine HCl 30MG HCl 30MG HCl 30MG Lisinopril Lisinopril No Lisinopril 20MG 20MG 20MG Gabapentin Gabapentin No 2{capsu TID Gabapentin 300 MG 300 MG le} 300 MG Claritin 10 Claritin 10 No 1{capsu QD Claritin MG MG le} 10 MG Mupirocin 2 Mupirocin 2 No 1{appli BID Mupirocin % % cation} 2 % Pravastatin Pravastatin No Pravastati Sodium 40MG Sodium 40MG n Sodium 40MG DULoxetine DULoxetine No DULoxetine HCl 30MG HCl 30MG HCl 30MG Lisinopril Lisinopril No Lisinopril 20MG 20MG 20MG Gabapentin Gabapentin No 2{capsu TID Gabapentin 300 MG 300 MG le} 300 MG Claritin 10 Claritin 10 No 1{capsu QD Claritin MG MG le} 10 MG Mupirocin 2 Mupirocin 2 No 1{appli BID Mupirocin % % cation} 2 % Pravastatin Pravastatin No Pravastati Sodium 40MG Sodium 40MG n Sodium 40MG DULoxetine DULoxetine No DULoxetine HCl 30MG HCl 30MG HCl 30MG Lisinopril Lisinopril No Lisinopril 20MG 20MG 20MG Gabapentin Gabapentin No 2{capsu TID Gabapentin 300 MG 300 MG le} 300 MG Claritin 10 Claritin 10 No 1{capsu QD Claritin MG MG le} 10 MG Mupirocin 2 Mupirocin 2 No 1{appli BID Mupirocin % % cation} 2 % Pravastatin Pravastatin No Pravastati Sodium 40MG Sodium 40MG n Sodium 40MG DULoxetine DULoxetine No DULoxetine HCl 30MG HCl 30MG HCl 30MG Lisinopril Lisinopril No Lisinopril 20MG 20MG 20MG Pravastatin Pravastatin No Pravastati Sodium 40MG Sodium 40MG n Sodium 40MG DULoxetine DULoxetine No DULoxetine HCl 30 MG HCl 30 MG HCl 30 MG Claritin 10 Claritin 10 No 1{capsu QD Claritin MG MG le} 10 MG Gabapentin Gabapentin No 2{capsu TID Gabapentin 300 MG 300 MG le} 300 MG Pravastatin Pravastatin No Pravastati Sodium 40 Sodium 40 n Sodium MG MG 40 MG Lisinopril Lisinopril No Lisinopril 20MG 20MG 20MG Lisinopril Lisinopril No Lisinopril 20 MG 20 MG 20 MG DULoxetine DULoxetine No DULoxetine HCl 30MG HCl 30MG HCl 30MG Immunizations Ordered Immunization Filled Immunization Date Status Commen ts Source Name Name FLUZONE HIGH DOSE FLUZONE HIGH DOSE 2021-10-24 [facility] OVER [facility] 10:19:00 [facility] FLUZONE HIGH DOSE FLUZONE HIGH DOSE 2021-10-24 Completed [facility] OVER 65 OVER 65 10:19:00 [facility] FLUZONE HIGH DOSE FLUZONE HIGH DOSE 2021-10-24 Completed [facility] OVER 65 OVER 65 10:19:00 [facility] FLUZONE HIGH DOSE FLUZONE HIGH DOSE 2021-10-24 Completed [facility] OVER 65 OVER 65 10:19:00 [facility] FLUZONE HIGH DOSE FLUZONE HIGH DOSE 2021-10-24 Completed [facility] OVER 65 OVER 65 10:19:00 [facility] FLUZONE HIGH DOSE FLUZONE HIGH DOSE 2021-10-24 Completed [facility] OVER 65 OVER 65 10:19:00 [facility] FLUZONE HIGH DOSE FLUZONE HIGH DOSE 2021-10-24 Completed [facility] OVER 65 OVER 65 10:19:00 [facility] FLUZONE HIGH DOSE FLUZONE HIGH DOSE 2021-10-24 Completed [facility] OVER 65 OVER 65 10:19:00 [facility] COVID19 [facility] COVID-19 2021-10-24 Com[facility] Vaccine (Low Dose Vaccine (Low Dose 10:17:00 - [facility] Booster) Booster) [facility] COVID19 Moderna COVID-19 2021-10-24 Completed [facility] Vaccine (Low Dose Vaccine (Low Dose 10:17:00 [facility] Booster) Booster) [facility] COVID19 [facility] COVID19 2021-10-24 Com[facility] Vaccine (Low Dose Vaccine (Low Dose 10:17:00 - [facility] Booster) Booster) [facility] COVID19 [facility] COVID19 2021-10-24 Com[facility] Vaccine (Low Dose Vaccine (Low Dose 10:17:00 - [facility] Booster) Booster) [facility] [address] COVID19 2021-10-24 Com[facility] Vaccine (Low Dose Vaccine (Low Dose 10:17:00 - [facility] Booster) Booster) [facility] [address] COVID19 2021-10-24 Com[facility] Vaccine (Low Dose Vaccine (Low Dose 10:17:00 - [facility] Booster) Booster) [facility] [address] COVID19 2021-10-24 Com[facility]ine (Low Dose Vaccine (Low Dose 10:17:[address] - [facility] Booster) Booster) [facility] [address] [facility]24 [facility] Vaccine (Low Dose Vaccine (Low Dose 10:17:00 - [facility] Booster) Booster) [facility] Td Td 2020-06-14 Com[facility] 14:12:00 [facility] Td Td 2020-06-14 Completed [facility] 14:12:00 [facility] Td Td 2020-06-14 Completed [facility] 14:12:00 [facility] Td Td 2020-06-14 Completed [facility] 14:12:00 [facility] Td Td 2020-06-14 Completed [facility] 14:12:00 [facility] Td Td 2020-06-14 Completed [facility] 14:12:00 [facility] Td Td 2020-06-14 Completed [facility] 14:12:00 [facility] Td Td 2020-06-14 Completed [facility] 14:12:00 [facility] Td Td 2020-06-14 Completed [facility] 14:12:00 [facility] Td Td 2020-06-14 Completed [facility] 14:12:00 - [facility] Td Td 2020-06-14 Completed [facility] 14:12:00 - [facility] Td Td 2020-06-14 Completed [facility] 14:12:00 - [facility] Td Td 2020-06-14 Completed [facility] 14:12:00 - [facility] Td Td 2020-06-14 Completed [facility] 14:12:00 - [facility] Td Td 2020-06-14 Completed [facility] 14:12:00 - [facility] Td Td 2020-06-14 Completed [facility] 14:12:00 - [facility] Td Td 2020-06-14 Completed [facility] 14:12:00 - [facility] Td Td 2020-06-14 Completed [facility] 14[facility]12:00 - [facility] Td Td 2020-06-14 Completed [facility] 14:12:00 - [facility] Fluzone Fluzone 2019-10-26 Completed [facility] 09:38:00 - [facility] Fluzone Fluzone 2019-10-26 Completed [facility] 09:38:00 - [facility] Fluzone Fluzone 2019-10-26 Completed [facility] 09:38:00 - [facility] Fluzone Fluzone 2019-10-26 Completed [facility] 09:38:00 - [facility] Fluzone Fluzone 2019-10-26 Completed [facility] 09:38:00 - [facility] Fluzone Fluzone 2019-10-26 Completed [facility] 09:38:00 - [facility] Fluzone Fluzone 2019-10-26 Completed [facility] 09:38:00 - [facility] Fluzone Fluzone 2019-10-26 Completed [facility] 09:38:00 - [facility] Fluzone Fluzone 2019-10-26 Completed [facility] 09:38:00 - [facility] Fluzone Fluzone 2019-10-26 Completed [facility] 09:38:00 [facility] Fluzone Fluzone 2019-10-26 Completed [facility] 09:38:00 - [facility] Fluzone Fluzone 2019-10-26 Completed [facility] 09:38:00 - [facility] Fluzone Fluzone 2019-10-26 Completed [facility] 09:38:00 - [facility] Fluzone Fluzone 2019-10-26 Completed [facility] 09:38:00 - [facility] Fluzone Fluzone 2019-10-26 Completed [facility] 09:38:00 - [facility] Fluzone Fluzone 2019-10-26 Completed [facility] 09:38:00 - [facility] Fluzone Fluzone 2019-10-26 Completed [facility] 09:38:00 - [facility] Fluzone Fluzone 2019-10-26 Completed [facility] 09:38:00 - [facility] Fluzone Fluzone 2019-10-26 Completed [facility] 09:38:00 - [facility] FLUZONE HIGH DOSE FLUZONE HIGH DOSE 2018-11-03 Completed [facility] OVER 65 OVER 65 08:03:00 - [facility] FLUZONE HIGH DOSE FLUZONE HIGH DOSE 2018-11-03 Completed [facility] OVER 65 OVER 65 08:03:00 - [facility] FLUZONE HIGH DOSE FLUZONE HIGH DOSE 2018-11-03 Completed [facility] OVER 65 OVER 65 08:03:00 - [facility] FLUZONE HIGH DOSE FLUZONE HIGH DOSE 2018-11-03 Completed [facility] OVER 65 OVER 65 08:03:00 - [facility] FLUZONE HIGH DOSE FLUZONE HIGH DOSE 2018-11-03 Completed [facility] OVER 65 OVER 65 08:03:00 - [facility] FLUZONE HIGH DOSE FLUZONE HIGH DOSE 2018-11-03 Completed [facility] OVER 65 OVER 65 08:03:00 - [facility] FLUZONE HIGH DOSE FLUZONE HIGH DOSE 2018-11-03 Completed [facility] OVER 65 OVER 65 08:03:00 - [facility] FLUZONE HIGH DOSE FLUZONE HIGH DOSE 2018-11-03 Completed [facility] OVER 65 OVER 65 08:03:00 - [facility] FLUZONE HIGH DOSE FLUZONE HIGH DOSE 2018-11-03 Completed [facility] OVER 65 OVER 65 08:03:00 - [facility] FLUZONE HIGH DOSE FLUZONE HIGH DOSE 2018-11-03 Completed [facility] OVER 65 OVER 65 08:03:00 - [facility] FLUZONE HIGH DOSE FLUZONE HIGH DOSE 2018-11-03 Completed [facility] OVER 65 OVER 65 08:03:00 - [facility] FLUZONE HIGH DOSE FLUZONE HIGH DOSE 2018-11-03 Completed [facility] OVER 65 OVER 65 08:03:00 - [facility] FLUZONE HIGH DOSE FLUZONE HIGH DOSE 2018-11-03 Completed [facility] OVER 65 OVER 65 08:03:00 - [facility] FLUZONE HIGH DOSE FLUZONE HIGH DOSE 2018-11-03 Completed [facility] OVER 65 OVER 65 08:03:00 - [facility] FLUZONE HIGH DOSE FLUZONE HIGH DOSE 2018-11-03 Completed [facility] OVER 65 OVER 65 08:03:00 - [facility] FLUZONE HIGH DOSE FLUZONE HIGH DOSE 2018-11-03 Completed [facility] OVER 65 OVER 65 08:03:00 - [facility] FLUZONE HIGH DOSE FLUZONE HIGH DOSE 2018-11-03 Completed [facility] OVER 65 OVER 65 08:03:00 - [facility] FLUZONE HIGH DOSE FLUZONE HIGH DOSE 2018-11-03 Completed [facility] OVER 65 OVER 65 08:03:00 - [facility] FLUZONE HIGH DOSE FLUZONE HIGH DOSE 2018-11-03 Completed [facility] OVER 65 OVER 65 08:03:00 - [facility] Kenalog Kenalog 2017-03-28 Completed [facility] (Triamcinolone) (Triamcinolone) 15:52:00 - I [facility] Vital Signs Vital Name Observation Time Observation Value Comments Source height 2022-02-14 15:40:00 72 [in_i] [facility] weight 2022-02-14 15:40:00 234.0 [lb_av] [facility] temperature 2022-02-14 15:40:00 97.2 [degF] [facility] bmi 2022-02-14 15:40:00 31.73 kg/m2 [facility] 2022-02-14 15:40:00 98 % [facility] respiratory rate 2022-02-14 15:40:00 17 /min Comm on [facility] blood pressure 2022-02-14 15:40:00 125 mm[Hg] [facility] systolic [facility] blood pressure 2022-02-14 15:40:00 71 mm[Hg] [facility] diastolic [facility] height 2022-01-04 14:20:00 72 [in_i] [facility] weight 2022-01-04 14:20:00 229 [lb_av] [facility] bmi 2022-01-04 14:20:00 31.05 kg/m2 [facility] height 2021-12-01 08:20:00 72 [in_i] [facility] weight 2021-12-01 08:20:00 229.6 [lb_av] Common [facility] temperature 2021-12-01 08:20:00 97.9 [degF] [facility] bmi 2021-12-01 08:20:00 31.14 kg/m2 [facility] oximetry 2021-12-01 08:20:00 97 % [facility] respiratory rate 2021-12-01 08:20:00 15 /min Comm on [facility] blood pressure 2021-12-01 08:20:00 127 mm[Hg] [facility] - systolic [facility] blood pressure 2021-12-01 08:20:00 71 mm[Hg] [facility] height 2021-05-30 08:20:00 72 [in_i] [facility] weight 2021-05-30 08:20:00 235 [lb_av] Common [facility] temperature 2021-05-30 08:20:00 97.7 [degF] [facility] bmi 2021-05-30 08:20:00 31.87 kg/m2 [facility] oximetry 2021-05-30 08:20:00 96 % Common [facility] respiratory rate 2021-05-30 08:20:00 18 /min Comm on [facility] blood pressure 2021-05-30 08:20:00 133 mm[Hg] [facility] blood pressure 2021-05-30 08:20:00 68 mm[Hg] [facility] - diastolic [facility] height 2021-04-25 12:00:00 72 [in_i] Common [facility] weight 2021-04-25 12:00:00 232 [lb_av] [facility] bmi 2021-04-25 12:00:00 31.46 kg/m2 [facility] weight 2020-11-29 08:00:00 232 [lb_av] [facility] temperature 2020-11-29 08:00:00 97.2 [degF] [facility] bmi 2020-11-29 08:00:00 31.46 kg/m2 [facility] oximetry 2020-11-29 08:00:00 95 % Common [facility] respiratory rate 2020-11-29 08:00:00 19 /min Comm on [facility] blood pressure 2020-11-29 08:00:00 131 mm[Hg] [facility] - systolic [facility] blood pressure 2020-11-29 08:00:00 68 mm[Hg] [facility] - diastolic [facility] height 2020-11-29 08:00:00 72.00 [in_i] [facility] Systolic (mm Hg) 2022-01-03 16:00:00 [facility] Diastolic (mm Hg) 2022-01-03 16:00:00 [facility] Heart Rate 2022-01-03 16:00:00 [facility] Height 2022-01-03 16:00:00 5 [ft_i] [facility] Weight 2022-01-03 16:00:00 [facility] BMI Calculated 2022-01-03 16:00:00 [facility] Systolic (mm Hg) 2021-09-08 15:40:00 [facility] Diastolic (mm Hg) 2021-09-08 15:40:00 [facility] Heart Rate 2021-09-08 15:40:00 [facility] Respitory Rate 2021-09-08 15:40:00 [facility] Height 2021-09-08 15:40:00 180.34 cm [facility] Weight 2021-09-08 15:40:00 [facility] BMI Calculated 2021-09-08 15:40:00 [facility] Systolic (mm Hg) 2021-08-08 18:58:00 [facility] Diastolic (mm Hg) 2021-08-08 18:58:00 [facility] Heart Rate 2021-08-08 18:58:00 [facility] Respitory Rate 2021-08-08 18:58:00 [facility] Height 2021-08-08 18:58:00 180.34 cm [facility] Weight 2021-08-08 18:58:00 [facility] BMI Calculated 2021-08-08 18:58:00 [facility] Systolic (mm Hg) 2021-03-09 16:47:00 [facility] Diastolic (mm Hg) 2021-03-09 16:47:00 [facility] Heart Rate 2021-03-09 16:47:00 [facility] Respitory Rate 2021-03-09 16:47:00 [facility] Height 2021-03-09 16:47:00 180.34 cm [facility] Weight 2021-03-09 16:47:00 [facility] BMI Calculated 2021-03-09 16:47:00 [facility] Systolic (mm Hg) 2020-06-02 15:55:00 [facility] Diastolic (mm Hg) 2020-06-02 15:55:00 [facility] Heart Rate 2020-06-02 15:55:00 [facility] Respitory Rate 2020-06-02 15:55:00 [facility] Weight 2020-06-02 15:55:00 [facility] Systolic (mm Hg) 2019-11-12 15:22:00 [facility] Diastolic (mm Hg) 2019-11-12 15:22:00 [facility] Heart Rate 2019-11-12 15:22:00 [facility] Respitory Rate 2019-11-12 15:22:00 [facility] Height 2019-11-12 15:22:00 154.94 cm [facility] Weight 2019-11-12 15:22:00 [facility] BMI Calculated 2019-11-12 15:22:00 [facility] Systolic (mm Hg) 2019-05-12 15:58:00 [facility] Diastolic (mm Hg) 2019-05-12 15:58:00 [facility] Heart Rate 2019-05-12 15:58:00 [facility] Respitory Rate 2019-05-12 15:58:00 [facility] Height 2019-05-12 15:58:00 180.34 cm [facility] Weight 2019-05-12 15:58:00 [facility] BMI Calculated 2019-05-12 15:58:00 [facility] Systolic (mm Hg) 2018-11-10 16:03:00 [facility] Diastolic (mm Hg) 2018-11-10 16:03:00 [facility] Heart Rate 2018-11-10 16:03:00 [facility] Respitory Rate 2018-11-10 16:03:00 [facility] Height 2018-11-10 16:03:00 180.34 cm [facility] Weight 2018-11-10 16:03:00 [facility] BMI Calculated 2018-11-10 16:03:00 [facility] BMI Calculated 2018-07-02 14:22:00 [facility] Weight 2018-07-02 14:22:00 [facility] Height 2018-07-02 14:22:00 177.8 cm [facility] Heart Rate 2018-07-02 14:22:00 [facility] Respitory Rate 2018-07-02 14:22:00 [facility] Systolic (mm Hg) 2018-07-02 14:22:00 [facility] Diastolic (mm Hg) 2018-07-02 14:22:00 [facility] Weight 2017-12-31 17:56:00 [facility] Height 2017-12-31 17:56:00 182.88 cm [facility] BMI Calculated 2017-12-31 17:56:00 [facility] Heart Rate 2017-12-31 17:56:00 [facility] Respitory Rate 2017-12-31 17:56:00 [facility] Systolic (mm Hg) 2017-12-31 17:56:00 [facility] Diastolic (mm Hg) 2017-12-31 17:56:00 [facility] BMI Calculated 2017-12-02 18:08:00 [facility] Weight 2017-12-02 18:08:00 [facility] Height 2017-12-02 18:08:00 180.34 cm [facility] Heart Rate 2017-12-02 18:08:00 [facility] Systolic (mm Hg) 2017-12-02 18:08:00 [facility] Diastolic (mm Hg) 2017-12-02 18:08:00 [facility] Procedures Procedure Date / Time Performed Performing Clinician [facility] e Lumbar spinal fusion [facility] Plan of Care Planned Activity Planned Date Details Comments Source Future Scheduled 2022-03-04 COVID-19 VACCINE (#1) [facility] Test 21:27:28 [code = COVID-19 VACCINE (#1)] Future Scheduled 2022-03-04 Hepatitis C screening [facility] Test 21:27:28 (procedure) [code = 633655583] Future Scheduled 2022-03-04 SHINGLES VACCINES (1 [facility] Test 21:27:28 of 2) [code = SHINGLES VACCINES (1 of 2)] Future Scheduled 2022-03-04 65+ [facility] 21:27:28 VACCINE (1 - PCV) [code = 65+ PNEUMOCOCCAL VACCINE (1 - PCV)] Future Scheduled 2022-03-04 [facility]ACCINE [facility] 21:27:28 [code = INFLUENZA VACCINE] Future Scheduled 2021-12-22 HEPATITIS B VACCINES [facility] Test 09:19:05 (1 of 3 - 3-dose series) [code = HEPATITIS B VACCINES (1 of 3 - 3-dose series)] Future Scheduled 2021-12-22 COVID-19 VACCINE (#1) [facility] Test 09:19:05 [code = COVID-19 VACCINE (#1)] Future Scheduled 2021-12-22 Hepatitis C screening [facility] Test 09:19:05 (procedure) [code = [id number]] Future Scheduled 2021-12-22 SHINGLES VACCINES (1 [facility] Test 09:19:05 of 2) [code = SHINGLES VACCINES (1 of 2)] Future Scheduled 2021-12-22 65+ [facility]:05 VACCINE (1 - PCV) [code = 65+ PNEUMOCOCCAL VACCINE (1 - PCV)] Future Scheduled 2021-12-22 [facility] VACCINE [facility] 09:19:05 [code = INFLUENZA VACCINE] Encounters Start End Encounter Admission Attending Care Care Encounter Source Date/Time Date/Time Type Type Clinicians Facility Department ID 2022-02-01 Outpatient Uribe, Na STLMLC STLMLC [id number] 2 Common 14:53:00 [facility] 2022-01-31 Outpatient Uribe, Na STLMLC STLMLC [id number] 2 Common 09:46:00 [facility] 2022-01-04 Outpatient Uribe, Na STLMLC STLMLC [id number] 2 Common 08:54:01 [facility] 2022-01-03 Outpatient Uribe, Na STLMLC STLMLC [id number] 2 Common 15:07:00 [facility] 2022-01-02 Outpatient Uribe, Na STLMLC STLMLC [id number] 2 Common 15:52:00 [facility] 2021-05-26 Outpatient Uribe, Na STLMLC STLMLC [id number] 2 Common 10:31:00 [facility] 2021-04-25 Outpatient Uribe, Na STLMLC STLMLC [id number] 2 Common 11:00:01 [facility] 2021-03-15 Outpatient Uribe, Na STLMLC STLMLC [id number] 2 Common 13:58:48 [id number] [facility] 2021-03-15 Outpatient Uribe, Na STLMLC STLMLC [id number] 2 Common 13:58:27 [id number] [facility] 2021-03-15 Outpatient Uribe, Na STLMLC STLMLC [id number] 2 Common 12:50:58 [id number] [facility] 2021-03-15 Outpatient Uribe, Na STLMLC STLMLC [id number] 2 Common 12:50:38 [id number] [facility] 2021-03-15 Outpatient Uribe, Na STLMLC STLMLC [id number] 2 Common 12:36:11 [id number] [facility] 2021-03-15 Outpatient Uribe, Na STLMLC STLMLC [id number] 2 Common 12:35:21 [id number] [facility] 2021-03-15 Outpatient Uribe, Na STLMLC STLMLC [id number] 2 Common 12:32:30 [id number] [facility] 2021-03-15 Outpatient Uribe, Na STLMLC STLMLC [id number] 2 Common 11:54:17 [id number] [facility] 2021-03-15 Outpatient Uribe, Na STLMLC STLMLC [id number] 2 Common 11:53:36 [id number] [facility] 2021-03-15 Outpatient Uribe, Na STLMLC STLMLC [id number] 2 Common 11:49:06 [id number] [facility] 2021-03-15 Outpatient Uribe, Na STLMLC STLMLC [id number] 2 Common 11:45:59 [id number] [facility] 2021-03-15 Outpatient Uribe, Na STLMLC STLMLC [id number] 2 Common 11:06:01 [id number] [facility] 2022-07-03 2022-07-03 Outpatient MHIE MHIE [id number] [facility] 10:45:00 10:45:00 18 cuco [place]ul[place] 2022-03-07 2022-03-07 (TEL) STLMLC STLMLC [id number] [facility] 00:00:00 00:00:00 [facility] 2022-03-07 2022-03-07 (TEL) STLMLC STLMLC [id number] [facility] 00:00:00 00:00:00 [facility] 2022-02-14 2022-02-14 OFFICE STLMLC STLMLC [id number] [facility] 00:00:00 00:00:00 VISIT EST Spir it PT LEVEL 3 [facility] 2022-02-13 2022-02-13 (TEL) STLMLC STLMLC [id number] [facility] 00:00:00 00:00:00 [facility] 2022-02-02 2022-02-02 OFFICE STLMLC STLMLC [id number] Co mmon 00:00:00 00:00:00 VISIT EST Spir it PT LEVEL 3 [facility] 2022-01-03 2022-01-04 Outpatient MHIE MNA [id number] Memoria 16:15:00 05:59:59 Neurology 17 cuco Beaulieu 2022-01-04 2022-01-04 OFFICE STLMLC STLMLC [id number] Co mmon 00:00:00 00:00:00 VISIT EST Spir it PT LEVEL 3 [facility] 2022-01-03 2022-01-03 Outpatient AARTI GómezMISCHER MHMISCHER [id number] 10:15:00 23:59:59 David Mari aD Leong 2022-01-03 2022-01-03 Outpatient MHIE MHIE [id number] Memoria 10:15:00 10:15:00 17 cuco Beaulieu 2021-12-01 2021-12-01 OFFICE STLMLC STLMLC [id number] Co mmon 00:00:00 00:00:00 VISIT Spirit ESTAB PT - CHI LEVEL 4 [facility] 2021-11-02 2021-11-02 (TEL) STLMLC STLMLC [id number] Co mmon 00:00:00 00:00:00 [facility] 2021-09-08 2021-09-09 Outpatient nullFlavo MNA [id number] Memoria 15:45:00 04:59:59 r Neurology 16 l Tal Puposky 2021-09-08 2021-09-08 Outpatient Dalia, MHMISCHER MHMISCHER [id number] 10:45:00 23:59:59 David 16 Salo 2021-09-08 2021-09-08 Outpatient MHIE MHIE [id number] Memoria 10:45:00 10:45:00 16 cuco Beaulieu 2021-08-28 2021-08-28 (TEL) STLMLC STLMLC [id number] Co mmon 00:00:00 00:00:00 [facility] 2021-08-08 2021-08-09 Outpatient nullFlavo MNA [id number] Memoria 19:00:00 04:59:59 r Neurology 15 l Tal Puposky 2021-08-08 2021-08-08 Outpatient Dalia, MHMISCHER MHMISCHER [id number] 14:00:00 23:59:59 David 15 Salo 2021-08-08 2021-08-08 Outpatient MHIE MHIE [id number] Memoria 14:00:00 14:00:00 15 cuco Beaulieu 2021-08-01 2021-08-01 (TEL) STLMLC STLMLC [id number] Co mmon 00:00:00 00:00:00 [facility] 2021-06-20 2021-06-20 (TEL) STLMLC STLMLC [id number] Co mmon 00:00:00 00:00:00 [facility] 2021-05-30 2021-05-30 OFFICE STLMLC STLMLC [id number] Co mmon 00:00:00 00:00:00 VISIT EST Spir it PT LEVEL 3 - [facility] 2021-05-22 2021-05-22 (TEL) STLMLC STLMLC [id number] Co mmon 00:00:00 00:00:00 [facility] 2021-04-25 2021-04-25 (TEL) STLMLC STLMLC [id number] Co mmon 00:00:00 00:00:00 [facility] 2021-04-25 2021-04-25 OL DIG E/M STLMLC STLMLC [id number] Common 00:00:00 00:00:00 [facility] 11-20 Spir it [facility] 2021-03-31 2021-03-31 (TEL) STLMLC STLMLC [id number] Co mmon 00:00:00 00:00:00 [facility] 2021-03-28 2021-03-28 (TEL) STLMLC STLMLC [id number] Co mmon 00:00:00 00:00:00 [facility] 2021-03-09 2021-03-10 Outpatient nullFlavo MNA [id number] Memoria 16:45:00 05:59:59 r Neurology 14 l Tal Beaulieu 2021-03-09 2021-03-09 Outpatient Dalia, MHMISCHER MHMISCHER [id number] 10:45:00 23:59:59 David 14 Salo 2021-03-09 2021-03-09 Outpatient MHIE MHIE [id number] Memoria 10:45:00 10:45:00 14 l Christofer 2020-12-13 2020-12-13 (TEL) STLMLC STLMLC [id number] Co mmon 00:00:00 00:00:00 [facility] 2020-11-29 2020-11-29 OFFICE STLMLC STLMLC [id number] Co mmon 00:00:00 00:00:00 VISIT [facility] 4 [facility] 2020-10-11 2020-10-11 Outpatient STLMLC STLMLC [id number] Common 00:00:00 00:00:00 [facility] 2020-06-14 2020-06-14 Outpatient STLMLC STLMLC [id number] Common 00:00:00 00:00:00 [facility] 2020-06-02 2020-06-03 Outpatient nullFlavo MNA [id number] Memoria 15:45:00 04:59:59 r Neurology 13 cuco Beaulieu 2020-06-02 2020-06-02 Outpatient GRACE GómezSCHER MISCHER [id number] 10:45:00 23:59:59 David Nydia Leong 2020-06-02 2020-06-02 Outpatient MHIE MHIE [id number] Memoria 10:45:00 10:45:00 13 cuco Beaulieu 2020-05-31 2020-05-31 Outpatient STLMLC STLMLC [id number] Common 00:00:00 00:00:00 [facility] 2020-05-11 2020-05-11 Ambulatory nullFlavo MNA [id number] Memoria 15:00:00 15:00:00 Pre-Reg r Neurology 12 cuco Beaulieu 2020-05-11 2020-05-11 Outpatient MHIE MHIE [id number] Memoria 10:00:00 10:00:00 12 cuco Baeulieu 2020-05-11 2020-05-11 Outpatient GRACE GómezSCHER MISCHER [id number] 10:00:00 10:00:00 Davidcharleen Leong 2020-04-19 2020-04-19 Outpatient STLMLC STLMLC [id number] Common 00:00:00 00:00:00 [facility] 2020-04-19 2020-04-19 Outpatient STLMLC STLMLC [id number] Common 00:00:00 00:00:00 [facility] 2020-04-12 2020-04-12 Outpatient STLMLC STLMLC [id number] Common 00:00:00 00:00:00 [facility] 2019-12-18 2019-12-18 Outpatient STLMLC STLMLC [id number] Common 00:00:00 00:00:00 [facility] 2019-12-03 2019-12-03 Outpatient STLMLC STLMLC [id number] Common 00:00:00 00:00:00 [facility] 2019-12-01 2019-12-01 Outpatient STLMLC STLMLC [id number] Common 00:00:00 00:00:00 [facility] 2019-11-26 2019-11-26 Outpatient DENNY [facility] [id number] [address] [place] [address] 00:00:00 00:00:00 CHRIS wheatley 2019-11-12 2019-11-13 Outpatient nullFlavo MNA [id number] Memoria 15:15:00 04:59:59 r Neurology 11 l Tal Puposky 2019-11-12 2019-11-12 Outpatient AARTI GómezMISCHER MISCHER [id number] 10:15:00 23:59:59 David 11 Salo 2019-11-12 2019-11-12 Ambulatory nullFlavo MNA [id number] Memoria 15:15:00 15:15:00 Pre-Reg r Neurology 10 l Tal Puposky 2019-11-12 2019-11-12 Outpatient MHIE MHIE [id number] Memoria 10:15:00 10:15:00 11 l Puposky 2019-11-12 2019-11-12 Outpatient MHIE MHIE [id number] Memoria 10:15:00 10:15:00 10 l Puposky 2019-11-12 2019-11-12 Outpatient GRACE GómezSCHER MISCHER [id number] 10:15:00 10:15:00 David 10 Salo 2019-11-03 2019-11-03 [facility] [id number] Common 11:00:00 11:00:[address] [facility] 2019-11-03 2019-11-03 [facility] [id number] Common 09:23:00 09:23:[address] [facility] 2019-09-16 2019-09-16 [facility] [id number] Common 13:52:00 13:52:[address] [facility] 2019-08-03 2019-08-03 [facility] [id number] Common 08:04:00 08:04:[address] [facility] 2019-07-29 2019-07-29 [facility] [id number] Common 10:00:00 10:00:[address] [facility] 2019-07-29 2019-07-29 [facility] [id number] Common 09:00:00 09:00:[address] [facility] 2019-05-12 2019-05-13 Outpatient nullFlavo MNA [id number] Memoria 16:00:00 04:59:59 r Neurology 09 l Tal Beaulieu 2019-05-12 2019-05-12 Outpatient Dalia, MHMISCHER MHMISCHER [id number] 11:00:00 23:59:59 David 09 Salo 2019-05-12 2019-05-12 Outpatient MHIE MHIE [id number] Memoria 11:00:00 11:00:00 09 l Christofer 2019-04-08 2019-04-08 Outpatient [facility] [id number] [facility] 07:18:00 07:18:00 _A_ [id number] Family Practic e 2019-04-07 2019-04-07 [facility] [id number] Common 08:41:00 08:41:[address] [facility] 2019-03-30 2019-03-30 [facility] [id number] Common 10:00:00 10:00:[address] [facility] 2018-12-26 2018-12-26 [facility] [id number] Common 10:00:00 10:00:[address] [facility] 2018-11-25 2018-11-25 [facility] [id number] Common 10:20:00 10:20:[address] [facility] 2018-11-10 2018-11-11 Outpatient nullFlavo MNA [id number] Memoria 16:00:00 04:59:59 r Neurology 08 l Tal Beaulieu 2018-11-10 2018-11-10 Outpatient AARTI GómezMISCHER MISCHER [id number] 11:00:00 23:59:59 David 08 Salo 2018-11-10 2018-11-10 Outpatient MHIE MHIE [id number] Memoria 11:00:00 11:00:00 08 cuco Christofer 2018-10-28 2018-10-28 Ambulatory nullFlavo MNA [id number] Memoria 14:15:00 14:15:00 Pre-Reg r Neurology 07 cuco Tal Beaulieu 2018-10-28 2018-10-28 Outpatient MHIE MHIE [id number] Memoria 09:15:00 09:15:00 07 cuco Christofer 2018-10-28 2018-10-28 Outpatient Dalia, MHMISCHER MISCHER [id number] 09:15:00 09:15:00 David Edgar Leong 2018-10-16 2018-10-16 [facility] [id number] Common 09:00:00 09:00:[address] [facility] 2018-08-27 2018-08-27 [facility] [id number] Common 11:40:00 11:40:[address] [facility] 2018 2018 [facility] [id number] Common 10:16:00 10:16:[address] [facility] 2018-07-18 2018-07-18 Ambulatory nullFlavo MNA [id number] Memoria 15:00:00 15:00:00 Pre-Reg r Neurology 01 cuco Tal Beaulieu 2018-07-18 2018-07-18 Outpatient MHIE MHIE [id number] Memoria 10:00:00 10:00:00 Jesus norwood Christofer 2018-07-18 2018-07-18 Outpatient GRACE GómezSCHER MHMISCHER [id number] 10:00:00 10:00:00 David Jesus Leong 2018-07-02 2018-07-03 Outpatient nullFlavo MNA [id number] Memoria 14:30:00 04:59:59 r Neurology 06 cuco Tal Beaulieu 2018-07-02 2018-07-02 Outpatient Dalia MHMISCHER MHMISCHER [id number] 09:30:00 23:59:59 David Topher Leong 2018-07-02 2018-07-02 Outpatient MHIE MHIE [id number] Memoria 09:30:00 09:30:00 06 cuco Christofer 2018-06-19 2018-06-19 [facility] [id number] Common 08:28:00 08:28:[address] [facility] 2018-05-20 2018-05-20 [facility] [id number] Common 09:30:00 09:30:00 [facility] 2018-04-28 2018-04-28 [facility] [id number] Common 16:04:00 16:04:[address] [facility] 2018-04-10 2018-04-10 [facility] [id number] Common 09:30:00 09:30:[address] [facility] 2018-04-07 2018-04-07 [facility] [id number] Common 14:59:00 14:59:[address] [facility] 2018-04-01 2018-04-01 Outpatient MHIE MHIE [id number] Memoria 11:00:00 11:00:00 05 cuco Christofer 2018-03-11 2018-03-13 Phone nullFlavo MNA [id number] Memoria 14:53:00 05:59:59 Message r Neurology 01 l Tal Beaulieu 2018-03-11 2018-03-12 Outpatient MHMISCHER MHMISCHER [id number] 08:53:00 23:59:59 2018-01-28 2018-01-30 Phone nullFlavo MNA [id number] Memoria 15:51:00 05:59:59 Message r Neurology 00 l Tal Beaulieu 2018-01-28 2018-01-29 Outpatient MHMISCHER MHMISCHER [id number] 09:51:00 23:59:59 00 2017-12-31 2018-01-01 Outpatient nullFlavo MNA [id number] Memoria 17:15:00 05:59:59 r Neurology 04 cuco [place] Christofer 2017-12-31 2017-12-31 [id number] 11:15:00 23:59:59 David Mignon Leong 2017-12-31 2017-12-31 Outpatient MHIE MHIE [id number] Memoria 11:15:00 11:15:00 04 cuco Christofer 2017-12-02 2017-12-03 Outpatient nullFlavo MNA [id number] Memoria 18:00:00 04:59:59 r Neurology 03 cuco [place] Christofer 2017-12-02 2017-12-02 [facility] [id number] 13:00:00 23:59:59 David Geri Leong 2017-12-02 2017-12-02 Outpatient MHIE MHIE [id number] Memoria 13:00:00 13:00:00 03 cuco Beaulieu 2017-11-05 2017-11-05 Outpatient MHIE MHIE [id number] Memoria 14:00:00 14:00:00 02 cuco Beaulieu 2017-09-26 2017-09-26 [facility] [id number] Common 10:00:00 10:00:00 t [facility] 2017-09-05 2017-09-05 [facility] [id number] Common 09:00:00 09:00:[address] Family [facility] 2017-07-18 2017-07-18 Outpatient MHIE MHIE [id number] Memoria 10:45:00 10:45:00 00 cuco Beaulieu 2017-07-11 2017-07-11 Out[facility] [id number] Common 11:15:00 11:15:[address] [facility] 2017-07-01 2017-07-01 Out[facility] [id number] Common 11:15:00 11:15:00 t [facility] 2017-06-06 2017-06-06 [facility] [id number] Common 08:45:00 08:45:00 t [place] [address] [facility] Results Test Description Test Time Test Comments Results Result Comments Source HEMATOLOGY 2021-08-09 12:07:00 Test Item Value Reference Range Interpretation Comme nts Monocytes # (test code = Monocytes #) 673 200-950 [facility]199-63-97 12:07:00 Test Item Value Reference Range Interpretation Comments Eosinophils # (test code = Eosinophils 436 15-500 #) [facility]3803-98-75 12:07:00 Test Item Value Reference Range Interpretation Comments Basophils # (test code 59 See_Comment [Aut omated message] The = Basophils #) system which generated this result tra nsmitted reference range : <=200. The reference r david was not used to int erpret this result as normal/abnormal . [facility] HospitalBfitbxkLMBHPUDUQY5483-63-67 12:07:00 Test Item Value Reference Range Interpretation Comments Segs (test code = Segs) 58.3 [facility] HospitalOcjwanhJEBFSIQWXL2072-57-55 12:07:00 Test Item Value Reference Range Interpretation Comments Lymphocytes (test code = Lymphocytes) 24.0 [facility] HospitalOhucrnnNLVGFWOABK0822-94-70 12:07:00 Test Item Value Reference Range Interpretation Comments Monocytes (test code = Monocytes) 10.2 [facility] HospitalLzrknxfWKMBSPQHHF7668-43-73 12:07:00 Test Item Value Reference Range Interpretation Comments Eosinophils (test code = Eosinophils) 6.6 [facility] HospitalWdqnrmgYCPKBTJISF9657-10-66 12:07:00 Test Item Value Reference Range Interpretation Comments Basophils (test code = Basophils) 0.9 [facility] HospitalYzmachwMKRWWANKDC3194-52-95 12:07:00 Test Item Value Reference Range Interpretation Comments Sed Rate (test code = Sed Rate) 48 [facility]8396[facility]19-64 12:07:00 Test Item Value Reference Range Interpretation Comments C-REACTIVE PROTEIN (test code = 4.5 C-REACTIVE PROTEIN) [facility]2022-06-22 12:07:00 Test Item Value Reference Range Interpretation Comments Vitamin B12 Lvl (test code = Vitamin 100 918-1181 B12 Lvl) [place] 977702-06-22 12:07:00 Test Item Value Reference Range Interpretation Comments Glucose Lvl (test code = Glucose Lvl) 88 65-99 [place] 977702-06-22 12:07:00 Test Item Value Reference Range Interpretation Comments BUN (test code = BUN) 16 7-25 [place] 977702-06-22 12:07:00 Test Item Value Reference Range Interpretation Comments Creatinine Lvl (test code = Creatinine 0.98 0.70-1.18 Lvl) [place] 977702-06-22 12:07:00 Test Item Value Reference Range Interpretation Comments eGFR NON-AFR. ZIMBABWEAN (test code = 74 eGFR NON-AFR. ZIMBABWEAN) [place] 977702-06-22 12:07:00 Test Item Value Reference Range Interpretation Comments eGFR (test code = eGFR 85 ) [place] 977702-06-22 12:07:00 Test Item Value Reference Range Interpretation Comments B/C Ratio (test code = B/C NOT APPLICABLE 08-09 Ratio) [place] 977702-06-22 12:07:00 Test Item Value Reference Range Interpretation Comments Sodium Lvl (test code = Sodium Lvl) 138 135-146 [place] 977702-06-22 12:07:00 Test Item Value Reference Range Interpretation Comments Potassium Lvl (test code = Potassium 4.7 3.5-5.3 Lvl) [place] 977702-06-22 12:07:00 Test Item Value Reference Range Interpretation Comments Chloride Lvl (test code = Chloride Lvl) 102 98-110 [place] 977702-06-22 12:07:00 Test Item Value Reference Range Interpretation Comments CO2 (test code = CO2) 29 20-32 [place] 977702-06-22 12:07:00 Test Item Value Reference Range Interpretation Comments Calcium Lvl (test code = Calcium Lvl) 9.5 8.6-10.3 [place] 977702-06-22 12:07:00 Test Item Value Reference Range Interpretation Comments Total Protein (test code = Total 7.3 6.1-8.1 Protein) [place] 977702-06-22 12:07:00 Test Item Value Reference Range Interpretation Comments Albumin Lvl (test code = Albumin Lvl) 4.0 3.6-5.1 [facility]2022-06-22 12:07:00 Test Item Value Reference Range Interpretation Comments Globulin (test code = Globulin) 3.3 1.9-3.7 [place] 977702-06-22 12:07:00 Test Item Value Reference Range Interpretation Comments A/G Ratio (test code = A/G Ratio) 1.2 1.0-2.5 [place] 977702-06-22 12:07:00 Test Item Value Reference Range Interpretation Comments Bili Total (test code = Bili Total) 0.7 0.2-1.2 [place] 977702-06-22 12:07:00 Test Item Value Reference Range Interpretation Comments Alk Phos (test code = Alk Phos) 82 35-144 [facility]2022-06-22 12:07:00 Test Item Value Reference Range Interpretation Comments ASPARTATE TRANSAMINASE (test code = 20 10-35 ASPARTATE TRANSAMINASE) [place] 977702-06-22 12:07:00 Test Item Value Reference Range Interpretation Comments ALANINE AMINOTRANSFERASE (test code = 12 9-46 ALANINE AMINOTRANSFERASE) [place] 800092-06-22 12:07:00 Test Item Value Reference Range Interpretation Comments WBC X 10x3 (test code = WBC X 10x3) 6.6 3.8-10.8 [place] 800092-06-22 12:07:00 Test Item Value Reference Range Interpretation Comments RBC X 10x6 (test code = RBC X 10x6) 3.81 4.20-5.80 [place] 800092-06-22 12:07:00 Test Item Value Reference Range Interpretation Comments Hgb (test code = Hgb) 12.1 13.2-17.1 [place] 800092-06-22 12:07:00 Test Item Value Reference Range Interpretation Comments Hct (test code = Hct) 36.8 38.5-50.0 [place] 800092-06-22 12:07:00 Test Item Value Reference Range Interpretation Comments MCV (test code = MCV) 96.6 80.0-100.0 [place] 800092-06-22 12:07:00 Test Item Value Reference Range Interpretation Comments MCH (test code = MCH) 31.8 pg 27.0-33.0 [facility]DmnmhitDAIKHXSUWP5059-01-21 12:07:00 Test Item Value Reference Range Interpretation Comments MCHC (test code = MCHC) 32.9 32.0-36.0 [facility] HospitalClguuywODZNFRRUCJ4056-67-59 12:07:00 Test Item Value Reference Range Interpretation Comments RDW (test code = RDW) 12.6 11.0-15.0 [facility] HospitalZwzdfyuLTWAUJSJBE6944-82-38 12:07:00 Test Item Value Reference Range Interpretation Comments Platelet (test code = Platelet) 200 140-400 [facility] HospitalTvyzfzbQJDATFTZLL5719-27-90 12:07:00 Test Item Value Reference Range Interpretation Comments MPV (test code = MPV) 11.2 7.5-12.5 [facility] HospitalBlruulxWLOLAUDZUT6063-37-69 12:07:00 Test Item Value Reference Range Interpretation Comments Neutrophils # (test code = Neutrophils 3848 7054-3726 #) [facility] HospitalSxttlxeNOOVRPCHET8436-20-49 12:07:00 Test Item Value Reference Range Interpretation Comments Lymphocytes # (test code = Lymphocytes 5711 299-9919 #) [facility]
[2022-03-26 12:03] LABS: Absolute Lymphocytes (CBC) 1.4 K/uL (0.7-4.9); Hematocrit 39.6 % (39.6-49.0); Lymphocytes % 25.8 % (15.3-44.8); MCV 94.9 fL (80-100); MPV 9.6 fL (7.6-11.3); RBC Red Blood Cell Count 4.18 M/uL (4.33-5.43)
[2022-03-26 12:11] LABS: Protime INR 1.01
[2022-03-26 12:16] LABS: SARS-CoV-2 Antigen Rapid Res Negative (Negative)
[2022-03-26 12:24] LABS: Albumin 3.7 g/dL (3.4-5.0); Bilirubin Direct 0.2 mg/dL (0-0.2); Bilirubin Total 0.7 mg/dL (0.2-1.0); Magnesium 2.4 mg/dL (1.6-2.4); Potassium 3.9 mmol/L (3.5-5.1); Protein, Total 7.7 g/dL (6.4-8.2); Troponin High Sensitivity 12.5 pg/mL (<58.9)
--- NOTE | 2022-03-26 12:57 | RAD REPORT ---
EXAM DESCRIPTION: CT - Soft Tissue Neck W/Contr - 03/26/2022 12:44 pm CLINICAL HISTORY: Neck swelling COMPARISON: None. TECHNIQUE: Computed axial tomography of the neck was obtained. 50 cc Isovue 300 was administered in travenously. Coronal and sagittal reconstruction was performed. All CT scans are performed using dose optimization technique as appropriate and may include automated exposure control or mA/KV adjustment according to patient size. FINDINGS: The pharynx, tongue base, larynx and subglottic trachea appear unremarkable The parotid and submandibular glands appear unremarkable. 24 millimeter nodule left lobe thyroid gland No lymphadenopathy is seen No fluid within the sinuses/mastoids IMPRESSION: 24 millimeter nodule left lobe of thyroid gland. Nonemergent ultrasound recommended
--- NOTE | 2022-03-26 13:17 | RAD REPORT ---
EXAM DESCRIPTION: [place] Single View03/26/2022 1:06 pm CLINICAL HISTORY: Chest pain COMPARISON: 2017 FINDINGS: The lungs appear clear of acute infiltrate. The heart is normal size IMPRESSION: No acute abnormalities displayed
--- NOTE | 2022-03-26 14:03 | EDPHYS ---
Physician Documentation [facility] Name: Terrence Monroy Age: 76 yrs Sex: Male : 1945 Arrival Date: 03/26/2022 Time: 10:34 Bed 9 Private MD: ED Physician Kailey Salazar HPI: 03/26 11:13 This 76 yrs old Male presents to ER via Ambulatory with complaints of Hives. snw 11:13 The patient's rash thought to be caused by an unknown cause. The rash is located on the snw body diffusely. The rash can be described as crusted, papular. Onset: The symptoms/episode began/occurred acutely. Severity of symptoms: At their worst the symptoms were moderate in the emergency department the symptoms are unchanged. The patient has not experienced similar symptoms in the past. has seen three providers for same rash. Historical: - Allergies: 11:08 Aspirin; ph 11:08 PENICILLINS; ph 11:08 Sulfa (Sulfonamide Antibiotics); ph 11:08 Tetanus-Diphtheria Toxoids-Td; ph - PMHx: 11:08 CHF; COPD; High Cholesterol; Hypertension; ph - Immunization history:: Adult Immunizations up to date. - Social history:: Smoking status: Patient denies any tobacco usage or history of. ROS: 11:11 Constitutional: Negative for fever, chills, and weight loss, Eyes: Negative for injury, snw pain, redness, and discharge, ENT: Negative for injury, pain, and discharge, Neck: Negative for injury, pain, and swelling, Cardiovascular: Negative for chest pain, palpitations, and edema, Respiratory: Negative for shortness of breath, cough, wheezing, and pleuritic chest pain, Abdomen/GI: Negative for abdominal pain, nausea, vomiting, diarrhea, and constipation, Back: Negative for injury and pain, : Negative for injury, bleeding, discharge, and swelling, MS/Extremity: Negative for injury and deformity, Neuro: Negative for headache, weakness, numbness, tingling, and seizure, Psych: Negative for depression, anxiety, suicide ideation, homicidal ideation, and hallucinations. 11:11 Skin: Positive for rash, diffusely, has seen three providers, three differing topical medications with steroids used without relief. Exam: 11:09 Constitutional: This is a well developed, well nourished patient who is awake, alert, snw and in no acute distress. Head/Face: Normocephalic, atraumatic. Eyes: Pupils equal round and reactive to light, extra-ocular motions intact. Lids and lashes normal. Conjunctiva and sclera are non-icteric and not injected. Cornea within normal limits. Periorbital areas with no swelling, redness, or edema. ENT: Nares patent. No nasal discharge, no septal abnormalities noted. Tympanic membranes are normal and external auditory canals are clear. Oropharynx with no redness, swelling, or masses, exudates, or evidence of obstruction, uvula midline. Mucous membranes moist. Neck: Trachea midline, no thyromegaly or masses palpated, and no cervical lymphadenopathy. Supple, full range of motion without nuchal rigidity, or vertebral point tenderness. No Meningismus. Chest/axilla: Normal chest wall appearance and motion. Nontender with no deformity. No lesions are appreciated. Cardiovascular: Regular rate and rhythm with a normal S1 and S2. No gallops, murmurs, or rubs. Normal PMI, no JVD. No pulse deficits. Respiratory: Lungs have equal breath sounds bilaterally, clear to auscultation and percussion. No rales, rhonchi or wheezes noted. No increased work of breathing, no retractions or nasal flaring. Abdomen/GI: Soft, non-tender, with normal bowel sounds. No distension or tympany. No guarding or rebound. No evidence of tenderness throughout. Back: No spinal tenderness. No costovertebral tenderness. Full range of motion. MS/ Extremity: Pulses equal, no cyanosis. Neurovascular intact. Full, normal range of motion. Neuro: Awake and alert, GCS 15, oriented to person, place, time, and situation. Cranial nerves II-XII grossly intact. Motor strength 5/5 in all extremities. Sensory grossly intact. Cerebellar exam normal. Normal gait. Psych: Awake, alert, with orientation to person, place and time. Behavior, mood, and affect are within normal limits. 11:09 Skin: Appearance: normal except for affected area, rash can be described as papular, and is diffusely located. Vital Signs: 11:06 BP 141 / 79; Pulse 85; Resp 18; Temp 98.2; Pulse Ox 96% on R/A; Weight 104.33 kg; ph Height 5 ft. 11 in. (180.34 cm); 14:09 BP 138 / 81; Pulse 71; Resp 14; Pulse Ox 98% on R/A; Pain 0/10; mb9 11:06 Body Mass Index 32.08 (104.33 kg, 180.34 cm) ph MDM: 11:07 Patient medically screened. snw 11:12 Differential diagnosis: allergic reaction, carcinoma. Data reviewed: vital signs, snw nurses notes. Care significantly affected by the following chronic conditions: Hypertension, Congestive Heart Failure, Chronic Obstructive Pulmonary Disease. 14:02 Counseling: I had a detailed discussion with the patient and/or guardian regarding: the snw historical points, exam findings, and any diagnostic results supporting the discharge/admit diagnosis, the presence of at least one elevated blood pressure reading (>120/80) during this emergency department visit, lab results, radiology results, the need for outpatient follow up, to return to the emergency department if symptoms worsen or persist or if there are any questions or concerns that arise at home. Special discussion: I have referred the patient to see his PCP for further evaluation of high blood pressure. Based on the history and exam findings, there is no indication for further emergent testing or inpatient evaluation. I discussed with the patient/guardian the need to see the primary care provider for further evaluation of the symptoms. 03/26 11:09 Order name: Basic Metabolic Panel; Complete Time: 12:27 snw 03/26 11:09 Order name: CBC with Diff; Complete Time: 12:05 snw 03/26 11:09 Order name: LFT's; Complete Time: 12:27 snw 03/26 11:09 Order name: Magnesium; Complete Time: 12:27 snw 03/26 11:09 Order name: NT PRO-BNP; Complete Time: 12:27 snw 03/26 11:09 Order name: PT-INR; Complete Time: 12:27 snw 03/26 11:09 Order name: Troponin HS; Complete Time: 12:27 snw 03/26 11:09 Order name: XRAY Chest (1 view); Complete Time: 13:17 snw 03/26 11:09 Order name: CT Soft Tissue Neck W/contr; Complete Time: 13:03 snw 03/26 11:11 Order name: Strep; Complete Time: 12:56 snw 03/26 11:11 Order name: SARS RAPID; Complete Time: 12:27 snw 03/26 13:00 Order name: Throat Culture EDMS 03/26 11:09 Order name: EKG; Complete Time: 11:10 snw 03/26 11:09 Order name: Cardiac monitoring; Complete Time: 12:24 snw 03/26 11:09 Order name: EKG - Nurse/Tech; Complete Time: 12:06 snw 03/26 11:09 Order name: IV Saline Lock; Complete Time: 12:06 snw 03/26 11:09 Order name: Labs collected and sent; Complete Time: 12:06 snw 03/26 11:09 Order name: O2 Per Protocol; Complete Time: 12:24 snw 03/26 11:09 Order name: O2 Sat Monitoring; Complete Time: 12:24 snw EC:15 Rate is 77 beats/min. Rhythm is irregular. Left axis deviation noted. No Q waves. snw Clinical impression: NSR w/ Non-specific ST/T Changes. Administered Medications: 14:09 Drug: Pepcid (famotidine) 20 mg Route: IVP; Site: right forearm; mb9 14:30 Follow up: Response: No adverse reaction ph 14:09 Drug: ZyrTEC - Cetirizine 10 mg Route: PO; mb9 14:30 Follow up: Response: No adverse reaction ph Disposition Summary: 03/26/22 14:03 Discharge Ordered Location: Home snw Condition: Stable snw Diagnosis - Rash and other nonspecific skin eruption snw Followup: snw - With: Lloyd Dunn DO - When: 2 - 3 days - Reason: Recheck today's complaints, Continuance of care, Re-evaluation by your physician Followup: snw - With: Emergency Department - When: As needed - Reason: Worsening of condition Discharge Instructions: - Discharge Summary Sheet snw - Allergies, Adult snw - Rash, Adult snw Forms: - Medication Reconciliation Form snw - Thank You Letter snw - Antibiotic Education snw - Prescription Opioid Use snw Prescriptions: - Zyrtec 10 mg Oral Tablet - take 1 tablet by ORAL route once daily As needed; 20 tablet; Refills: 0, snw Product Selection Permitted - Pepcid 20 mg Oral Tablet - take 1 tablet by ORAL route once daily; 20 tablet; Refills: 0, Product snw Selection Permitted Signatures: Dispatcher [employer] EDMS Laura Bassett, SEWER CONTRACTOR-C SEWER CONTRACTOR-Csnw Cynthia Reyez, RN RN Anne Mesa RN RN mb9
--- NOTE | 2022-03-26 14:03 | ER ---
Nurse's Notes [facility] Name: Terrence Monroy Age: 76 yrs Sex: Male : 1945 Arrival Date: 03/26/2022 Time: 10:34 Bed 9 Private MD: Diagnosis: Rash and other nonspecific skin eruption Presentation: 03/26 11:06 Chief complaint: Patient states: Itchy red rash to L flank, bilateral arms, and legs. ph Coronavirus screen: Vaccine status: Patient reports receiving the 2nd dose of the covid vaccine. Ebola Screen: No symptoms or risks identified at this time. Onset: The symptoms/episode began/occurred gradually. Anaphylaxis evaluation, the patient reports or I have noted the following symptoms which indicate a significant risk of anaphylaxis:. Initial Sepsis Screen: Does the patient meet any 2 criteria? No. Patient's initial sepsis screen is negative. Does the patient have a suspected source of infection? No. Patient's initial sepsis screen is negative. Risk Assessment: Do you want to hurt yourself or someone else? Patient reports no desire to harm self or others. Onset of symptoms was March 26, 2022. 11:06 Method Of Arrival: Ambulatory ph 11:06 Acuity: CARMEN 3 ph Historical: - Allergies: 11:08 Aspirin; ph 11:08 PENICILLINS; ph 11:08 Sulfa (Sulfonamide Antibiotics); ph 11:08 Tetanus-Diphtheria Toxoids-Td; ph - PMHx: 11:08 CHF; COPD; High Cholesterol; Hypertension; ph - Immunization history:: Adult Immunizations up to date. - Social history:: Smoking status: Patient denies any tobacco usage or history of. Screenin:05 [facility] ED Fall Risk Assessment (Adult) History of falling in the last 3 months, ph including since admission No falls in past 3 months (0 pts) Confusion or Disorientation No (0 pts) Intoxicated or Sedated No (0 pts) Impaired Gait No (0 pts) Mobility Assist Device Used No (0 pt) Altered Elimination No (0 pt) Score/Fall Risk Level 0 - 2 = Low Risk Oriented to surroundings, Maintained a safe environment, Hourly rounding (assess needs \\T\\ fall precautionary measures) done. Abuse screen: Denies threats or abuse. Denies injuries from another. Nutritional screening: No deficits noted. Tuberculosis screening: No symptoms or risk factors identified. Assessment: 12:24 General: Appears in no apparent distress. comfortable, Behavior is calm, cooperative, mb9 appropriate for age. Pain: Denies pain. Neuro: Boswell Agitation-Sedation Scale (RASS): 0 - Alert and Calm Level of Consciousness is awake, alert, obeys commands, Oriented to person, place, time, situation, none. Cardiovascular: Heart tones S1 S2 present Capillary refill < 3 seconds is brisk Patient's skin is warm and dry. Rhythm is regular. Respiratory: Airway is patent Respiratory effort is even, unlabored, Respiratory pattern is regular, symmetrical, Breath sounds are clear bilaterally. GI: Abdomen is round non-distended. : No signs and/or symptoms were reported regarding the genitourinary system. EENT: Dentures present. Throat is clear Reports "tightness of throat when drinking my coffee". Denies SOB and difficulty breathing. Derm: Rash noted that is red, urticaria, on chest, abdomen, right arm, left arm, right leg and left leg. Musculoskeletal: Range of motion: intact in all extremities. 12:38 Reassessment: pt taken to CT via wheelchair. mb9 13:30 Reassessment: No changes from previously documented assessment. Patient and/or family mb9 updated on plan of care and expected duration. Pain level reassessed. Patient is alert, oriented x 3, equal unlabored respirations, skin warm/dry/pink. Vital Signs: 11:06 BP 141 / 79; Pulse 85; Resp 18; Temp 98.2; Pulse Ox 96% on R/A; Weight 104.33 kg; ph Height 5 ft. 11 in. (180.34 cm); 14:09 BP 138 / 81; Pulse 71; Resp 14; Pulse Ox 98% on R/A; Pain 0/10; mb9 11:06 Body Mass Index 32.08 (104.33 kg, 180.34 cm) ph ED Course: 10:34 Patient arrived in ED. rg4 11:00 Kailey Salazar MD is Attending Physician. sp3 11:03 Cynthia Reyez, RN is Primary Nurse. ph 11:03 Laura Bassett FNP-C is PHCP. ph 11:08 Triage completed. ph 11:09 Arm band placed on Patient placed in an exam room. ph 12:06 Initial lab(s) drawn, by me, sent to lab. EKG done, by ED staff, reviewed by Laura em1 Danyelle HENRIQUEZ. Inserted saline lock: 20 gauge in right forearm, using aseptic technique. Blood collected. 12:45 CT Soft Tissue Neck W/contr In Process Unspecified. EDMS 13:08 XRAY Chest (1 view) In Process Unspecified. EDMS 14:00 Patient has correct armband on for positive identification. ph 14:03 Lloyd Dunn DO is Referral Physician. snw 14:30 No provider procedures requiring assistance completed. IV discontinued, intact, ph bleeding controlled, No redness/swelling at site. Pressure dressing applied. Administered Medications: 14:09 Drug: Pepcid (famotidine) 20 mg Route: IVP; Site: right forearm; mb9 14:30 Follow up: Response: No adverse reaction ph 14:09 Drug: ZyrTEC - Cetirizine 10 mg Route: PO; mb9 14:30 Follow up: Response: No adverse reaction ph Medication: 14:30 VIS not applicable for this client. ph Outcome: 14:03 Discharge ordered by . snw 14:32 Patient left the ED. ph 14:32 Discharged to home ambulatory. ph 14:32 Condition: good 14:32 Discharge instructions given to patient, significant other, Instructed on discharge instructions, follow up and referral plans. medication usage, Demonstrated understanding of instructions, follow-up care, medications, Prescriptions given X 2. Signatures: Dispatcher [employer] EDIN Laura Bassett FNP-C GREEN FEED ATTENDANT-Csnw Tin Acharya em1 Cynthia Reyez RN RN Keisha Matson 4 Kailey Salazar MD MD sp3 Anne Mesa RN RN mb9
[2022-03-26] MEDS ORDERED: CETIRIZINE HCL 5 MG TABLET ONE (14:08)
[2022-03-26] MEDS ORDERED: FAMOTIDINE 20 MG/2 ML VIAL IV ONE (14:08)
[2022-03-26 14:41] VITALS: TEMP 98.2
[2022-03-26 14:47] VITALS: BP 138/81; O2SAT 98
== END 2022-03-26 14:32 | disposition home or self-care (01) ==
LOC: ER 10:29
DX: R21 Rash and other nonspecific skin eruption (principal); I10 Essential (primary) hypertension; Z20.822 Contact with and (suspected) exposure to COVID-19; Z88.0 Allergy status to penicillin; Z88.2 Allergy status to sulfonamides; Z88.6 Allergy status to analgesic agent; Z88.7 Allergy status to serum and vaccine
CPT/HCPCS: 93005; 87070; 85025; 80048; 36415; 83735; 85610; 80076; 87081; 84484; 83880; 70491; 71045; 96374; 99284; 87811; Q9967

== ENCOUNTER 2022-04-02 12:34 | Emergency (ER) | payer OTHER ==
--- OUTSIDE RECORDS SUMMARY | 2022-04-02 12:40 | XMS REPORT | Continuity of Care Document ---
:1945 Author Organization [facility] t Address [address] [place] [address] Care Team Providers Name Role Phone Alissa Uribe DO Primary Care Physician Mejia Salazar Attending Clinician Unavailable Alissa Uribe Attending Clinician Unavailable David Gómez Attending Clinician CHRIS BALDWIN Attending Clinician Unavailable Alen-Mbayo_A_AH Attending Clinician Unavailable Alen-Mbayo_A_AH Admitting Clinician Unavailable Payers Payer Name Policy Type Policy Number Effective Date Expiration Date S [place] [employer] MEDICARE C1 [id number] 2020 [facility] evelin 00:00:00 - [facility] [employer] MEDICARE C1 [id number] 2020 Common Sp evelin 00:00:00 - [facility] [id number] 2019 - [employer] 00:00:00 (MEDICARE REPLACEMENT/ADV ANTAGE [...] 00 l claudicati claudicati on on Dizziness Problem Active 2022-01-06 Me moria and Dizziness 10-26 13:04:20 l giddiness and 00:00: Christofer (finding) giddiness 00 (finding) Active 10/26/2016 Problem 01/06/2022 [facility] 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 00:00: Herm sergey on malformati 00 (disorder) on (disorder) Active 12/17/2014 Problem 01/06/2022 [facility] Essential Essential Problem Active 2014-022022-01-06 Memoria hypertensi hypertensi 0 13:04:20 l on on 00:00: [place] (disorder) (disorder) 00 Active 12/17/2014 Problem 01/06/2022 [facility] Lumbosacra Lumbosacr Problem Active 2014-022022-01-06 Memoria l al 0 13:04:20 l spondylosi spondylosi 00:00: He rmann s without s without 00 myelopathy myelopathy (disorder) (disorder) Active 12/17/2014 Problem 01/06/2022 [facility] Headache Headache Problem Active 2022-01-06 Memoria (finding) (finding) 13:04:20 l Active Christofer Problem 01/06/2022 [facility] 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 13:04:20 l gagandeep Beaulieu (disorder) (disorder) Active Problem 01/06/2022 [facility] [id number] Acute Problem Common bronchitis Spirit , - [facility]I unspecifie [facility] [id number] Primary Problem 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 itis, - CHI right hand [facility] [id number] Primary Problem 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 itis, left - CHI hand [facility] [id number] Chronic Problem Common sinusitis, Spirit unspecifie - [facility]I d location [facility] [id number] Decreased Problem Com mon hearing of Spirit right ear - [facility]I [facility] [id number] Temporary Problem Com mon low Spirit platelet - [facility] count [facility] Hyperlipid Hyperlipid Problem C ommon emia emia [facility] Allergic Allergic Problem Commo n rhinitis rhinitis Spirit [facility] Lumbar Lumbar Problem Common radiculopa radiculopa Sp evelin thy thy [facility] Colonic Colonic Problem Common polyp polyp [facility] Anemia Anemia, Problem Common mild [facility] 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 Spir it on of lumbar - [facility] co-occurre region St [facility] spinal neurogenic Med ical stenosis claudicati Cent er of lumbar on region [id number] Pure Problem Common hyperchole [facility] sterolemia [facility] Plantar Plantar Problem Common fasciitis fasciitis Spir it - [facility] Computed Abnormal Problem Commo n tomography CT scan Spiri t result - [facility] abnormal [facility] [id number] Hospital Problem Comm on discharge [facility] follow-up [facility] [id number] Chronic Problem Common obstructiv [facility] e [facility] pulmonary [facility] unspecifie Medica l d COPD Center type [id number] Pneumonia, Problem Com mon primary Spirit atypical [facility] [id number] Fusion of Problem Com mon spine, Spirit lumbar - [facility] region [facility] [id number] Primary Problem Commo n osteoarthr Spirit itis of [facility] left hip [facility] Peripheral Peripheral Problem C ommon neuropathy neuropathy Sp evelin [facility] [id number] Seasonal Problem Comm on allergic Spirit rhinitis, - CHI unspecifie [facility] [id number] Pain of Problem Comm on [id number] left heel [facility] Hypertensi HTN Problem Commo n on (hypertens Spirit ion) [facility] Obesity Obesity Problem Common [facility] [id number] Left sided Problem Com mon sciatica [facility] [id number] Left hip Problem Commo n pain [facility] [id number] History of Problem Co mmon colon [facility] polyps [facility] [id number] BMI Problem Common 32.0-32.9, [facility] adult [facility] Allergies, Adverse Reactions, Alerts Allergy Allergy Status Severity Reaction(s) Onset Inactive Treating Comm ents Source Name Type Date Date Clinician Aspirin Propensi Active Methodi ty to 1-15 st adverse 00:00: Hospita reaction 00 l s to drug Penicill Propensi Active Method i amine ty to 1-15 st adverse 00:00: Hospita reaction 00 l s to drug Sulfur Propensi Active Methodi (Do Not ty to 1-15 st Use For adverse 00:00: Hospita Sulfa reaction 00 l Drugs) s to drug Tetanus Propensi Active Methodi Vaccines ty to 1-15 st And adverse 00:00: Hospita Toxoid reaction 00 l s to drug Penicill Penicill Active Unknown Commo n in in [facility] [id number] Drug Active hives Common allergy [facility] aspirin aspirin Active Memoria l Christofer tetanus tetanus Active Memoria toxoid toxoid l Christofer Family History Family Member Diagnosis Comments Start Date Stop Date Source Other Rheum arthritis [facility] Diabetes [facility] Other Heart disease [facility] Other Hypertension [facility] Social History Social Habit Start Date Stop Date Quantity Comments Source History of Tobacco [facility] - Use [facility] History [facility] Frequency Hospita l History SD[facility] Alcohol intake 2018-09-29 2018-09-29 Current drinker [facility] 00:00:00 00:00:00 of alcohol Hospital (finding) History SDOH 2018-09-25 2018-09-25 2 [facility] Alcohol Std Drinks 00:00:00 00:00:00 Hospit al Cigarettes smoked 2018-09-15 2018-09-[address] current (pack per 00:00:00 00:00:00 Hospita l day) - Reported Cigarette 2018-09-15 2018-09-15 [facility] pack-years 00:00:00 00:00:00 Hospital Alcohol Comment 2018-09-15 2018-09-15 rarely [facility] 00:00:00 00:00:00 Hospital Tobacco use and 2018-09-15 2018-09-15 Smokeless tobacco Me thodist exposure 00:00:00 00:00:00 non-user Hospital Sex Assigned At [birth year] [facility] 00:00[facility]00 00:00:00 Hospital Smoking Status Start Date Stop Date Source Never Smoker [facility] - [facility] nter Tobacco smoking status 2022-01-03 16:01:00 2022-01-03 [...] cap, 2 Herm sergey 00 Refill(s), Pharmacy: [facility], 180.34, cm, 01/03/22 10:21:00 HELP DESK INTERN, Height, 105, kg, 01/03/22 10:21:00 HELP DESK INTERN, Weight gabapentin 2021-02 Yes = 2 cap, Mem oria 300 mg oral 1-16 PO, BID, # l capsule 16:43: 360 cap, 2 Herm sergey 00 Refill(s), Pharmacy: [facility], 180.34, cm, 01/03/22 10:21:00 HELP DESK INTERN, Height, 105, kg, 01/03/22 10:21:00 HELP DESK INTERN, Weight Iron-150 2021-02 Yes 1 tab, PO, Mem oria oral tablet 1-16 Daily, 0 l 16:25: Refill(s) Iron-150 2021-02 Yes 1 tab, PO, Mem oria oral tablet 1-16 Daily, 0 l 16:25: Refill(s) Triamcinolo Triamcinolo No 1{appli BID Triamcinol ne [...] 00 cted_ar 0.1 % ea} Triamcinolo Triamcinolo 0 No 1{appli BID Triamcinol ne ne 9-16 cation_ one Acetonide Acetonide 00:00: to_affe Acetonide 0.1 % 0.1 % 00 cted_ar 0.1 % ea} Triamcinolo Triamcinolo 0 No 1{appli BID Triamcinol ne ne 9-16 cation_ one Acetonide Acetonide 00:00: to_affe Acetonide 0.1 % 0.1 % 00 cted_ar 0.1 % ea} Triamcinolo Triamcinolo 0 No 1{appli BID Triamcinol ne ne 9-16 cation_ one Acetonide Acetonide 00:00: to_affe Acetonide 0.1 % 0.1 % 00 cted_ar 0.1 % ea} Triamcinolo Triamcinolo 0 No 1{appli BID Triamcinol ne ne 9-16 [...] % 00 cted_ar 0.1 % ea} ferrous 2021-0 Yes 325 mg = 1 Roverto adryan sulfate 325 7-22 tab, PO, l mg oral 15:54: Daily, 0 Ayad n enteric 00 Refill(s) coated tablet ferrous Yes 325 mg = 1 Roverto adryan sulfate 325 7-22 tab, PO, l mg oral 15:54: Daily, 0 Ayad n enteric 00 Refill(s) coated tablet non-formula 0 Yes Vertigone, Memoria ry 7-22 Refill(s) l 15:42: 0 Christofer 00 non-formula 2021-0 Yes Vertigone, Memoria ry 7-22 Refill(s) l 15:42: 0 [place] 00 Azithromyci Azithromyci 2021-0 2022- No QD Azithromyc n 250 MG n 250 MG 04-25-13 in 250 MG 00:00: 00:00 00 :00 gabapentin 2020-0 Yes 600 mg = 2 M emoria 300 MG Oral 4-16 cap, PO, l Capsule 19:46: TID, # 540 Herm sergey 00 cap, 3 Refill(s), Pharmacy: [facility], 154.94, cm, 11/12/19 10:22:00 CDT, Height, 107.727, kg, 06/02/20 10:55:00 CDT, Weight gabapentin 2020-0 Yes 600 mg = 2 M emoria 300 MG Oral 4-16 cap, PO, l Capsule 19:46: TID, # 540 Herm sergey 00 cap, 3 Refill(s), Pharmacy: [facility], 154.94, cm, 11/12/19 10:22:00 CDT, Height, 107.727, kg, 06/02/20 10:55:00 CDT, Weight pravastatin 2020-0 Yes 40 mg = 1 M emoria 40 mg oral 4-15 tab, PO, l tablet 15:59: Bedtime, # Chari nn 00 30 tab, 0 Refill(s) pravastatin 2020-0 Yes 40 mg = 1 M emoria 40 mg oral 4-15 tab, PO, l tablet 15:59: Bedtime, # Chari nn 00 30 tab, 0 Refill(s) gabapentin 2020-0 Yes 600 mg = 2 M emoria 300 MG Oral 9-30 cap, PO, l Capsule 23:14: TID, # 540 Herm sergey 00 cap, 2 Refill(s), Pharmacy: [facility], 154.94, cm, 11/12/19 10:22:00 CDT, Height, 105.455, kg, 11/12/19 10:22:00 CDT, Weight gabapentin 2020-0 Yes 600 mg = 2 M emoria 300 MG Oral 9-30 cap, PO, l Capsule 23:14: TID, # 540 Herm sergey 00 cap, 2 Refill(s), Pharmacy: [facility], 154.94, cm, 11/12/19 10:22:00 CDT, Height, 105.455, kg, 11/12/19 10:22:00 CDT, Weight gabapentin 2020-0 Yes 300 mg = 1 M emoria 300 MG Oral 9-24 cap, PO, l Capsule 15:37: TID, # 270 Herm sergey 00 cap, 3 Refill(s), Pharmacy: [facility], 154.94, cm, 11/12/19 10:22:00 CDT, Height, 105.455, kg, 11/12/19 10:22:00 CDT, Weight gabapentin 2020-0 Yes 300 mg = 1 M emoria 300 MG Oral 9-24 cap, PO, l Capsule 15:37: TID, # 270 Herm sergey 00 cap, 3 Refill(s), Pharmacy: [facility], 154.94, cm, 11/12/19 10:22:00 CDT, Height, 105.455, kg, 11/12/19 10:22:00 CDT, Weight Montelukast Montelukast 2020-0 Yes Na Uribe 1 tablet Common Sodium Sodium 9-15 Spirit 00:00: - CHI 00 [facility] Montelukast Montelukast 2020-0 No 1{table Montelukas Sodium [...] MG 00:00: 10 MG 00 Ipratropium Ipratropium 2019-0 2021- No Na Uribe 2 sprays Common [place] 15 -13 in each Spiri t 00:00: 00:00 nostril - CHI 00 :00 [facility] gabapentin 2020-0 Yes 600 mg = 2 M emoria 300 MG Oral 3-24 cap, PO, l Capsule 16:30: TID, # 180 Herm sergey 00 cap, 4 Refill(s), Pharmacy: [facility] gabapentin 2020-0 Yes 600 mg = 2 M emoria 300 MG Oral 3-24 cap, PO, l Capsule 16:30: TID, # 180 Herm sergey 00 cap, 4 Refill(s), Pharmacy: [facility] gabapentin 2019- Yes = 1 cap, Mem oria 300 MG Oral 9-23 PO, BID, # l Capsule 16:20: 60 cap, 4 Chari nn 49 Refill(s), Pharmacy: [facility] gabapentin 2019-0 Yes = 1 cap, Mem oria 300 MG Oral 9-23 PO, BID, # l Capsule 16:20: 60 cap, 4 Chari nn 49 Refill(s), Pharmacy: [facility] lisinopril 2019-0 Yes 20mg QD Take 20 mg M ethodi (PRINIVIL,Z 8-[address] ESTRIL) 20 16:08: daily. Hospi ta mg tablet 21 l pravastatin 2019-0 Yes 40mg QD Take 40 mg Methodi (PRAVACHOL) 8-[address] 40 MG 16:08: daily. Hospita tablet 21 l DULoxetine 2018- Yes 30mg QD Take 30 mg M [...] Hospita 21 l gabapentin 2019-0 Yes 300mg Q.[id number] Take 300 Methodi (NEURONTIN) 8-11 [id number] mg by s t 300 mg 16:08: [...] Hospita 21 l gabapentin 2019-0 Yes 300mg Q.[id number] Take 300 Methodi (NEURONTIN) 8-11 [id number] mg by s t 300 mg 16:08: 3D mouth 3 Hospita capsule 21 (three) l times a day. fluticasone 2019-0 Yes into each M ethodi propionate 8-[address] (FLONASE 16:08: Hospita NASL) 21 l cetirizine 2019-0 Yes Take by Meth jnae HCl (ZYRTEC 8-[address] ORAL) 16:08: Hospita 21 l lisinopril 2019-0 Yes 20mg QD Take 20 mg M ethodi (PRINIVIL,Z 8-[address] ESTRIL) 20 16:08: daily. Hospi ta mg tablet 21 l pravastatin 2019- Yes 40mg QD Take 40 mg Methodi (PRAVACHOL) 8-[address] 40 MG 16:08: daily. Hospita tablet 21 l DULoxetine 2018- Yes 30mg QD Take 30 mg M [...] Hospita 21 l gabapentin 2019-0 Yes 300mg Q.[id number] Take 300 Methodi (NEURONTIN) 8-11 [id number] mg by s t 300 mg 16:08: 3D mouth 3 Hospita capsule 21 (three) l times a day. fluticasone 2019-0 Yes into each M ethodi propionate 8-[address] (FLONASE 16:08: Hospita NASL) 21 l cetirizine 2018-0 Yes Take by Meth jane HCl (ZYRTEC 8-[address] ORAL) 16:08: Hospita 21 l gabapentin 2019-0 Yes = 1 cap, Mem oria 300 MG Oral 5-15 PO, TID, # l Capsule 15:08: 90 cap, 4 Chari nn 37 Refill(s), Pharmacy: [facility] 8 gabapentin 0 Yes = 1 cap, Mem oria 300 MG Oral 5-15 PO, TID, # l Capsule 15:08: 90 cap, 4 Chari nn 37 Refill(s), Pharmacy: [facility] gabapentin 0 No = 1 cap, Mem oria 300 MG Oral 1-22 PO, TID, # l Capsule 18:41: 90 cap, 4 Chari nn 24 Refill(s), Pharmacy: [facility] gabapentin 0 No = 1 cap, Mem oria 300 MG Oral 1-22 PO, TID, # l Capsule 18:41: 90 cap, 4 Chari nn 24 Refill(s), Pharmacy: [facility] 8 gabapentin 2017-02 No = 1 cap, Mem oria 300 MG Oral 2-11 PO, l Capsule 14:45: Bedtime, # Herm sergey 16 30 unknown unit, Refill(s) 3, 03/11/18 12:41:24 HELP DESK INTERN, Pharmacy: [facility] gabapentin 2017-02 No = 1 cap, Mem oria 300 MG Oral 2-11 PO, l Capsule 14:45: Bedtime, # Herm sergey 16 30 unknown unit, Refill(s) 3, 03/11/18 12:41:24 HELP DESK INTERN, Pharmacy: [facility] gabapentin 2017-02 No 300 mg = 1 M emoria 300 MG Oral 0-15 cap, PO, l Capsule 18:36: Bedtime, # Herm sergey 00 30 cap, 3 Refill(s), Pharmacy: [facility] gabapentin 2017-02 No 300 mg = 1 M emoria 300 MG Oral 0-15 cap, PO, l Capsule 18:36: Bedtime, # Herm sergey 00 30 cap, 3 Refill(s), Pharmacy: [facility] lisinopril 2017-02 Yes 20 mg = 1 Me moria 20 mg oral 0-15 tab, PO, l tablet 18:34: Daily, # Christofer 00 30 tab, 0 Refill(s) lisinopril 2017-02 Yes 20 mg = 1 Me moria 20 mg oral 0-15 tab, PO, l tablet 18:34: Daily, # Christofer 00 30 tab, 0 Refill(s) Kenalog Kenalog 2018-0 No 40mg Common (Triamcinol (Triamcinol 2-08 S pirit one) one) 00:00: - CHI 00 [facility] Kenalog Kenalog 2018-0 No 40mg Common (Triamcinol (Triamcinol 2-08 S pirit one) one) 00:00: - CHI [facility] Kenalog Kenalog 2018-0 No 40mg Common (Triamcinol (Triamcinol 2-08 S pirit one) one) 00:00: - CHI [facility] Kenalog Kenalog 2018-0 No 40mg Common (Triamcinol (Triamcinol 2-08 S pirit one) one) 00:00: - CHI 00 [facility] Kenalog Kenalog 2018-0 No 40mg Common (Triamcinol (Triamcinol 2-08 S pirit one) one) 00:00: - CHI 00 [facility] Kenalog Kenalog 2018-0 No 40mg Common (Triamcinol (Triamcinol 2-08 S pirit one) one) 00:00: - CHI 00 [facility] Kenalog Kenalog 2018-0 No 40mg Common (Triamcinol (Triamcinol 2-08 S pirit one) one) 00:00: - CHI 00 [facility] Kenalog Kenalog 2018-0 No 40mg Common (Triamcinol (Triamcinol 2-08 S pirit one) one) 00:00: - CHI 00 [facility] Kenalog Kenalog 2018-0 No 40mg Common (Triamcinol (Triamcinol 2-08 S pirit one) one) 00:00: - CHI 00 [facility] Kenalog Kenalog 2018-0 No 40mg Common (Triamcinol (Triamcinol 2-08 S pirit one) one) 00:00: - CHI 00 [facility] Kenalog Kenalog 2018-0 No 40mg Common (Triamcinol (Triamcinol 2-08 S pirit one) one) 00:00: - CHI 00 [facility] Kenalog Kenalog 2018-0 No 40mg Common (Triamcinol (Triamcinol 2-08 S pirit one) one) 00:00: - CHI 00 [facility] Kenalog Kenalog 2018-0 No 40mg Common (Triamcinol (Triamcinol 2-08 S pirit one) one) 00:00: - CHI 00 [facility] Kenalog Kenalog 2018-0 No 40mg Common (Triamcinol (Triamcinol 2-08 S pirit one) one) 00:00: - CHI 00 [facility] Kenalog Kenalog 2018-0 No 40mg Common (Triamcinol (Triamcinol 2-08 S pirit one) one) 00:00: - CHI 00 [facility] Kenalog Kenalog 2018-0 No 40mg Common (Triamcinol (Triamcinol 2-08 S emery one) one) 00:00: - CHI 00 [facility] Duloxetine Duloxetine Yes Na Uribe TAKE ONE Common HCl HCl CAPSULE BY Spirit MOUTH AT - CHI BEDTIME [facility] Claritin Claritin Yes Na Uribe 1 capsule Common Spirit - CHI [facility] Gabapentin Gabapentin Yes Na Uribe 1 capsule Common Spirit CHI [facility] Pravastatin Pravastatin Yes Na Uribe TAKE ONE Common Sodium Sodium TABLET BY Spirit MOUTH ONCE - CHI DAILY AT [facility] Lisinopril Lisinopril Yes Na Uribe Take 1 Common tablet by Spirit mouth once - CHI daily [facility] Pravastatin Pravastatin No Pravastati Sodium 40MG Sodium [...] Sodium 40MG Sodium 40MG n Sodium 40MG Claritin 10 Claritin 10 No 1{capsu QD Claritin MG MG le} 10 MG DULoxetine DULoxetine No 1{capsu QD DULoxetine HCl 30MG HCl 30MG le} HCl 30MG Mupirocin 2 Mupirocin 2 No 1{appli BID Mupirocin % % cation} 2 % Lisinopril Lisinopril No Lisinopril 20MG 20MG 20MG Gabapentin Gabapentin No 2{capsu TID Gabapentin 300 MG 300 MG le} 300 MG Pravastatin Pravastatin No Pravastati Sodium 40MG [...] [facility] OVER 65 OVER 65 10:19:00 - [facility] FLUZONE HIGH DOSE FLUZONE HIGH DOSE 2021-10-24 Completed [facility] OVER 65 OVER 65 10:19:00 - [facility] FLUZONE HIGH DOSE FLUZONE HIGH DOSE 2021-10-24 Completed [facility] OVER 65 OVER 65 10:19:00 - [facility] FLUZONE HIGH DOSE FLUZONE HIGH DOSE 2021-10-24 Completed [facility] OVER 65 OVER 65 10:19:00 - [facility] FLUZONE HIGH DOSE FLUZONE HIGH DOSE 2021-10-24 Completed [facility] OVER 65 OVER 65 10:19:00 - [facility] FLUZONE HIGH DOSE FLUZONE HIGH DOSE 2021-10-24 Completed [facility] OVER 65 OVER 65 10:19:00 - [facility] FLUZONE HIGH DOSE FLUZONE HIGH DOSE 2021-10-24 Completed [facility] OVER 65 OVER 65 10:19:00 - [facility] FLUZONE HIGH DOSE FLUZONE HIGH DOSE 2021-10-24 Completed [facility] OVER 65 OVER 65 10:19:00 [facility] FLUZONE HIGH DOSE FLUZONE HIGH DOSE 2021-10-24 Completed [facility] OVER 65 OVER 65 10:19:00 - [facility] COVID19 [facility] COVID19 2021-10-24 Completed Co mmon Spirit Vaccine (Low Dose Vaccine (Low Dose 10:17:00 [facility]oster[facility] [address] COVID19 2021-10-24 Completed Co mmon [facility] Vaccine (Low Dose Vaccine (Low Dose 10:17:00 [facility] Booster[facility] [address] COVID19 2021-10-24 Completed Co mmon [facility] Vaccine (Low Dose Vaccine (Low Dose 10:17:00 [facility] Booster) [facility] [address] COVID19 2021-10-24 Completed Co mmon [facility] Vaccine (Low Dose Vaccine (Low Dose 10:17:00 [facility] Booster) [facility] [address] COVID19 2021-10-24 Completed Co mmon [facility] Vaccine (Low Dose Vaccine (Low Dose 10:17:00 [facility] Booster) [facility] [address] COVID19 2021-10-24 Completed Co mmon [facility] Vaccine (Low Dose Vaccine (Low Dose 10:17:00 [facility] Booster) [facility] [address] COVID19 2021-10-24 Completed Co mmon [facility] Vaccine (Low Dose Vaccine (Low Dose 10:17:00 [facility] Booster[facility] COVID19 [facility] COVID19 2021-10-24 Completed Co mmon [facility] Vaccine (Low Dose Vaccine (Low Dose 10:17:00 [facility] Booster[facility] [address] COVID19 2021-10-24 Completed Co mmon [facility] Vaccine (Low Dose Vaccine (Low Dose 10:17:00 [facility] 2020-[facility]-14 Completed [facility] 14:12:00 - [facility] Td Td 2020-06-14 Completed [facility] 14:12:00 [facility] Td Td 2020-06-14 Completed [facility] 14:12:00 [facility] Td Td 2020-06-14 Completed [facility] 14:12:00 [facility] Td Td 2020-06-14 Completed [facility] 14:12:00 [facility] Td Td 2020-06-14 Completed [facility] 14:12:00 [facility] Td Td 2020-06-14 Completed [facility] 14:12:00 [facility] Td Td 2020-06-14 Completed [facility] 14:12:00 [facility] Td Td 2020-06-14 Completed [facility] 14:12:00 [facility] Td Td 2020-06-14 Completed [facility] 14:12:00 [facility] Td Td 2020-06-14 Completed [facility] 14:12:00 [facility] Td Td 2020-06-14 Completed [facility] 14:12:00 [facility] Td Td 2020-06-14 Completed [facility] 14:12:00 [facility] Td Td 2020-06-14 Completed [facility] 14:12:00 [facility] Td Td 2020-06-14 Completed [facility] 14:12:00 [facility] Td Td 2020-06-14 Completed [facility] 14:12:00 [facility] Td Td 2020-06-14 Completed [facility] 14:12:00 [facility] Td Td 2020-06-14 Completed [facility] 14:12:00 [facility] Td Td 2020-06-14 Completed [facility] 14:12:00 [facility] Td Td 2020-06-14 Completed [facility] 14:12:00 [facility] Fluzone Fluzone 2019-10-26 Completed [facility] 09:38:00 [facility] Fluzone Fluzone 2019-10-26 Completed [facility] 09:38:00 - [facility] Fluzone Fluzone 2019-10-26 Completed [facility] 09:38:00 - [facility] Fluzone Fluzone 2019-10-26 Completed [facility] 09:38:00 - [facility] Fluzone Fluzone 2019-10-26 Completed [facility] 09:38:00 - [facility] Fluzone Fluzone 2019-10-26 Completed [facility] 09:38:00 - [facility] Fluzone Fluzone 2019-10-26 Completed [facility] 09:38:00 - [facility] Fluzone Fluzone 2019-10-26 Completed [facility] 09:38:00 - [facility] Fluzone Fluzone 2019-10-26 Completed [facility] 09:38:00 - [facility] Fluzone Fluzone 2019-10-26 Completed [facility] 09:38:00 - [facility] Fluzone Fluzone 2019-10-26 Com[facility] 09:38:00 - [facility] Fluzone Fluzone 2019-10-26 Completed [facility] 09:38:00 - [facility] Fluzone Fluzone 2019-10-26 Completed [facility] 09:38:00 - [facility] Fluzone Fluzone 2019-10-26 Completed [facility] 09:38:00 - [facility] Fluzone Fluzone 2019-10-26 Completed [facility] 09:38:00 - [facility] Fluzone Fluzone 2019-10-26 Completed [facility] 09:38:00 [facility] Fluzone Fluzone 2019-10-26 Completed [facility] 09:38:00 [facility] Fluzone Fluzone 2019-10-26 Completed [facility] 09:38:00 - [facility] Fluzone Fluzone 2019-10-26 Completed [facility] 09:38:00 [facility] Fluzone Fluzone 2019-10-26 Completed [facility] 09:38:00 - [facility] FLUZONE HIGH DOSE FLUZONE HIGH DOSE 2018-11-03 Completed [facility] OVER 65 OVER 65 08:03:00 - [facility] FLUZONE HIGH DOSE FLUZONE HIGH DOSE 2018-11-03 Completed [facility] OVER 65 OVER 65 08:03:00 - [facility] FLUZONE HIGH DOSE FLUZONE HIGH DOSE 2018-11-03 Completed [facility] OVER 65 OVER 65 08:03:00 - [facility] FLUZONE HIGH DOSE FLUZONE HIGH DOSE 2018-11-03 Completed [facility] OVER 65 OVER 65 08:03:00 - [facility] FLUZONE HIGH DOSE FLUZONE HIGH DOSE 2018-11-03 Completed [facility] OVER 65 OVER 65 08:03:00 - [facility] FLUZONE HIGH DOSE FLUZONE HIGH DOSE 2018-11-03 Completed [facility] OVER 65 OVER 65 08:03:00 - [facility] FLUZONE HIGH DOSE FLUZONE HIGH DOSE 2018-11-03 Completed [facility] OVER 65 OVER 65 08:03:00 - [facility] FLUZONE HIGH DOSE FLUZONE HIGH DOSE 2018-11-03 Completed [facility] OVER 65 OVER 65 08:03:00 - [facility] FLUZONE HIGH DOSE FLUZONE HIGH DOSE 2018-11-03 Completed [facility] OVER 65 OVER 65 08:03:00 - [facility] FLUZONE HIGH DOSE FLUZONE HIGH DOSE 2018-11-03 Completed [facility] OVER 65 OVER 65 08:03:00 - [facility] FLUZONE HIGH DOSE FLUZONE HIGH DOSE 2018-11-03 Completed [facility] OVER 65 OVER 65 08:03:00 - [facility] FLUZONE HIGH DOSE FLUZONE HIGH DOSE 2018-11-03 Completed [facility] OVER 65 OVER 65 08:03:00 - [facility] FLUZONE HIGH DOSE FLUZONE HIGH DOSE 2018-11-03 Completed [facility] OVER 65 OVER 65 08:03:00 - [facility] FLUZONE HIGH DOSE FLUZONE HIGH DOSE 2018-11-03 Completed [facility] OVER 65 OVER 65 08:03:00 - [facility] FLUZONE HIGH DOSE FLUZONE HIGH DOSE 2018-11-03 Completed [facility] OVER 65 OVER 65 08:03:00 - [facility] FLUZONE HIGH DOSE FLUZONE HIGH DOSE 2018-11-03 Completed [facility] OVER 65 OVER 65 08:03:00 - [facility] FLUZONE HIGH DOSE FLUZONE HIGH DOSE 2018-11-03 Completed [facility] OVER 65 OVER 65 08:03:00 - [facility] FLUZONE HIGH DOSE FLUZONE HIGH DOSE 2018-11-03 Completed [facility] OVER 65 OVER 65 08:03:00 - [facility] FLUZONE HIGH DOSE FLUZONE HIGH DOSE 2018-11-03 Completed [facility] OVER 65 OVER 65 08:03:00 - [facility] FLUZONE HIGH DOSE FLUZONE HIGH DOSE 2018-11-03 Completed [facility] OVER 65 OVER 65 08:03:00 - [facility] Kenalog Kenalog 2017-03-28 Completed [facility] (Triamcinolone) (Triamcinolone) 15:52:00 [facility] Vital Signs Vital Name Observation Time Observation Value Comments Source height 2022-02-14 15:40:00 72 [in_i] [facility] weight 2022-02-14 15:40:00 234.0 [lb_av] [facility] temperature 2022-02-14 15:40:00 97.2 [degF] [facility] bmi 2022-02-14 15:40:00 31.73 kg/m2 [facility] oximetry 2022-02-14 15:40:00 98 % [facility] respiratory rate 2022-02-14 15:40:00 17 /min [facility] on [facility] blood pressure 2022-02-14 15:40:00 125 mm[Hg] Common [facility] - systolic [facility] blood pressure 2022-02-14 15:40:00 71 mm[Hg] [facility] - diastolic [facility] height 2022-01-04 14:20:00 72 [in_i] [facility] weight 2022-01-04 14:20:00 229 [lb_av] [facility] bmi 2022-01-04 14:20:00 31.05 kg/m2 [facility] height 2021-12-01 08:20:00 72 [in_i] [facility] weight 2021-12-01 08:20:00 229.6 [lb_av] Common [facility] temperature 2021-12-01 08:20:00 97.9 [degF] [facility] bmi 2021-12-01 08:20:00 31.14 kg/m2 Common [facility] oximetry 2021-12-01 08:20:00 97 % [facility] respiratory rate 2021-12-01 08:20:00 15 /min Comm on [facility] blood pressure 2021-12-01 08:20:00 127 mm[Hg] Common [facility] - systolic [facility] blood pressure 2021-12-01 08:20:00 71 mm[Hg] [facility] - diastolic [facility] height 2021-05-30 08:20:00 72 [in_i] Common [facility] weight 2021-05-30 08:20:00 235 [lb_av] [facility] temperature 2021-05-30 08:20:00 97.7 [degF] [facility] bmi 2021-05-30 08:20:00 31.87 kg/m2 [facility] oximetry 2021-05-30 08:20:00 96 % [facility] respiratory rate 2021-05-30 08:20:00 18 /min [facility] on [facility] blood pressure 2021-05-30 08:20:00 133 mm[Hg] Common [facility] - systolic [facility] blood pressure 2021-05-30 08:20:00 68 mm[Hg] [facility] - diastolic [facility] height 2021-04-25 12:00:00 72 [in_i] [facility] weight 2021-04-25 12:00:00 232 [lb_av] Common [facility] bmi 2021-04-25 12:00:00 31.46 kg/m2 [facility] weight 2020-11-29 08:00:00 232 [lb_av] [facility] temperature 2020-11-29 08:00:00 97.2 [degF] [facility] bmi 2020-11-29 08:00:00 31.46 kg/m2 [facility] oximetry 2020-11-29 08:00:00 95 % [facility] respiratory rate 2020-11-29 08:00:00 19 /min [facility] blood pressure 2020-11-29 08:00:00 131 mm[Hg] [facility] - systolic [facility] blood pressure 2020-11-29 08:00:00 68 mm[Hg] [facility] - diastolic [facility] height 2020-11-29 08:00:00 72.00 [in_i] [facility] Systolic (mm Hg) 2022-01-03 16:00:00 [facility] [place] Diastolic (mm Hg) 2022-01-03 16:00:00 Mem o[facility] Heart Rate 2022-01-03 16:00:[address] [facility] Height 2022-01-03 16:00:00 5 [ft_i] [facility] Weight 2022-01-03 16:00:[address] [facility] BMI Calculated 2022-01-03 16:00:00 [facility]ori [facility] Systolic (mm Hg) 2021-09-08 15:40:00 [facility] [place] Diastolic (mm Hg) 2021-09-08 15:40:00 Mem orial [place] Heart Rate 2021-09-08 15:40:[address] [facility] Respitory Rate 2021-09-08 15:40:00 [facility] [place] Height 2021-09-08 15:40:00 180.34 cm [facility] Weight 2021-09-08 15:40:00 [facility] BMI Calculated 2021-09-08 15:40:00 [facility] [place] Systolic (mm Hg) 2021-08-08 18:58:00 [facility] [place] Diastolic (mm Hg) 2021-08-08 18:58:00 Mem [facility] [place] Heart Rate 2021-08-08 18:58:00 [facility] Respitory Rate 2021-08-08 18:58:00 [facility] Height 2021-08-08 18:58:00 180.34 cm [facility] Weight 2021-08-08 18:58:00 [facility] BMI Calculated 2021-08-08 18:58:00 [facility] [place] Systolic (mm Hg) 2021-03-09 16:47:00 [facility]to [facility] [place] Diastolic (mm Hg) 2021-03-09 16:47:00 [facility] [place] Heart Rate 2021-03-09 16:47:00 [facility] Respitory Rate 2021-03-09 16:47:00 [facility] [place] Height 2021-03-09 16:47:00 180.34 cm [facility] Weight 2021-03-09 16:47:00 [facility] BMI Calculated 2021-03-09 16:47:00 [facility] [place] Systolic (mm Hg) 2020-06-02 15:55:00 [facility] [place] Diastolic (mm Hg) 2020-06-02 15:55:00 [facility] [place] Heart Rate 2020-06-02 15:55:00 [facility] Respitory Rate 2020-06-02 15:55:00 [facility] [place] Weight 2020-06-02 15:55:00 [facility] Systolic (mm Hg) 2019-11-12 15:22:00 [facility] [place] Diastolic (mm Hg) 2019-11-12 15:22:00 [facility] [place] Heart Rate 2019-11-12 15:22:00 [facility] Respitory Rate 2019-11-12 15:22:00 [facility] [place] Height 2019-11-12 15:22:00 154.94 cm [facility] Weight 2019-11-12 15:22:00 [facility] BMI Calculated 2019-11-12 15:22:00 [facility] [place] Systolic (mm Hg) 2019-05-12 15:58:00 Roverto rial [place] Diastolic (mm Hg) 2019-05-12 15:58:00 [facility] [place] Heart Rate 2019-05-12 15:58:00 [facility] Respitory Rate 2019-05-12 15:58:00 [facility] Height 2019-05-12 15:58:00 180.34 cm [facility] Weight 2019-05-12 15:58:00 [facility] BMI Calculated 2019-05-12 15:58:00 [facility] Systolic (mm Hg) 2018-11-10 16:03:00 [facility] [place] Diastolic (mm Hg) 2018-11-10 16:03:00 Mem orial [facility] Heart Rate 2018-11-10 16:03:00 [facility] Respitory Rate 2018-11-10 16:03:00 [facility] [place] Height 2018-11-10 16:03:00 180.34 cm [facility] Weight 2018-11-10 16:03:00 [facility] BMI Calculated 2018-11-10 16:03:00 [facility] BMI Calculated 2018-07-02 14:22:00 [facility] Weight 2018-07-02 14:22:00 [facility] Height 2018-07-02 14:22:00 177.8 cm [facility] Heart Rate 2018-07-02 14:22:00 [facility] Respitory Rate 2018-07-02 14:22:00 [facility] [place] Systolic (mm Hg) 2018-07-02 14:22:00 [facility] [place] Diastolic (mm Hg) 2018-07-02 14:22:00 Mem [facility] [place] Weight 2017-12-31 17:56:00 [facility] Height 2017-12-31 17:56:00 182.88 cm [facility] BMI Calculated 2017-12-31 17:56:00 [facility] Heart Rate 2017-12-31 17:56:00 [facility] Respitory Rate 2017-12-31 17:56:00 [facility] Systolic (mm Hg) 2017-12-31 17:56:00 [facility] Diastolic (mm Hg) 2017-12-31 17:56:00 [facility] [place] BMI Calculated 2017-12-02 18:08:00 [facility] Weight 2017-12-02 18:08:00 [facility] Height 2017-12-02 18:08:00 180.34 cm [facility] Heart Rate 2017-12-02 18:08:00 [facility] Systolic (mm Hg) 2017-12-02 18:08:00 [facility]over[facility] Diastolic (mm Hg) 2017-12-02 18:08:00 [facility] Procedure Date / Time Performed Performing Clinician [facility] e Lumbar spinal fusion [facility] Plan of Care Planned Activity Planned Date Details Comments Source Future Scheduled 2022-03-04 COVID-19 VACCINE (#1) [facility] Test 21:27:28 [code = COVID-19 VACCINE (#1)] Future Scheduled 2022-03-04 Hepatitis C screening [facility] Test 21:27:28 (procedure) [code = 333110827] Future Scheduled 2022-03-04 SHINGLES VACCINES (1 [facility] Test 21:27:28 of 2) [code = SHINGLES VACCINES (1 of 2)] Future Scheduled 2022-03-04 65+ [facility]OCOCCAL [facility] Test 21:27:28 VACCINE (1 - PCV) [code = 65+ PNEUMOCOCCAL VACCINE (1 - PCV)] Future Scheduled 2022-03-04 INFLUENZA VACCINE Method [facility] Hospital Test 21:27:28 [code = INFLUENZA VACCINE] Future Scheduled 2022-03-04 COVID-19 VACCINE (#1) [facility] Test 21:27:28 [code = COVID-19 VACCINE (#1)] Future Scheduled 2022-03-04 Hepatitis C screening [facility] Test 21:27:28 (procedure) [code = [id number]] Future Scheduled 2022-03-04 SHINGLES VACCINES (1 [facility] Test 21:27:28 of 2) [code = SHINGLES VACCINES (1 of 2)] Future Scheduled 2022-03-04 65+ [facility]UMOCOCCAL [facility] Test 21:27:28 VACCINE (1 - PCV) [code = 65+ PNEUMOCOCCAL VACCINE (1 - PCV)] Future Scheduled 2022-03-04 INFLUENZA VACCINE [facility] Test 21:27:28 [code = INFLUENZA VACCINE] Future Scheduled 2021-12-22 HEPATITIS B VACCINES [facility] Test 09:19:05 (1 of 3 - 3-dose series) [code = HEPATITIS B VACCINES (1 of 3 - 3-dose series)] Future Scheduled 2021-12-22 COVID-19 VACCINE (#1) [facility] Test 09:19:05 [code = COVID-19 VACCINE (#1)] Future Scheduled 2021-12-22 Hepatitis C screening [facility] Test 09:19:05 (procedure) [code = [id number]] Future Scheduled 2021-12-22 SHINGLES VACCINES (1 [facility] Test 09:19:05 of 2) [code = SHINGLES VACCINES (1 of 2)] Future Scheduled 2021-12-22 65+ PNEUMOCOCCAL [facility] Test 09:19:05 VACCINE (1 - PCV) [code = 65+ PNEUMOCOCCAL VACCINE (1 - PCV)] Future Scheduled 2021-12-22 INFLUENZA VACCINE Method [facility] Hospital Test 09:19:05 [code = INFLUENZA VACCINE] Encounters Start End Encounter Admission Attending Care Care Encounter Source Date/Time Date/Time Type Type Clinicians Facility Department ID 2022-03-28 Outpatient Salazar, STLMLC STLMLC [id number] Common 14:03:00 [facility] [id number] [facility] 2022-02-01 Outpatient Uribe, Na STLMLC STLMLC [id number] 2 Common 14:53:00 [facility] 2022-01-31 Outpatient Uribe, Na STLMLC STLMLC [id number] 2 Common 09:46:00 [facility] 2022-01-04 Outpatient Uribe, Na STLMLC STLMLC [id number] 2 Common 08:54:01 [facility] 2022-01-03 Outpatient Uribe, Na STLMLC STLMLC [id number] 2 Common 15:07:00 [facility] 2022-01-02 Outpatient Uribe, Na STLMLC STLMLC [id number] 2 Common 15:52:00 [facility] 2021-05-26 Outpatient Uribe, Na STLMLC STLMLC [id number] 2 Common 10:31:00 [facility] 2021-04-25 Outpatient Uribe, Na STLMLC STLMLC [id number] 2 Common 11:00:01 [facility] 2021-03-15 Outpatient Uribe, Na STLMLC STLMLC [id number] 2 Common 13:58:48 [id number] [facility] 2021-03-15 Outpatient Uribe, Na STLMLC STLMLC [id number] 2 Common 13:58:27 [id number] [facility] 2021-03-15 Outpatient Uribe, Na STLMLC STLMLC [id number] 2 Common 12:50:58 [id number] [facility] 2021-03-15 Outpatient Uribe, Na STLMLC STLMLC [id number] 2 Common 12:50:38 [id number] [facility] 2021-03-15 Outpatient Uribe, Na STLMLC STLMLC [id number] 2 Common 12:36:11 [id number] [facility] 2021-03-15 Outpatient Uribe, Na STLMLC STLMLC [id number] 2 Common 12:35:21 [id number] [facility] 2021-03-15 Outpatient Uribe, Na STLMLC STLMLC [id number] 2 Common 12:32:30 [id number] [facility] 2021-03-15 Outpatient Uribe, Na STLMLC STLMLC [id number] 2 Common 11:54:17 [id number] [facility] 2021-03-15 Outpatient Uribe, Na STLMLC STLMLC [id number] 2 Common 11:53:36 [id number] [facility] 2021-03-15 Outpatient Uribe, Na STLMLC STLMLC [id number] 2 Common 11:49:06 [id number] [facility] 2021-03-15 Outpatient Uribe, Na STLMLC STLMLC [id number] 2 Common 11:45:59 [id number] [facility] 2021-03-15 Outpatient Uribe, Na STLMLC STLMLC [id number] 2 Common 11:06:01 [id number] [facility] 2022-07-03 2022-07-03 Outpatient MHIE MHIE [id number] Memoria 10:45:00 10:45:00 18 cuco Beaul[place] 2022-07-03 2022-07-03 Outpatient MHIE MHIE [id number] Memoria 10:45:00 10:45:00 18 cuco Beaul[place] 2022-03-28 2022-03-28 (TEL) STLMLC STLMLC [id number] Co mmon 00:00:00 00:00:00 [facility] 2022-03-07 2022-03-07 (TEL) STLMLC STLMLC [id number] Co mmon 00:00:00 00:00:00 [facility] 2022-03-07 2022-03-07 (TEL) STLMLC STLMLC [id number] Co mmon 00:00:00 00:00:00 [facility] 2022-02-14 2022-02-14 OFFICE STLMLC STLMLC [id number] Co mmon 00:00:00 00:00:00 VISIT EST Spir it PT LEVEL 3 [facility] 2022-02-13 2022-02-13 (TEL) STLMLC STLMLC [id number] Co mmon 00:00:00 00:00:00 [facility] 2022-02-02 2022-02-02 OFFICE STLMLC STLMLC [id number] Co mmon 00:00:00 00:00:00 VISIT EST Spir it PT LEVEL 3 [facility] 2022-01-03 2022-01-04 Outpatient MHIE MNA [id number] Memoria 16:15:00 05:59:59 Neurology 17 l Tal Beaulieu 2022-01-03 2022-01-04 Outpatient MHIE MNA [id number] Memoria 16:15:00 05:59:59 Neurology 17 l Tal [place] 2022-01-04 2022-01-04 OFFICE STLMLC STLMLC [id number] Co mmon 00:00:00 00:00:00 VISIT EST Spir it PT LEVEL 3 - [facility]I [facility] 2022-01-03 2022-01-03 Outpatient GRACE GómezSCHSÁNCHEZ CHASESCHER [id number] 10:15:00 23:59:59 David 17 Salo 2022-01-03 2022-01-03 Outpatient MHIE MHIE [id number] Memoria 10:15:00 10:15:00 17 cuco [place]ul[place] 2021-12-01 2021-12-01 OFFICE STLMLC STLC [id number] Co mmon 00:00:00 00:00:00 VISIT [facility] PT - CHI LEVEL 4 [facility] 2021-11-02 2021-11-02 [facility] [id number] Co mmon 00:00:00 00:00:00 [facility] 2021-09-08 2021-09-09 Outpatient nullFlavo MNA [id number] Memoria 15:45:00 04:59:59 r Neurology 16 cuco Dyerann 2021-09-08 2021-09-09 Outpatient nullFlavo MNA [id number] Memoria 15:45:00 04:59:59 r Neurology 16 cuco Dyerann 2021-09-08 2021-09-08 Outpatient GRACE GómezSCHER MISCHER [id number] 10:45:00 23:59:59 David 16 Slao 2021-09-08 2021-09-08 Outpatient MHIE MHIE [id number] Memoria 10:45:00 10:45:00 16 cuco [place] 2021-08-28 2021-08-28 [facility]EL) [facility] [id number] Co mmon 00:00:00 00:00:00 [facility] 2021-08-08 2021-08-09 Outpatient nullFlavo MNA [id number] Memoria 19:00:00 04:59:59 r Neurology 15 cuco Beaul[place] 2021-08-08 2021-08-09 Outpatient nullFlavo MNA [id number] Memoria 19:00:00 04:59:59 r Neurology 15 cuco Dyerann 2021-08-08 2021-08-08 [id number] 14:00:00 23:59:59 David Larry Leong 2021-08-08 2021-08-08 Outpatient AARTISURAJ AARTISURAJ [id number] Memoria 14:00:00 14:00:00 15 cuco [place] 2021-08-01 2021-08-01 (TEL) STLMLC STLMLC [id number] Co mmon 00:00:00 00:00:00 [facility] 2021-06-20 2021-06-20 (TEL) STLMLC STLMLC [id number] Co mmon 00:00:00 00:00:00 [facility] 2021-05-30 2021-05-30 OFFICE STLMLC STLMLC [id number] Co mmon 00:00:00 00:00:00 VISIT EST Spir it PT LEVEL 3 [facility] 2021-05-22 2021-05-22 (TEL) STLMLC STLMLC [id number] Co mmon 00:00:00 00:00:00 [facility] 2021-04-25 2021-04-25 (TEL) STLMLC STLMLC [id number] Co mmon 00:00:00 00:00:00 [facility] 2021-04-25 2021-04-25 OL DIG E/M STLMLC STLMLC [id number] Common 00:00:00 00:00:00 [facility] 11-20 Spir it MIN [facility] 2021-03-31 2021-03-31 (TEL) STLMLC STLMLC [id number] Co mmon 00:00:00 00:00:00 [facility] 2021-03-28 2021-03-28 (TEL) STLMLC STLMLC [id number] Co mmon 00:00:00 00:00:00 [facility] 2021-03-09 2021-03-10 Outpatient nullFlavo MNA [id number] Memoria 16:45:00 05:59:59 r Neurology 14 l Tal Beaulieu 2021-03-09 2021-03-10 Outpatient nullFlavo MNA [id number] Memoria 16:45:00 05:59:59 r Neurology 14 cuco Beaulieu 2021-03-09 2021-03-09 Outpatient AARTI GómezMISCHER MISCHER [id number] 10:45:00 23:59:59 David 14 Salo 2021-03-09 2021-03-09 Outpatient MHIE MHIE [id number] Memoria 10:45:00 10:45:00 14 cuco [place]ul[place] 2020-12-13 2020-12-13 (TEL) STLMLC STLMLC [id number] Co mmon 00:00:00 00:00:00 [facility] 2020-11-29 2020-11-29 OFFICE STLMLC STLMLC [id number] Co mmon 00:00:00 00:00:00 VISIT [facility] 4 [facility] 2020-10-11 2020-10-11 Outpatient STLMLC STLMLC [id number] Common 00:00:00 00:00:00 [facility] 2020-06-14 2020-06-14 Outpatient STLMLC STLMLC [id number] Common 00:00:00 00:00:00 [facility] 2020-06-02 2020-06-03 Outpatient nullFlavo MNA [id number] Memoria 15:45:00 04:59:59 r Neurology 13 l Tal Beaul[place] 2020-06-02 2020-06-03 Outpatient nullFlavo MNA [id number] Memoria 15:45:00 04:59:59 r Neurology 13 cuco Beaulieu 2020-06-02 2020-06-02 Outpatient Dal[facility] [id number] 10:45:00 23:59:59 David 13 Salo 2020-06-02 2020-06-02 Outpatient MHIE MHIE [id number] Memoria 10:45:00 10:45:00 13 cuco Beaul[place] 2020-05-31 2020-05-31 Outpatient STLMLC STLMLC [id number] Common 00:00:00 00:00:00 [facility] 2020-05-11 2020-05-11 Ambulatory nullFlavo MNA [id number] Memoria 15:00:00 15:00:00 Pre-Reg r Neurology 12 l Tal Beaulieu 2020-05-11 2020-05-11 Ambulatory nullFlavo MNA [id number] Memoria 15:00:00 15:00:00 Pre-Reg r Neurology 12 l Tal Beaulieu 2020-05-11 2020-05-11 Outpatient MHIE IE [id number] Memoria 10:00:00 10:00:00 12 l Christofer 2020-05-11 2020-05-11 Outpatient [facility] [id number] 10:00:00 10:00:00 Davidcharleen Leong 2020-04-19 2020-04-19 Outpatient STLMLC STLMLC [id number] Common 00:00:00 00:00:00 [facility] 2020-04-19 2020-04-19 Outpatient STLMLC STLMLC [id number] Common 00:00:00 00:00:00 [facility] 2020-04-12 2020-04-12 Outpatient STLMLC STLMLC [id number] Common 00:00:00 00:00:00 [facility] 2019-12-18 2019-12-18 Outpatient STLMLC STLMLC [id number] Common 00:00:00 00:00:00 [facility] 2019-12-03 2019-12-03 Outpatient STLMLC STLMLC [id number] Common 00:00:00 00:00:00 [facility] 2019-12-01 2019-12-01 Outpatient STLMLC STLMLC [id number] Common 00:00:00 00:00:00 [facility] 2019-11-26 2019-11-26 [facility] [id number] [address] [place] [address] 00:00:00 00:00:00 CHRIS wheatley 2019-11-12 2019-11-13 Outpatient nullFlavo MNA [id number] Memoria 15:15:00 04:59:59 r Neurology 11 l Tal Christofer 2019-11-12 2019-11-13 Outpatient nullFlavo MNA [id number] Memoria 15:15:00 04:59:59 r Neurology 11 l Tal Beaul[place] 2019-11-12 2019-11-12 [facility] [id number] 10:15:00 23:59:59 David 11 Salo 2019-11-12 2019-11-12 Ambulatory nullFlavo MNA [id number] Memoria 15:15:00 15:15:00 Pre-Reg r Neurology 10 l Tal [place] 2019-11-12 2019-11-12 Ambulatory nullFlavo MNA [id number] Memoria 15:15:00 15:15:00 Pre-Reg r Neurology 10 l Tal [place] 2019-11-12 2019-11-12 Outpatient MHIE MHIE [id number] Memoria 10:15:00 10:15:00 11 l [place] 2019-11-12 2019-11-12 Outpatient MHIE MHIE [id number] Memoria 10:15:00 10:15:00 10 cuco [place] 2019-11-12 2019-11-12 [facility]patient [facility] [id number] 10:15:00 10:15:00 David 10 Salo 2019-11-03 2019-11-03 Out[facility] [id number] Common 11:00:00 11:00:[address] [place] [address] [facility] 2019-11-03 2019-11-03 Outpatient [facility] [id number] Common 09:23:00 09:23:[address] [place] [address] [facility] 2019-09-16 2019-09-16 Outpatient [facility] [id number] Common 13:52:00 13:52:[address] [place] [address] [facility] 2019-08-03 2019-08-03 Outpatient [facility] [id number] Common 08:04:00 08:04:00 [place] [address] [facility] 2019-07-29 2019-07-29 [facility] [id number] Common 10:00:00 10:00:[address] [place] [address] [facility] 2019-07-29 2019-07-29 [facility] [id number] Common 09:00:00 09:00:[address] [place] [address] [facility] 2019-05-12 2019-05-13 Outpatient nullFlavo MNA [id number] Memoria 16:00:00 04:59:59 r Neurology 09 l Tal Gladstone 2019-05-12 2019-05-13 Outpatient nullFlavo MNA [id number] Memoria 16:00:00 04:59:59 r Neurology 09 l [place] Christofer 2019-05-12 2019-05-12 Outpatient Dalia, MHMISCHER MISCHER [id number] 11:00:00 23:59:59 David Chicho Leong 2019-05-12 2019-05-12 Outpatient MHIE MHIE [id number] Memoria 11:00:00 11:00:00 09 l Christofer 2019-04-08 2019-04-08 Outpatient Alen-ayo [facility] [id number] [facility] 07:18:00 07:18:00 _A_ [id number] Family Practic e 2019-04-07 2019-04-07 [facility] [id number] Common 08:41:00 08:41:[address] [place] [address] [facility] 2019-03-30 2019-03-30 [facility] [id number] Common 10:00:00 10:00:[address] [place] [address] [facility] 2018-12-26 2018-12-26 [facility] [id number] Common 10:00:00 10:00:[address] [place] [address] [facility] 2018-11-25 2018-11-25 [facility] [id number] Common 10:20:00 10:20:[address] [place] [address] [facility] 2018-11-10 2018-11-11 Outpatient nullFlavo MNA [id number] Memoria 16:00:00 04:59:59 r Neurology 08 l Tal Christofer 2018-11-10 2018-11-11 Outpatient nullFlavo MNA [id number] Memoria 16:00:00 04:59:59 r Neurology 08 cuco Beaulieu 2018-11-10 2018-11-10 [id number] 11:00:00 23:59:59 Davidcharleen Leong 2018-11-10 2018-11-10 Outpatient MHIE IE [id number] Memoria 11:00:00 11:00:00 08 cuco Beaulieu 2018-10-28 2018-10-28 Ambulatory nullFlavo MNA [id number] Memoria 14:15:00 14:15:00 Pre-Reg r Neurology 07 l Tal Dyerann 2018-10-28 2018-10-28 Ambulatory nullFlavo MNA [id number] Memoria 14:15:00 14:15:00 Pre-Reg r Neurology 07 l Tal Christofer 2018-10-28 2018-10-28 Outpatient MHIE IE [id number] Memoria 09:15:00 09:15:00 Edgar Beaulieu 2018-10-28 2018-10-28 Outpatient Dal[facility] [id number] 09:15:00 09:15:00 Davidcharleen Leong 2018-10-16 2018-10-16 [facility] [id number] Common 09:00:00 09:00:[address] [place] [address] [facility] 2018-08-27 2018-08-27 [facility] [id number] Common 11:40:00 11:40:[address] [place] [address] [facility] 2018 2018 [facility] [id number] Common 10:16:00 10:16:[address] [place] [address] [facility] 2018-07-18 2018-07-18 Ambulatory nullFlavo MNA [id number] Memoria 15:00:00 15:00:00 Pre-Reg r Neurology 01 l [place] Christofer 2018-07-18 2018-07-18 Ambulatory nullFlavo MNA [id number] Memoria 15:00:00 15:00:00 Pre-Reg r Neurology 01 l [place] Christofer 2018-07-18 2018-07-18 Outpatient MHIE MHIE [id number] Memoria 10:00:00 10:00:00 01 cuco Gladstone 2018-07-18 2018-07-18 Outpatient Dalia MHMISCHER MHMISCHER [id number] 10:00:00 10:00:00 David 01 Salo 2018-07-02 2018-07-03 Outpatient nullFlavo MNA [id number] Memoria 14:30:00 04:59:59 r Neurology 06 l Tal Beaulieu 2018-07-02 2018-07-03 Outpatient nullFlavo MNA [id number] Memoria 14:30:00 04:59:59 r Neurology 06 l Tal Beaulieu 2018-07-02 2018-07-02 Outpatient Dalia MHMISCHER MHMISCHER [id number] 09:30:00 23:59:59 David Topher Leong 2018-07-02 2018-07-02 Outpatient MHIE MHIE [id number] Memoria 09:30:00 09:30:00 06 cuco Christofer 2018-06-19 2018-06-19 [facility] [id number] Common 08:28:00 08:28:[address] [place] [address] Family [facility] 2018-05-20 2018-05-20 [facility] [id number] Common 09:30:00 09:30:00 t [facility] 2018-04-28 2018-04-28 [facility] [id number] Common 16:04:00 16:04:[address] [place] [address] Family - [facility] 2018-04-10 2018-04-10 [facility] [id number] Common 09:30:00 09:30:[address] [place] [address] Family [facility] 2018-04-07 2018-04-07 [facility] [id number] Common 14:59:00 14:59:[address] [place] [address] Family [facility] 2018-04-01 2018-04-01 Outpatient MHIE MHIE [id number] Memoria 11:00:00 11:00:00 05 cuco Beaulieu 2018-04-01 2018-04-01 Outpatient MHIE MHIE [id number] Memoria 11:00:00 11:00:00 05 cuco Beaulieu 2018-03-11 2018-03-13 Phone nullFlavo MNA [id number] Memoria 14:53:00 05:59:59 Message r Neurology 01 l Tal Beaulieu 2018-03-11 2018-03-13 Phone nullFlavo MNA [id number] Memoria 14:53:00 05:59:59 Message r Neurology 01 l Tal Beaulieu 2018-03-11 2018-03-12 Outpatient MHTNSCHER MHMISCHER [id number] 08:53:00 23:59:59 2018-01-28 2018-01-30 Phone nullFlavo MNA [id number] Memoria 15:51:00 05:59:59 Message r Neurology 00 l Tal Dyerann 2018-01-28 2018-01-30 Phone nullFlavo MNA [id number] Memoria 15:51:00 05:59:59 Message r Neurology 00 l Tal Beaulieu 2018-01-28 2018-01-29 Outpatient MHTNSCHER MHMISCHER [id number] 09:51:00 23:59:59 00 2017-12-31 2018-01-01 Outpatient nullFlavo MNA [id number] Memoria 17:15:00 05:59:59 r Neurology 04 l Tal Dyerann 2017-12-31 2018-01-01 Outpatient nullFlavo MNA [id number] Memoria 17:15:00 05:59:59 r Neurology 04 l Tal Dyerann 2017-12-31 2017-12-31 [id number] 11:15:00 23:59:59 David Mignon Salo 2017-12-31 2017-12-31 Outpatient MHIE MHIE [id number] Memoria 11:15:00 11:15:00 04 cuco Christofer 2017-12-02 2017-12-03 Outpatient nullFlavo MNA [id number] Memoria 18:00:00 04:59:59 r Neurology 03 l Tal Dyerann 2017-12-02 2017-12-03 Outpatient nullFlavo MNA [id number] Memoria 18:00:00 04:59:59 r Neurology 03 cuco Tal Beaulieu 2017-12-02 2017-12-02 [id number] 13:00:00 23:59:59 David Geri Leong 2017-12-02 2017-12-02 Outpatient MHIE IE [id number] Memoria 13:00:00 13:00:00 03 cuco Christofer 2017-11-05 2017-11-05 Outpatient MHIE IE [id number] Memoria 14:00:00 14:00:00 02 cuco Christofer 2017-11-05 2017-11-05 Outpatient MHIE MHIE [id number] Memoria 14:00:00 14:00:00 02 cuco Beaulieu 2017-09-26 2017-09-26 [facility] [id number] Common 10:00:00 10:00:00 t Bone Bone and Spiri t and Joint [facility] - [facility] 2017-09-05 2017-09-05 [facility] [id number] Common 09:00:00 09:00:[address] [place] [address] [facility] 2017-07-18 2017-07-18 Outpatient IE IE [id number] Memoria 10:45:00 10:45:00 00 cuco Beauleiu 2017-07-18 2017-07-18 Outpatient IE IE [id number] Memoria 10:45:00 10:45:00 00 cuco Beaulieu 2017-07-11 2017-07-11 [facility] [id number] Common 11:15:00 11:15:[address] [place] [address] [facility] 2017-07-01 2017-07-01 [facility] [id number] Common 11:15:00 11:15:00 t Urgent Urgent Care [facility] 2017-06-06 2017-06-06 [facility] [id number] Common 08:45:00 08:45:[address] [address] [facility] Results Test Description Test Time Test Comments Results Result Comments Source CHEM PANEL 2021-08-09 12:07:00 Test Item Value Reference Range Interpretation Comme nts ALANINE AMINOTRANSFERASE (test code = ALANINE AMINOTRANSFERASE) 12 9-46 [facility]RxadzfsKNZTEJPYTO8617-75-14 12:07:00 Test Item Value Reference Range Interpretation Comments WBC X 10x3 (test code = WBC X 10x3) 6.6 3.8-10.8 [facility]vinePbrqmdzNQYMVTKSBG6788-77-47 12:07:00 Test Item Value Reference Range Interpretation Comments RBC X 10x6 (test code = RBC X 10x6) 3.81 4.20-5.80 [facility]vineMocjilbRNAKGVFOGG7081-29-74 12:07:00 Test Item Value Reference Range Interpretation Comments Hgb (test code = Hgb) 12.1 13.2-17.1 [facility]vineCjdoiucOKXFBGGEQB5193-43-19 12:07:00 Test Item Value Reference Range Interpretation Comments Hct (test code = Hct) 36.8 38.5-50.0 [facility]rapevineNjiwuvcGICCRBSLYD8166-27-81 12:07:00 Test Item Value Reference Range Interpretation Comments MCV (test code = MCV) 96.6 80.0-100.0 [facility]vineQqgniyhPCQHQRMYIH4090-82-18 12:07:00 Test Item Value Reference Range Interpretation Comments MCH (test code = MCH) 31.8 pg 27.0-33.0 [facility] GrapevineWankwrrSMZQFTCFAQ2779-64-96 12:07:00 Test Item Value Reference Range Interpretation Comments MCHC (test code = MCHC) 32.9 32.0-36.0 [facility]rapevineZgsytdnWAYSUZQHCR7044-47-32 12:07:00 Test Item Value Reference Range Interpretation Comments RDW (test code = RDW) 12.6 11.0-15.0 [facility]rapevineJvnecdnDGWEGQAHYY3010-86-51 12:07:00 Test Item Value Reference Range Interpretation Comments Platelet (test code = Platelet) 200 140-400 [facility]rapevineVigjjmkKUONUDBGKH4093-03-80 12:07:00 Test Item Value Reference Range Interpretation Comments MPV (test code = MPV) 11.2 7.5-12.5 [facility]rapevineAfspyhiYQBITLIXSV0740-75-59 12:07:00 Test Item Value Reference Range Interpretation Comments Neutrophils # (test code = Neutrophils 3848 5510-9601 #) [place] 837952-06-22 12:07:00 Test Item Value Reference Range Interpretation Comments Lymphocytes # (test code = Lymphocytes 1318 628-9007 #) [facility]rapevineAbtliufUDMPTEXBSD9202-69-45 12:07:00 Test Item Value Reference Range Interpretation Comments Monocytes # (test code = Monocytes #) 673 200-950 [facility]rapevineYyultuzEMUDMOSRSB7354-23-02 12:07:00 Test Item Value Reference Range Interpretation Comments Eosinophils # (test code = Eosinophils 436 15-500 #) [facility]rapevineDcdtjpaXGYPTEHNTD1891-92-22 12:07:00 Test Item Value Reference Range Interpretation Comments Basophils # (test code 59 See_Comment [Aut omated message] The = Basophils #) system which generated this result tra nsmitted reference range : <=200. The reference r david was not used to int erpret this result as normal/abnormal . [facility]rapevineIpravviMJLUJOBATC8755-51-54 12:07:00 Test Item Value Reference Range Interpretation Comments Segs (test code = Segs) 58.3 [facility]rapevineYlsdptrUOEVINKWAJ5440-97-26 12:07:00 Test Item Value Reference Range Interpretation Comments Lymphocytes (test code = Lymphocytes) 24.0 [facility]rapevineFwjjqsuVYBTWWIPLK7920-96-52 12:07:00 Test Item Value Reference Range Interpretation Comments Monocytes (test code = Monocytes) 10.2 [facility]rapevineVzxwoggHCKXOYGWJF4040-03-60 12:07:00 Test Item Value Reference Range Interpretation Comments Eosinophils (test code = Eosinophils) 6.6 [facility]rapevineVascvqmHZZTIMXZWK2006-00-39 12:07:00 Test Item Value Reference Range Interpretation Comments Basophils (test code = Basophils) 0.9 [facility]rapevineJxizeayQFVDEJDOGD6842-34-75 12:07:00 Test Item Value Reference Range Interpretation Comments Sed Rate (test code = Sed Rate) 48 [facility]KnftblsYVYHTBKPRG0948-08-55 12:07:00 Test Item Value Reference Range Interpretation Comments C-REACTIVE PROTEIN (test code = 4.5 C-REACTIVE PROTEIN) [facility]2022-06-22 12:07:00 Test Item Value Reference Range Interpretation Comments Vitamin B12 Lvl (test code = Vitamin 730 228-4720 B12 Lvl) [facility]2022-06-22 12:07:00 Test Item Value Reference Range Interpretation Comments Glucose Lvl (test code = Glucose Lvl) 88 65-99 [place] 123792-06-22 12:07:00 Test Item Value Reference Range Interpretation Comments BUN (test code = BUN) 16 7-25 [place] 123792-06-22 12:07:00 Test Item Value Reference Range Interpretation Comments Creatinine Lvl (test code = Creatinine 0.98 0.70-1.18 Lvl) [place] 123792-06-22 12:07:00 Test Item Value Reference Range Interpretation Comments eGFR NON-AFR. SAO TOMEAN (test code = 74 eGFR NON-AFR. SAO TOMEAN) [place] 123792-06-22 12:07:00 Test Item Value Reference Range Interpretation Comments eGFR (test code = eGFR 85 ) [place] 123792-06-22 12:07:00 Test Item Value Reference Range Interpretation Comments B/C Ratio (test code = B/C NOT APPLICABLE 08-09 Ratio) [place] 123792-06-22 12:07:00 Test Item Value Reference Range Interpretation Comments Sodium Lvl (test code = Sodium Lvl) 138 135-146 [place] 123792-06-22 12:07:00 Test Item Value Reference Range Interpretation Comments Potassium Lvl (test code = Potassium 4.7 3.5-5.3 Lvl) [place] 837952-06-22 12:07:00 Test Item Value Reference Range Interpretation Comments Monocytes # (test code = Monocytes #) 673 200-950 [place] 837952-06-22 12:07:00 Test Item Value Reference Range Interpretation Comments Eosinophils # (test code = Eosinophils 436 15-500 #) [place] 837952-06-22 12:07:00 Test Item Value Reference Range Interpretation Comments Basophils # (test code 59 See_Comment [Aut omated message] The = Basophils #) system which generated this result tra nsmitted reference range : <=200. The reference r david was not used to int erpret this result as normal/abnormal . [place] 123792-06-22 12:07:00 Test Item Value Reference Range Interpretation Comments Chloride Lvl (test code = Chloride Lvl) 102 98-110 [place] 837952-06-22 12:07:00 Test Item Value Reference Range Interpretation Comments Segs (test code = Segs) 58.3 [place] 837952-06-22 12:07:00 Test Item Value Reference Range Interpretation Comments Lymphocytes (test code = Lymphocytes) 24.0 [place] 837952-06-22 12:07:00 Test Item Value Reference Range Interpretation Comments Monocytes (test code = Monocytes) 10.2 [place] 837952-06-22 12:07:00 Test Item Value Reference Range Interpretation Comments Eosinophils (test code = Eosinophils) 6.6 [place] 837952-06-22 12:07:00 Test Item Value Reference Range Interpretation Comments Basophils (test code = Basophils) 0.9 [place] 837952-06-22 12:07:00 Test Item Value Reference Range Interpretation Comments Sed Rate (test code = Sed Rate) 48 [place] 533932-06-22 12:07:00 Test Item Value Reference Range Interpretation Comments C-REACTIVE PROTEIN (test code = 4.5 C-REACTIVE PROTEIN) [facility]2022-06-22 12:07:00 Test Item Value Reference Range Interpretation Comments Vitamin B12 Lvl (test code = Vitamin 189 378-8535 B12 Lvl) [facility]2022-06-22 12:07:00 Test Item Value Reference Range Interpretation Comments Glucose Lvl (test code = Glucose Lvl) 88 65-99 [place] 123792-06-22 12:07:00 Test Item Value Reference Range Interpretation Comments BUN (test code = BUN) 16 7-25 [place] 123792-06-22 12:07:00 Test Item Value Reference Range Interpretation Comments Creatinine Lvl (test code = Creatinine 0.98 0.70-1.18 Lvl) [place] 123792-06-22 12:07:00 Test Item Value Reference Range Interpretation Comments eGFR NON-AFR. SAO TOMEAN (test code = 74 eGFR NON-AFR. SAO TOMEAN) [place] 123792-06-22 12:07:00 Test Item Value Reference Range Interpretation Comments eGFR (test code = eGFR 85 ) [place] 123792-06-22 12:07:00 Test Item Value Reference Range Interpretation Comments B/C Ratio (test code = B/C NOT APPLICABLE 08-09 Ratio) [place] 123792-06-22 12:07:00 Test Item Value Reference Range Interpretation Comments Sodium Lvl (test code = Sodium Lvl) 138 135-146 [place] 123792-06-22 12:07:00 Test Item Value Reference Range Interpretation Comments Potassium Lvl (test code = Potassium 4.7 3.5-5.3 Lvl) [facility]2022-06-22 12:07:00 Test Item Value Reference Range Interpretation Comments Chloride Lvl (test code = Chloride Lvl) 102 98-110 [place] 123792-06-22 12:07:00 Test Item Value Reference Range Interpretation Comments CO2 (test code = CO2) 29 20-32 [facility]2022-06-22 12:07:00 Test Item Value Reference Range Interpretation Comments Calcium Lvl (test code = Calcium Lvl) 9.5 8.6-10.3 [facility]2022-06-22 12:07:00 Test Item Value Reference Range Interpretation Comments Total Protein (test code = Total 7.3 6.1-8.1 Protein) [facility]2022-06-22 12:07:00 Test Item Value Reference Range Interpretation Comments CO2 (test code = CO2) 29 20-32 [facility]2022-06-22 12:07:00 Test Item Value Reference Range Interpretation Comments Albumin Lvl (test code = Albumin Lvl) 4.0 3.6-5.1 [place] 123792-06-22 12:07:00 Test Item Value Reference Range Interpretation Comments Globulin (test code = Globulin) 3.3 1.9-3.7 [place] 123792-06-22 12:07:00 Test Item Value Reference Range Interpretation Comments A/G Ratio (test code = A/G Ratio) 1.2 1.0-2.5 [place] 123792-06-22 12:07:00 Test Item Value Reference Range Interpretation Comments Bili Total (test code = Bili Total) 0.7 0.2-1.2 [place] 123792-06-22 12:07:00 Test Item Value Reference Range Interpretation Comments Alk Phos (test code = Alk Phos) 82 35-144 [facility]2022-06-22 12:07:00 Test Item Value Reference Range Interpretation Comments ASPARTATE TRANSAMINASE (test code = 20 10-35 ASPARTATE TRANSAMINASE) [facility]2022-06-22 12:07:00 Test Item Value Reference Range Interpretation Comments ALANINE AMINOTRANSFERASE (test code = 12 9-46 ALANINE AMINOTRANSFERASE) [facility]vineYkzabvfETHBJBIDGC3279-33-81 12:07:00 Test Item Value Reference Range Interpretation Comments WBC X 10x3 (test code = WBC X 10x3) 6.6 3.8-10.8 [facility]vineKnkeqowXGMQDLOZJX1489-54-55 12:07:00 Test Item Value Reference Range Interpretation Comments RBC X 10x6 (test code = RBC X 10x6) 3.81 4.20-5.80 [facility]rapevineLkjfwgaVZUUYCTEZK3035-97-01 12:07:00 Test Item Value Reference Range Interpretation Comments Hgb (test code = Hgb) 12.1 13.2-17.1 [facility]rapevineWdgnuhiCQAFWMDDNR6750-21-22 12:07:00 Test Item Value Reference Range Interpretation Comments Hct (test code = Hct) 36.8 38.5-50.0 [facility] GrapevineXuevnplJDQGOXHHCL5396-39-65 12:07:00 Test Item Value Reference Range Interpretation Comments MCV (test code = MCV) 96.6 80.0-100.0 [facility] GrapevineRsczgrbOMESUBLYNU7136-10-16 12:07:00 Test Item Value Reference Range Interpretation Comments MCH (test code = MCH) 31.8 pg 27.0-33.0 [facility]rapevineXeshpbmACYCHDMRYB3694-45-60 12:07:00 Test Item Value Reference Range Interpretation Comments MCHC (test code = MCHC) 32.9 32.0-36.0 [facility] GrapevineKbayvfhXSKRCWSRPS8194-30-22 12:07:00 Test Item Value Reference Range Interpretation Comments RDW (test code = RDW) 12.6 11.0-15.0 [place] 837952-06-22 12:07:00 Test Item Value Reference Range Interpretation Comments Platelet (test code = Platelet) 200 140-400 [facility] GrapevineNxccwkqDLWEAMOUZQ3016-23-50 12:07:00 Test Item Value Reference Range Interpretation Comments MPV (test code = MPV) 11.2 7.5-12.5 [place] 837952-06-22 12:07:00 Test Item Value Reference Range Interpretation Comments Neutrophils # (test code = Neutrophils 3848 7692-2586 #) [facility]vineSxiqxlkPAJHWDGVKN3938-09-19 12:07:00 Test Item Value Reference Range Interpretation Comments Lymphocytes # (test code = Lymphocytes [phone] #) [facility]2022-06-22 12:07:00 Test Item Value Reference Range Interpretation Comments Calcium Lvl (test code = Calcium Lvl) 9.5 8.6-10.3 [facility]2022-06-22 12:07:00 Test Item Value Reference Range Interpretation Comments Total Protein (test code = Total 7.3 6.1-8.1 Protein) [facility]2022-06-22 12:07:00 Test Item Value Reference Range Interpretation Comments Albumin Lvl (test code = Albumin Lvl) 4.0 3.6-5.1 [facility]2022-06-22 12:07:00 Test Item Value Reference Range Interpretation Comments Globulin (test code = Globulin) 3.3 1.9-3.7 [facility]2022-06-22 12:07:00 Test Item Value Reference Range Interpretation Comments A/G Ratio (test code = A/G Ratio) 1.2 1.0-2.5 [facility]2022-06-22 12:07:00 Test Item Value Reference Range Interpretation Comments Bili Total (test code = Bili Total) 0.7 0.2-1.2 [facility]2022-06-22 12:07:00 Test Item Value Reference Range Interpretation Comments Alk Phos (test code = Alk Phos) 82 35-144 [facility]2022-06-22 12:07:00 Test Item Value Reference Range Interpretation Comments ASPARTATE TRANSAMINASE (test code = 20 10-35 ASPARTATE TRANSAMINASE) [facility]
--- NOTE | 2022-04-02 13:02 | EDPHYS ---
Physician Documentation [facility] Name: Terrence Monroy Age: 76 yrs Sex: Male : 1945 Arrival Date: 04/02/2022 Time: 12:38 Bed IW3 Private MD: [facility] ED Physician Hamilton Cunningham HPI: 04/02 13:04 This 76 yrs old Male presents to ER via Ambulatory with complaints of Rash. rn 13:04 The patient's rash thought to be caused by an unknown cause. The rash is located on the rn body diffusely. The rash can be described as erythematous, papular. Onset: The symptoms/episode began/occurred 3 week(s) ago. Associated signs and symptoms: Pertinent positives: itching, Pertinent negatives: fever, swelling of lips, swelling of throat, swelling of tongue. Severity of symptoms: At their worst the symptoms were moderate in the emergency department the symptoms are unchanged. The patient has experienced a previous episode. The patient has been recently seen by a physician:. Pt reports rash, diffuse, for 3 weeks, seen and given pepcid and zyrtec with some improvement, but now rash getting worse. NO fever. NO sob or swelling. Reports itching. Seen by dermatology and prescribed steroid creams. . Historical: - Allergies: 12:56 Aspirin; 5 12:56 PENICILLINS; 5 12:56 Sulfa (Sulfonamide Antibiotics); jh5 12:56 Tetanus-Diphtheria Toxoids-Td; jh5 - PMHx: 12:56 CHF; COPD; High Cholesterol; Hypertension; jh5 - Immunization history:: Adult Immunizations up to date. - Social history:: Smoking status: Patient denies any tobacco usage or history of. - Family history:: not pertinent. - Hospitalizations: : No recent hospitalization is reported. ROS: 13:04 Constitutional: Negative for fever, chills, and weight loss, Eyes: Negative for injury, rn pain, redness, and discharge, Cardiovascular: Negative for chest pain, palpitations, and edema, Respiratory: Negative for shortness of breath, cough, wheezing, and pleuritic chest pain, Abdomen/GI: Negative for abdominal pain, nausea, vomiting, diarrhea, and constipation, Back: Negative for injury and pain, MS/Extremity: Negative for injury and deformity, Skin: + rash and itching Neuro: Negative for headache, weakness, numbness, tingling, and seizure. Exam: 13:04 Constitutional: This is a well developed, well nourished patient who is awake, alert, rn and in no acute distress. Head/Face: Normocephalic, atraumatic. Cardiovascular: Regular rate and rhythm Respiratory: No increased work of breathing, no retractions or nasal flaring. Skin: Warm, dry, + erythematous papular rash to neck/arms/chest/abd/legs. No bullae. No skin sloughing. Papules on base of erythema. MS/ Extremity: Pulses equal, no cyanosis. Vital Signs: 12:51 BP 156 / 88; Pulse 76; Resp 18; Temp 98.6; Pulse Ox 99% ; Pain 0/10; jh5 MDM: 12:39 Patient medically screened. rn 13:04 Differential diagnosis: allergic reaction, folliculitis. Data reviewed: vital signs, rn nurses notes, old medical records, and as a result, I will discharge patient. Counseling: I had a detailed discussion with the patient and/or guardian regarding: the historical points, exam findings, and any diagnostic results supporting the discharge/admit diagnosis, the need for outpatient follow up, to return to the emergency department if symptoms worsen or persist or if there are any questions or concerns that arise at home. Special discussion: I discussed with the patient/guardian in detail that at this point there is no indication for admission to the hospital. It is understood, however, that if the symptoms persist or worsen the patient needs to return immediately for re-evaluation. Administered Medications: No medications were administered Disposition Summary: 04/02/22 13:02 Discharge Ordered Location: Home rn Problem: new rn Symptoms: have improved rn Condition: Stable rn Diagnosis - Rash and other nonspecific skin eruption rn Followup: rn - With: Private Physician - When: As needed - Reason: Recheck today's complaints, Re-evaluation by your physician Discharge Instructions: - Discharge Summary Sheet rn - Rash, Adult rn Forms: - Medication Reconciliation Form rn - Thank You Letter rn - Antibiotic aerospace control and warning systems - Prescription Opioid Use rn Prescriptions: - Clindamycin HCl 300 mg Oral Capsule - take 1 capsule by ORAL route every 6 hours for 10 days; 40 capsule; Refills: 0, rn Product Selection Permitted - Medrol (Ejz) 4 mg Oral Tablets, Dose Pack - take 1 tablet by ORAL route as directed - follow package instructions; 1 rn packet; Refills: 0, Product Selection Permitted Signatures: Hamilton Cunningham MD MD rn ReubenZee RN RN jh5
--- NOTE | 2022-04-02 13:02 | ER ---
Nurse's Notes [facility] Name: Terrence Monroy Age: 76 yrs Sex: Male : 1945 Arrival Date: 04/02/2022 Time: 12:38 Bed IW3 Private MD: Mejia Salazar Diagnosis: Rash and other nonspecific skin eruption Presentation: 04/02 12:51 Chief complaint: Patient states: I was here before and given zyrtec and pepcid for this jh5 rash and its gotten worse; I have seen 4 different doctors and its only getting worse. Coronavirus screen: Vaccine status: Patient reports receiving the 2nd dose of the covid vaccine. Client denies travel out of the [place] in the last 14 days. Ebola Screen: Patient negative for fever greater than or equal to 101.5 degrees Fahrenheit, and additional compatible Ebola Virus Disease symptoms Patient denies exposure to infectious person. Patient denies travel to an Ebola-affected area in the 21 days before illness onset. Initial Sepsis Screen: Does the patient meet any 2 criteria? No. Patient's initial sepsis screen is negative. Does the patient have a suspected source of infection? No. Patient's initial sepsis screen is negative. Risk Assessment: Do you want to hurt yourself or someone else? Patient reports no desire to harm self or others. 12:51 Method Of Arrival: Ambulatory [facility] 12:51 Acuity: CARMEN 3 jh5 Triage Assessment: 12:56 General: Appears in no apparent distress. uncomfortable, slender, well groomed, well jh5 developed, Behavior is calm, cooperative, appropriate for age. Pain: Denies pain. Historical: - Allergies: 12:56 Aspirin; 5 12:56 PENICILLINS; jh5 12:56 Sulfa (Sulfonamide Antibiotics); jh5 12:56 Tetanus-Diphtheria Toxoids-Td; jh5 - PMHx: 12:56 CHF; COPD; High Cholesterol; Hypertension; jh5 - Immunization history:: Adult Immunizations up to date. - Social history:: Smoking status: Patient denies any tobacco usage or history of. - Family history:: not pertinent. - Hospitalizations: : No recent hospitalization is reported. Vital Signs: 12:51 BP 156 / 88; Pulse 76; Resp 18; Temp 98.6; Pulse Ox 99% ; Pain 0/10; 5 ED Course: 12:38 Patient arrived in ED. am2 12:38 Mejia Salazar DO is Private Physician. am2 12:39 Hamilton Cunningham MD is Attending Physician. rn 12:56 Triage completed. jh5 12:56 Arm band placed on right wrist. 5 13:06 No provider procedures requiring assistance completed. Patient did not have IV access [facility] during this emergency room visit. Administered Medications: No medications were administered Outcome: 13:02 Discharge ordered by . rn 13:06 Discharged to home ambulatory. 5 13:06 Condition: good 13:06 Discharge instructions given to patient, Instructed on discharge instructions, follow up and referral plans. medication usage, safety practices. 13:06 Patient left the ED. [facility] Signatures: Hamilton Cunningham MD MD rn Moreno, Amanda 2 Zee Alexis, RN RN [facility]
[2022-04-02 13:19] VITALS: BP 156/88; TEMP 98.6; O2SAT 99
== END 2022-04-02 13:06 | disposition home or self-care (01) ==
LOC: ER 12:34
DX: R21 Rash and other nonspecific skin eruption (principal); Z88.0 Allergy status to penicillin; Z88.2 Allergy status to sulfonamides; Z88.6 Allergy status to analgesic agent; Z88.7 Allergy status to serum and vaccine
CPT/HCPCS: 99281

== ENCOUNTER → 2023-03-12 | Emergency (ER) | payer OTHER ==
--- NOTE | 2023-03-12 09:38 | EDPHYS ---
Physician Documentation [facility] Name: Terrence Monroy Age: 77 yrs Sex: Male : 1945 Arrival Date: 03/12/2023 Time: 09:05 Bed 19 Private MD: ED Physician Christopher Farfan HPI: 03/12 09:34 This 77 yrs old Male presents to ER via Ambulatory with complaints of Flu ec2 Symptoms. 09:34 Patient arrives today for evaluation of upper respiratory symptoms. Patient reports ec2 that he is having a lot of congestion for the past approximately 10 days. Reports no fevers or chills, no nausea or vomiting. Patient reports that he has not been having any issues p.o. intake, denies any issues with hydration. Patient reports no difficulty breathing. Denies any significant cough symptoms.. Historical: - Allergies: 09:19 Aspirin; iw 09:19 PENICILLINS; iw 09:19 Sulfa (Sulfonamide Antibiotics); iw 09:19 Tetanus-Diphtheria Toxoids-Td; iw 09:19 TETANUS VACCINES AND TOXOID; iw - PMHx: 09:19 CHF; COPD; High Cholesterol; Hypertension; iw - Immunization history:: Adult Immunizations up to date. - Social history:: Smoking status: Patient denies any tobacco usage or history of. ROS: 09:34 Constitutional: as per hpi ec2 Exam: 09:34 Constitutional: GEN: NAD Head: atraumatic Eyes: EOMI Ears: External ears are normal. ec2 Mouth: No posterior pharyngeal erythema, no exudates appreciated. No anterior cervical lymphadenopathy noted. Nose: Congestion noted. CV: regular rate LUNGS: no respiratory distress, no wheezes, rales, or rhonchi ABD: non-distended SKIN: no evidence of rashes MSK: no evidence of trauma NEURO: moves all extremities equally Vital Signs: 09:24 BP 119 / 80; Pulse 93; Resp 18; Temp 97.9; Pulse Ox 98% on R/A; Weight 98.43 kg; Height ll1 5 ft. 11 in. ; Pain 6/10; 09:24 Body Mass Index 30.27 (98.43 kg, 180.34 cm) ll1 09:24 Pain Scale: Adult ll1 MDM: 09:30 Patient medically screened. ec2 09:34 Data reviewed: vital signs. ED course: Patient arrives today for evaluation of ec2 congestion. Examination remarkable for well-appearing nontoxic individual is otherwise in no acute distress with reassuring vital signs. I suspect bacterial sinusitis given the duration of the symptoms. Low suspicion for pneumonia given lack of focal lung sounds, low suspicion for strep pharyngitis given lack of oropharyngeal findings. Will discharge home with antibiotics and steroids. Return precautions given.. Administered Medications: No medications were administered Disposition Summary: 03/12/23 09:37 Discharge Ordered Notes: Location: Home ec2 Condition: Stable ec2 Diagnosis - Acute maxillary sinusitis ec2 Followup: ec2 - With: Private Physician - When: - Reason: Recheck today's complaints Discharge Instructions: - Discharge Summary Sheet ec2 Forms: - Medication Reconciliation Form ec2 - Thank You Letter ec2 - Antibiotic Education ec2 - Prescription Opioid Use ec2 - Patient Portal Instructions ec2 - Leadership Thank You Letter ec2 Prescriptions: - Prednisone 20 mg Oral Tablet - take 1 tablet ORAL route once daily for 5 days; 5 tablet; Refills: 0, Product ec2 Selection Permitted - Doxycycline Hyclate 100 mg Oral tablet - take 1 tablet ORAL route every 12 hours; 14 tablet; Refills: 0, Product ec2 Selection Permitted Signatures: Tamika Ashby RN RN iw Christopher Farfan MD MD ec2 Corrections: (The following items were deleted from the chart) 09:46 09:37 Patient medically screened. ec2 ec2
--- NOTE | 2023-03-12 09:38 | ER ---
Nurse's Notes [facility] Name: Terrence Monroy Age: 77 yrs Sex: Male : 1945 Arrival Date: 03/12/2023 Time: 09:05 Bed 19 Private MD: Diagnosis: Acute maxillary sinusitis Presentation: 03/12 09:24 Chief complaint: Patient states: Cough, congestion, runny nose, fever for 1 week. ll1 Coronavirus screen: Vaccine status: Patient reports receiving the 2nd dose of the covid vaccine. Client denies travel out of the [place] in the last 14 days. congestion, cough unrelated to allergies, fatigue, fever, headache. Ebola Screen: Patient denies travel to an Ebola-affected area in the 21 days before illness onset. Initial Sepsis Screen: Does the patient meet any 2 criteria? No. Patient's initial sepsis screen is negative. Does the patient have a suspected source of infection? Yes: Productive cough/pneumonia. Risk Assessment: Do you want to hurt yourself or someone else? Patient reports no desire to harm self or others. Onset of symptoms was March 06, 2023. 09:24 Method Of Arrival: Ambulatory ll1 09:24 Acuity: CARMEN 3 ll1 Triage Assessment: 09:25 General: Appears in no apparent distress. Behavior is calm, cooperative, appropriate ll1 for age. Pain: Complains of pain in R HASSAN Pain currently is 6 out of 10 on a pain scale. Quality of pain is described as aching. EENT: Reports nasal congestion nasal discharge pain in forehead and right cheek. Respiratory: Reports cough that is. Historical: - Allergies: 09:19 Aspirin; iw 09:19 PENICILLINS; iw 09:19 Sulfa (Sulfonamide Antibiotics); iw 09:19 Tetanus-Diphtheria Toxoids-Td; iw 09:19 TETANUS VACCINES AND TOXOID; iw - PMHx: 09:19 CHF; COPD; High Cholesterol; Hypertension; iw - Immunization history:: Adult Immunizations up to date. - Social history:: Smoking status: Patient denies any tobacco usage or history of. Screenin:47 [facility] ED Fall Risk Assessment (Adult) Score/Fall Risk Level 0 - 2 = Low Risk ll1 Oriented to surroundings, Maintained a safe environment, Educated pt \T\ family on fall prevention, incl call for assistance when getting out of bed, Hourly rounding (assess needs \T\ fall precautionary measures) done. Abuse screen: Denies threats or abuse. Nutritional screening: No deficits noted. Tuberculosis screening: No symptoms or risk factors identified. Vital Signs: 09:24 BP 119 / 80; Pulse 93; Resp 18; Temp 97.9; Pulse Ox 98% on R/A; Weight 98.43 kg; Height ll1 5 ft. 11 in. ; Pain 6/10; 09:24 Body Mass Index 30.27 (98.43 kg, 180.34 cm) ll1 09:24 Pain Scale: Adult ll1 ED Course: 09:15 Patient arrived in ED. ts1 09:23 Christopher Farfan MD is Attending Physician. ec2 09:25 Triage completed. ll1 09:25 Arm band placed on Patient placed in an exam room, on a stretcher. ll1 09:42 Jolanta Arguello, RN is Primary Nurse. nj1 09:47 Patient has correct armband on for positive identification. Bed in low position. ll1 Provided Education on: n/a. 09:47 No provider procedures requiring assistance completed. Patient did not have IV access ll1 during this emergency room visit. Administered Medications: No medications were administered Medication: 09:47 VIS not applicable for this client. ll1 Outcome: 09:37 Discharge ordered by . ec2 09:47 Discharged to home ambulatory, ll1 09:47 Condition: stable 09:47 Discharge instructions given to patient, Instructed on discharge instructions, follow up and referral plans. medication usage, Demonstrated understanding of instructions, follow-up care, medications, Prescriptions given X 2, 09:47 Patient left the ED. ll1 Signatures: Tamika Ashby RN RN Cindy Harris RN RN 1 Jolanta Arguello, SHANNON ORTEGA nj1 [place] PAS PAS ts1 Christopher Farfan MD MD ec2
[2023-03-12 10:50] VITALS: BP 119/80; TEMP 97.9; O2SAT 98
== END ==
LOC: ER 09:05
DX: J01.00 Acute maxillary sinusitis, unspecified (principal); Z88.0 Allergy status to penicillin; Z88.2 Allergy status to sulfonamides; Z88.6 Allergy status to analgesic agent; Z88.7 Allergy status to serum and vaccine
CPT/HCPCS: 99283